=== PATIENT | female | born 1955 | race African-American/Black ===

== ENCOUNTER 2016-08-01 13:05 | Emergency (ER) | payer MEDICARE, OTHER ==
[~2016-08-01 13:05] MED LIST: ACET500T68 PO; ALBU2.5V13 NEB; AMLO5TAB4 PO; ARIP10TA13 PO; ATOR20TA PO; AZIT250T PO; BACL10TA PO; BENZ0.5T PO; CIPR500T94 PO; DARI15TA3 PO; DEXL60CA PO; DIVA500T2 PO; DULO30CA2 PO; ERGO500012 PO; FAMO-63 PO; FAMO20TA5 PO; FESO8TAB PO; FLUT16SP2 NS; FURO20TA3 PO; GABA-585 PO; HYDR-2666 PO; HYDR25TA9 PO; LACT10SO PO; LATA2.5D3 EACHEYE; LUBI24CA5 PO; MELO-150 PO; MESA800T2 PO; METF500T4; METF500T4 PO; OMEP10CA PO; ONDA-35 PO; OXYB10TA PO; OXYC-93 PO; POTA10TA31 PO; PROVENTIL HFA6.7 GM IH; QUET100T4 PO; RANI150C PO; ROPI1TAB2 PO; TOLT4CAP PO; VALS160T3 PO; VENTOLIN HFA18 GM IH; [UNRECOGNIZED DRUG - CODE] PO; [UNRECOGNIZED DRUG - CODE] PO; [UNRECOGNIZED DRUG - OTHER]
--- NOTE | 2016-08-01 13:20 | PHYS DOC ---
Past Medical History Past Medical History: Anxiety, Asthma, COPD, CVA, Depression, Diabetes-Type II , Diverticulitis, GERD, High Cholesterol, Hypertension, [place], Schizophrenia Additional Past Medical Histor: CATARCTS, COPD, NEUROPATHY, coloitis, overactive bladder Past Surgical History: Hysterectomy, Tonsillectomy, Other Additional Past Surgical Histo: CARPAL TUNNEL, HERNIA, Alcohol Use: None Drug Use: None Adult General Chief Complaint Chief Complaint: BLOOD IN URINE HPI HPI 60-year-old female presenting via EMS for persisting low back pain for the last several weeks and now gross hematuria for the last several days. She denies any fever or chills. She denies any chest pain or shortness of breath. She states the pain originates in her bilateral flank area and will radiate into her abdomen. She rates her pain a 7 out of 10 on the pain scale and states she has not yet taken anything for her symptoms. She has history of DM-II, HTN, hypercholesterolemia. Review of Systems Review of Systems Constitutional: Denies fever or chills [] Eyes: Denies change in visual acuity, redness, or eye pain [] HENT: Denies nasal congestion or sore throat [] Respiratory: Denies cough or shortness of breath [] Cardiovascular: No additional information not addressed in HPI [] GI: Denies abdominal pain, nausea, vomiting, bloody stools or diarrhea [] : Denies dysuria, has hematuria [] Musculoskeletal: Denies back pain or joint pain [] Integument: Denies rash or skin lesions [] Neurologic: Denies headache, focal weakness or sensory changes [] Endocrine: Denies polyuria or polydipsia [] Current Medications Current Medications Current Medications Medications (Trade) Dose Ordered Sig/Charmaine Start Time Stop Time Status Last Admin Dose Admin Acetaminophen (Tylenol) 1,000 mg 1X ONCE 08/01/16 15:00 08/01/16 15:01 DC 08/01/16 15:22 1,000 MG Fentanyl Citrate (Fentanyl 2ml Vial) 50 mcg 1X ONCE 08/01/16 13:30 08/01/16 14:32 DC Ondansetron HCl (Zofran) 4 mg 1X ONCE 08/01/16 13:30 08/01/16 13:31 DC Allergies Allergies Allergies Coded Allergies Type Severity Reaction Last Updated Verified Sulfa (Sulfonamide Antibiotics) Allergy Intermediate UNKNOWN REACTION 06/11/15 No adhesive tape Allergy Intermediate RASH 06/11/15 Yes latex Allergy Intermediate LATEX GLOVES CAUSE A RASH 06/11/15 Yes Penicillins Adverse Reaction Severe DIARRHEA 06/11/15 Yes atorvastatin Adverse Reaction Severe MYALGIA 06/11/15 Yes haloperidol Adverse Reaction Severe "I get stiff as a board" 06/11/15 Yes CLAIRE Inhibitors Adverse Reaction Intermediate BAD COUGH 06/11/15 Yes amoxicillin trihydrate Adverse Reaction Intermediate diarrhea 06/11/15 Yes aspirin Adverse Reaction Intermediate "Black tarry stools" 06/11/15 Yes Physical Exam Physical Exam Constitutional: Well developed, well nourished, no acute distress, non-toxic appearance. [] HENT: Normocephalic, atraumatic, bilateral external ears normal, oropharynx moist, no oral exudates, nose normal. [] Eyes: PERRLA, EOMI, conjunctiva normal, no discharge. [] Neck: Normal range of motion, no tenderness, supple, no stridor. [] Cardiovascular:Heart rate regular rhythm, no murmur [] Lungs & Thorax: Bilateral breath sounds clear to auscultation [] Abdomen: Bowel sounds normal, soft, no tenderness, no masses, no pulsatile masses. [] Skin: Warm, dry, no erythema, no rash. [] Back: Moderate paraspinal lumbar tenderness to palpation, mild bilateral CVA tenderness. [] Extremities: No tenderness, no cyanosis, no clubbing, ROM intact, no edema. [] Neurologic: Alert and oriented X 3, normal motor function, normal sensory function, no focal deficits noted. [] Psychologic: Affect normal, judgement normal, mood normal. [] Current Patient Data Vital Signs Vital Signs Date Time Temp Pulse Resp B/P Pulse Ox O2 Delivery O2 Flow Rate FiO2 08/01/16 15:27 73 18 119/58 97 Room Air 08/01/16 13:05 98.1 98.1 Lab Values Laboratory Tests Test 08/01/16 13:30 White Blood Count 8.2x10^3/uL (4.0-11.0) Red Blood Count 3.84x10^6/uL (3.50-5.40) Hemoglobin 10.6g/dL (12.0-15.5) L Hematocrit 33.5% (36.0-47.0) L Mean Corpuscular Volume 87fL (79-100) Mean Corpuscular Hemoglobin 28pg (25-35) Mean Corpuscular Hemoglobin Concent 32g/dL (31-37) Red Cell Distribution Width 12.9% (11.5-14.5) Platelet Count 286x10^3/uL (140-400) Neutrophils (%) (Auto) 62% (31-73) Lymphocytes (%) (Auto) 27% (24-48) Monocytes (%) (Auto) 8% (0-9) Eosinophils (%) (Auto) 1% (0-3) Basophils (%) (Auto) 1% (0-3) Neutrophils # (Auto) 5.1x10^3uL (1.8-7.7) Lymphocytes # (Auto) 2.3x10^3/uL (1.0-4.8) Monocytes # (Auto) 0.6x10^3/uL (0.0-1.1) Eosinophils # (Auto) 0.1x10^3/uL (0.0-0.7) Basophils # (Auto) 0.1x10^3/uL (0.0-0.2) Urine Collection Type Unknown Urine Color Adali Urine Clarity Clear Urine pH 5.5 Urine Specific [place] 1.025 Urine Protein Negativemg/dL (NEG-TRACE) Urine Glucose (UA) Negativemg/dL (NEG) Urine Ketones (Stick) Negativemg/dL (NEG) Urine Blood Negative (NEG) Urine Nitrite Negative (NEG) Urine Bilirubin Small (NEG) Urine Urobilinogen Dipstick 1.0mg/dL (0.2 mg/dL) Urine Leukocyte Esterase Negative (NEG) Urine RBC 0/HPF (0-2) Urine WBC Occ/HPF (0-4) Urine Squamous Epithelial Cells Many/LPF Urine Bacteria Few/HPF (0-FEW) Urine Hyaline Casts Occasional/HPF Urine Mucus Marked/LPF Sodium Level 144mmol/L (136-145) Potassium Level 3.7mmol/L (3.5-5.1) Chloride Level 106mmol/L (98-107) Carbon Dioxide Level 29mmol/L (21-32) Anion Gap 9 (6-14) Blood Urea Nitrogen 18mg/dL (7-20) Creatinine 0.9mg/dL (0.6-1.0) Estimated GFR (Cockcroft-Gault) 77.3 Glucose Level 99mg/dL (70-99) Calcium Level 9.0mg/dL (8.5-10.1) Laboratory Tests 08/01/16 13:30 Laboratory Tests 08/01/16 13:30 EKG EKG [] Radiology/Procedures Radiology/Procedures CT of the abdomen/pelvis without contrast demonstrated the following: [Axial imaging through the abdomen and pelvis was performed without contrast. The lung bases are clear. The liver and gallbladder are unremarkable. The pancreas and spleen are unremarkable. No adrenal mass is detected. No hydronephrosis is identified. There are calcific densities in the region of the proximal and mid ureters but appear to be outside of the ureters and consistent with phleboliths. The small and large bowel loops are normal caliber. There is no ascites. There is mild colonic diverticulosis but no evidence of acute diverticulitis. The bladder is unremarkable. Multiple pelvic phleboliths are present as well. Course & Med Decision Making Course & Med Decision Making Pertinent Labs and Imaging studies reviewed. (See chart for details) 60-year-old female who presented by EMS for ongoing hematuria and bilateral flank pain for the last several weeks. CT of her abdomen and pelvis without contrast was negative for any acute abnormalities. Her bloodwork also did not reveal any abnormalities. Her urinalysis did not reveal any signs of infection and there was no signs of blood. I do not see any indication at this time to put her on any antibiotic therapy. She'll be discharged home to follow closely for her ongoing back pain which is likely more musculoskeletal in etiology. Dragon Disclaimer Dragon Disclaimer This electronic medical record was generated, in whole or in part, using a voice recognition dictation system. Departure Departure Impression: Primary Impression: Flank pain Disposition: 01 HOME, SELF-CARE Condition: STABLE Referrals: ZAIDA VALDEZ MD (PCP) Patient Instructions: Flank Pain, [id number] Additional Instructions: Please follow up with your primary doctor in the next 2-3 days for your flank pain and your blood in the urine. Return to the ER if you develop any worsening of your symptoms. KAYDEN HUGHES DO Aug 01, 2016 13:20
[2016-08-01] MEDS ORDERED: ONDANSETRON PF 4 MG/2 ML VIAL. IV ONE (13:30)
[2016-08-01] MEDS ORDERED: FENTANYL PF 100 MCG/2 ML VIAL. IV ONE (13:30)
[2016-08-01 14:06] LABS: BASO # 0.1 x10^3/uL (0.0-0.2); BASO % 1 % (0-3); EOS % 1 % (0-3); HEMATOCRIT 33.5 % (36.0-47.0); HEMOGLOBIN 10.6 g/dL (12.0-15.5); LYMPH # 2.3 x10^3/uL (1.0-4.8); LYMPH % 27 % (24-48); MEAN CORPUSCULAR HEMOGLOBIN 28 pg (25-35); MEAN CORPUSCULAR HGB CONC 32 g/dL (31-37); MEAN CORPUSCULAR VOLUME 87 fL (79-100); MONO % 8 % (0-9); NEUT % 62 % (31-73); PLATELET COUNT 286 x10^3/uL (140-400); RED BLOOD COUNT 3.84 x10^6/uL (3.50-5.40); RED CELL DISTRIBUTION WIDTH 12.9 % (11.5-14.5); WHITE BLOOD COUNT 8.2 x10^3/uL (4.0-11.0)
[2016-08-01 14:09] LABS: CREATININE 0.9 mg/dL (0.6-1.0); GFR 77.3; POTASSIUM 3.7 mmol/L (3.5-5.1)
--- NOTE | 2016-08-01 14:32 | RAD ---
Indication: Hematuria. Axial imaging through the abdomen and pelvis was performed without contrast. The lung bases are clear. The liver and gallbladder are unremarkable. The pancreas and spleen are unremarkable. No adrenal mass is detected. No hydronephrosis is identified. There are calcific densities in the region of the proximal and mid ureters but appear to be outside of the ureters and consistent with phleboliths. The small and large bowel loops are normal caliber. There is no ascites. There is mild colonic diverticulosis but no evidence of acute diverticulitis. The bladder is unremarkable. Multiple pelvic phleboliths are present as well. Impression: 1. No evidence of urinary tract calculi or obstruction. 2. Uncomplicated diverticulosis. 3. No acute feature in the abdomen or pelvis is identified. PQRS Compliance Statement: One or more of the following individualized dose reduction techniques were utilized for this examination: 1. Automated exposure control 2. Adjustment of the mA and/or kV according to patient size 3. Use of iterative reconstruction technique
[2016-08-01 14:49] LABS: BILIRUBIN,URINE SMALL (NEG); GLUCOSE,URINE NEGATIVE (NEG); NITRITE,URINE NEGATIVE (NEG); PH,URINE 5.5; PROTEIN,URINE NEGATIVE (NEG-TRACE)
[2016-08-01 14:58] LABS: BACTERIA,URINE FEW /HPF (0-FEW); RBC,URINE 0 /HPF (0-2); SQUAMOUS EPITHELIAL CELL,UR MANY /LPF; WBC,URINE OCC /HPF (0-4)
[2016-08-01] MEDS ORDERED: ACETAMINOPHEN 500 MG TABLET PO ONE (15:00)
[2016-08-01 15:27] VITALS: BP 119/58
== END 2016-08-01 15:39 | disposition home or self-care (01) ==
LOC: ER 13:05
DX: R31.9 Hematuria, unspecified (principal); R10.9 Unspecified abdominal pain; J44.9 Chronic obstructive pulmonary disease, unspecified; F32.9 Major depressive disorder, single episode, unspecified; E11.40 Type 2 diabetes mellitus with diabetic neuropathy, unspecified; E78.00 Pure hypercholesterolemia, unspecified; F20.9 Schizophrenia, unspecified; I10 Essential (primary) hypertension; I25.2 Old myocardial infarction; K21.9 Gastro-esophageal reflux disease without esophagitis; M54.5 Low back pain; Z86.73 Personal history of transient ischemic attack (TIA), and cerebral infarction without residual deficits; Z88.0 Allergy status to penicillin; Z91.040 Latex allergy status; Z88.6 Allergy status to analgesic agent; Z88.1 Allergy status to other antibiotic agents; Z88.2 Allergy status to sulfonamides; Z88.8 Allergy status to other drugs, medicaments and biological substances; Z91.048 Other nonmedicinal substance allergy status; Z90.710 Acquired absence of both cervix and uterus
CPT/HCPCS: 36415; 74176; 80048; 81001; 85027; 99285-25

== ENCOUNTER 2016-09-27 14:19 | Emergency (ER) | payer MEDICARE, OTHER ==
[~2016-09-27] VITALS: Ht 161.3 cm; Wt 122.5 kg
[~2016-09-27 14:19] MED LIST changes: -ALBU2.5V13 NEB; +ALBU2.5V14 NEB
--- NOTE | 2016-09-27 15:28 | RAD ---
Chest, 2 views, 09/27/2016: History: Cough Comparison is made to a study from 06/26/2016. The heart size and pulmonary vascularity are normal. No pulmonary infiltrates are seen. There is no evidence of pleural fluid. Moderate spurring is present in the spine. IMPRESSION: No acute cardiopulmonary abnormality is detected.
--- NOTE | 2016-09-27 15:32 | ED.ADGEN ---
Past Medical History Past Medical History: Anxiety, Asthma, COPD, CVA, Depression, Diabetes-Type II , Diverticulitis, GERD, High Cholesterol, Hypertension, [place], Schizophrenia Additional Past Medical Histor: CATARCTS, COPD, NEUROPATHY, coloitis, overactive bladder Past Surgical History: Hysterectomy, Tonsillectomy, Other Additional Past Surgical Histo: CARPAL TUNNEL, HERNIA Alcohol Use: None Drug Use: None Adult General Chief Complaint Chief Complaint: COUGH HPI HPI Patient is a 60 year old woman, history of morbid obesity, COPD, CVA, CAD status post [place], type 2 diabetes mellitus with neuropathy, who presents emergency Department with complaint of cough, productive of white sputum over the past several days, back pain, body aches, sore throat and rhinorrhea. Patient denies any chest pain, is complaining of pain in the upper back, denies any respirophasic pain. Denies any hematemesis, states she has had some nausea, and no vomiting or diarrhea. Denies any weakness numbness or tingling, states that she feels a little bit lightheaded currently, but believes is could she is not yet eaten lunch. Patient states she's been compliant with all medications. Denies any injuries, any recent travel or surgery, history of DVT or PE. She states she did receive her flu vaccination this year. She has had positive sick contacts, her caregivers. No shortness of breath. No swelling in extremities. Review of Systems Review of Systems Constitutional: Objective fevers and chills. Eyes: Denies change in visual acuity. [] HENT: Nasal congestion and sore throat over the past several days. Respiratory: Cough, no shortness of breath, cough is productive of white sputum. Patient with soreness in the upper back. Cardiovascular: Denies chest pain or edema. [] GI: Denies abdominal pain, nausea, vomiting, bloody stools or diarrhea. [] : Denies dysuria. [] Musculoskeletal: He soreness in the upper back, no joint pain. Pain is worse with coughing. Integument: Denies rash. [] Neurologic: Denies headache, focal weakness or sensory changes. [] Endocrine: Denies polyuria or polydipsia. [] Lymphatic: Denies swollen glands. [] Psychiatric: Denies depression or anxiety. [] Current Medications Current Medications Current Medications Medications (Trade) Dose Ordered Sig/Charmaine Start Time Stop Time Status Last Admin Dose Admin Benzonatate (Tessalon Perle) 100 mg 1X ONCE 09/27/16 15:45 09/27/16 15:46 DC 09/27/16 16:02 100 MG Allergies Allergies Allergies Coded Allergies Type Severity Reaction Last Updated Verified Sulfa (Sulfonamide Antibiotics) Allergy Intermediate UNKNOWN REACTION 06/11/15 No adhesive tape Allergy Intermediate RASH 06/11/15 Yes latex Allergy Intermediate LATEX GLOVES CAUSE A RASH 06/11/15 Yes Penicillins Adverse Reaction Severe DIARRHEA 06/11/15 Yes atorvastatin Adverse Reaction Severe MYALGIA 06/11/15 Yes haloperidol Adverse Reaction Severe "I get stiff as a board" 06/11/15 Yes CLAIRE Inhibitors Adverse Reaction Intermediate BAD COUGH 06/11/15 Yes amoxicillin trihydrate Adverse Reaction Intermediate diarrhea 06/11/15 Yes aspirin Adverse Reaction Intermediate "Black tarry stools" 06/11/15 Yes Physical Exam Physical Exam Constitutional: Well developed, well nourished, no acute distress, non-toxic appearance. [] HENT: Normocephalic, atraumatic, bilateral external ears normal, oropharynx moist, no oral exudates, nose normal. [] Eyes: PERRLA, EOMI, conjunctiva normal, no discharge. [] Neck: Normal range of motion, no tenderness, supple, no stridor. [] Cardiovascular:Heart rate regular rhythm, no murmur, S1, S2, rubs or gallops. [] Lungs & Thorax: Bilateral breath sounds clear to auscultation, no wheezing, rhonchi, rales. Mild posterior chest wall tenderness to palpation of the paraspinal region. No sternal signs of trauma, no lesions. [] Abdomen: Bowel sounds normal, soft, obese, no rebound, rigidity, no guarding, no tenderness, no masses, no pulsatile masses. [] Skin: Warm, dry, no erythema, no rash. [] Back: No tenderness, no CVA tenderness. [] Extremities: No tenderness, no cyanosis, no clubbing, ROM intact, no edema. Negative Homans sign. [] Neurologic: Alert and oriented X 3, normal motor function, normal sensory function, no focal deficits noted. [] Psychologic: Affect normal, judgement normal, mood normal. [] Current Patient Data Vital Signs Vital Signs Date Time Temp Pulse Resp B/P Pulse Ox O2 Delivery O2 Flow Rate FiO2 09/27/16 14:27 98.6 70 20 121/77 95 Room Air 98.6 Lab Values Laboratory Tests Test 09/27/16 15:20 09/27/16 16:00 09/27/16 17:40 Influenza Type A Antigen Negative (NEGATIVE) Influenza Type B Antigen Negative (NEGATIVE) White Blood Count 7.5x10^3/uL (4.0-11.0) Red Blood Count 3.98x10^6/uL (3.50-5.40) Hemoglobin 10.9g/dL (12.0-15.5) L Hematocrit 34.4% (36.0-47.0) L Mean Corpuscular Volume 86fL (79-100) Mean Corpuscular Hemoglobin 27pg (25-35) Mean Corpuscular Hemoglobin Concent 32g/dL (31-37) Red Cell Distribution Width 13.5% (11.5-14.5) Platelet Count 290x10^3/uL (140-400) Neutrophils (%) (Auto) 58% (31-73) Lymphocytes (%) (Auto) 33% (24-48) Monocytes (%) (Auto) 7% (0-9) Eosinophils (%) (Auto) 1% (0-3) Basophils (%) (Auto) 1% (0-3) Neutrophils # (Auto) 4.3x10^3uL (1.8-7.7) Lymphocytes # (Auto) 2.5x10^3/uL (1.0-4.8) Monocytes # (Auto) 0.5x10^3/uL (0.0-1.1) Eosinophils # (Auto) 0.1x10^3/uL (0.0-0.7) Basophils # (Auto) 0.0x10^3/uL (0.0-0.2) Sodium Level 143mmol/L (136-145) Potassium Level 3.8mmol/L (3.5-5.1) Chloride Level 105mmol/L (98-107) Carbon Dioxide Level 29mmol/L (21-32) Anion Gap 9 (6-14) Blood Urea Nitrogen 20mg/dL (7-20) Creatinine 1.0mg/dL (0.6-1.0) Estimated GFR (Cockcroft-Gault) 68.4 Glucose Level 103mg/dL (70-99) H Calcium Level 9.3mg/dL (8.5-10.1) Troponin I Quantitative < 0.017ng/mL (0.000-0.055) AT-Mmo-R-Type Natriuretic Peptide 61pg/mL (0-124) POC Troponin I 0.00ng/ml (<0.08) Laboratory Tests 09/27/16 16:00 Laboratory Tests 09/27/16 16:00 EKG EKG EC: Sinus rhythm, heart rate 68 beats/minute, left axis deviation, QTC of 4 08/18/19, [place] 162, QRS of 88, no ST elevations or depressions, aside from left axis deviation, no other abnormalities identified. As interpreted by me. [] Radiology/Procedures Radiology/Procedures [] [facility] [address] [place] [address] IMAGING REPORT Signed PATIENT: NOREEN GUTIERREZ ACCOUNT: [id number] : 1955 LOCATION: ER AGE: 60 SEX: F EXAM STATUS: REG ER ORD. PHYSICIAN: LIN LOOMIS DO REASON: Cough PROCEDURE: CHEST PA & LATERAL Chest, 2 views, 09/27/2016: History: Cough Comparison is made to a study from 06/26/2016. The heart size and pulmonary vascularity are normal. No pulmonary infiltrates are seen. There is no evidence of pleural fluid. Moderate spurring is present in the spine. IMPRESSION: No acute cardiopulmonary abnormality is detected. DICTATED and SIGNED BY: VANESSA SAUNDERS MD DATE: 09/27/16 1524 CC: LIN LOOMIS DO; ZAIDA VALDEZ MD ~ Course & Med Decision Making Course & Med Decision Making Pertinent Labs and Imaging studies reviewed. (See chart for details) Patient's examination is consistent with a viral infection. However with her, multiple comorbidities, and complaint of upper back pain, ECG, laboratory studies obtained rule out any occult abnormalities. Patient's laboratory studies imaging x-ray revealed no evidence of concerning findings. Patient received Tessalon Perle in the ED, stated she was feeling much better on reevaluation, is relieved that she does not have pneumonia or bronchitis. I did discuss findings as above, including negative troponin and negative repeat i- STAT with non-concerning ECG with Dr. Miller the patient's primary care provider, was not seen the patient for some time, is agreeable with plan for the patient to follow-up with her in the office in the outpatient setting, patient to return to the ED if any new or concerning symptoms develop. Patient ambulating without difficulty in the ED, discharged with prescription for Tessalon Perle, instructed to continue home medications, follow-up with Dr. dunne promptly, and return to the ED for any concerning symptoms as discussed. Dragon Disclaimer Dragon Disclaimer This electronic medical record was generated, in whole or in part, using a voice recognition dictation system. Departure Impression: Primary Impression: Viral illness Disposition: HOME, SELF-CARE Condition: IMPROVED Scripts Benzonatate (Tessalon Perle)100 Mg [id number] Mg PO TID PRN COUGH #12 CAP Prov:LIN LOOMIS DO 09/27/16 LIN LOOMIS DO Sep 27, 2016 15:31
[2016-09-27] MEDS ORDERED: BENZONATATE 100 MG CAPSULE. PO ONE (15:45)
[2016-09-27 15:48] LABS: OBC FLU VALID
[2016-09-27 16:07] LABS: BASO % 1 % (0-3); EOS % 1 % (0-3); HEMATOCRIT 34.4 % (36.0-47.0); HEMOGLOBIN 10.9 g/dL (12.0-15.5); LYMPH # 2.5 x10^3/uL (1.0-4.8); LYMPH % 33 % (24-48); MEAN CORPUSCULAR HEMOGLOBIN 27 pg (25-35); MEAN CORPUSCULAR HGB CONC 32 g/dL (31-37); MEAN CORPUSCULAR VOLUME 86 fL (79-100); MONO % 7 % (0-9); NEUT % 58 % (31-73); PLATELET COUNT 290 x10^3/uL (140-400); RED BLOOD COUNT 3.98 x10^6/uL (3.50-5.40); RED CELL DISTRIBUTION WIDTH 13.5 % (11.5-14.5); WHITE BLOOD COUNT 7.5 x10^3/uL (4.0-11.0)
[2016-09-27 16:24] LABS: CALCIUM 9.3 mg/dL (8.5-10.1); GFR 68.4; POTASSIUM 3.8 mmol/L (3.5-5.1)
[2016-09-27] MEDS ORDERED: BENZ100C PO (18:37)
[2016-09-27 18:40] VITALS: BP 122/71
--- NOTE | 2016-09-28 06:14 | EKG ---
[facility] [address] [place] [address] Test Date: 2016-09-27 Test Time: 15:28:12 Pat Name: NOREEN GUTIERREZ Department: Room: Gender: [employer]st: : 1955 Requested By: LIN LOOMIS Order Number: [id number] Reading MD: Measurements Intervals [place] Rate: 68 P: 38 [place]: 162 QRS: -2 QRSD: 88 T: -1 QT: 392 QTc: 422 Interpretive Statements SINUS RHYTHM LEFTWARD AXIS OTHERWISE NORMAL ECG RI6.01 No previous ECG available for comparison
== END 2016-09-27 18:45 | disposition home or self-care (01) ==
LOC: ER 14:19
DX: B34.9 Viral infection, unspecified (principal); J44.9 Chronic obstructive pulmonary disease, unspecified; J45.909 Unspecified asthma, uncomplicated; E11.40 Type 2 diabetes mellitus with diabetic neuropathy, unspecified; E11.36 Type 2 diabetes mellitus with diabetic cataract; I25.10 Atherosclerotic heart disease of native coronary artery without angina pectoris; I25.2 Old myocardial infarction; E78.00 Pure hypercholesterolemia, unspecified; E66.01 Morbid (severe) obesity due to excess calories; Z90.89 Acquired absence of other organs; Z68.1 Body mass index [BMI] 19.9 or less, adult; Z86.73 Personal history of transient ischemic attack (TIA), and cerebral infarction without residual deficits; Z88.0 Allergy status to penicillin; Z88.6 Allergy status to analgesic agent; Z88.1 Allergy status to other antibiotic agents; Z91.040 Latex allergy status; Z88.2 Allergy status to sulfonamides; Z88.8 Allergy status to other drugs, medicaments and biological substances; Z91.048 Other nonmedicinal substance allergy status
CPT/HCPCS: 36415; 71020; 80048; 83880; 84484; 85027; 87804; 93005; 99285-25

== ENCOUNTER 2016-10-24 17:07 | Emergency (ER) | payer MEDICARE, OTHER ==
[~2016-10-24] VITALS: Ht 160 cm; Wt 120.2 kg
[~2016-10-24 17:07] MED LIST changes: +BENZ100C PO
[2016-10-24] MEDS ORDERED: KETOROLAC TROMETHAMINE 60 MG/2 ML INJ. IM ONE (18:30)
[2016-10-24 19:06] LABS: BILIRUBIN,URINE NEGATIVE (NEG); GLUCOSE,URINE NEGATIVE (NEG); NITRITE,URINE NEGATIVE (NEG); PH,URINE 5.5; PROTEIN,URINE NEGATIVE (NEG-TRACE); UROBILINOGEN,URINE 0.2 mg/dL (0.2 mg/dL)
[2016-10-24 19:13] LABS: BACTERIA,URINE MODERATE /HPF (0-FEW); RBC,URINE 0 /HPF (0-2); SQUAMOUS EPITHELIAL CELL,UR OCC /LPF
[2016-10-24 19:17] VITALS: BP 139/70
[2016-10-24] MEDS ORDERED: BENZ100C PO (19:27)
--- NOTE | 2016-10-24 19:27 | PHYS DOC ---
Past Medical History Past Medical History: Anxiety, Asthma, COPD, CVA, Depression, Diabetes-Type II , Diverticulitis, GERD, High Cholesterol, Hypertension, IBS, [place], Schizophrenia Additional Past Medical Histor: CATARCTS, NEUROPATHY, coloitis, overactive bladder Past Surgical History: Hysterectomy, Tonsillectomy, Other Additional Past Surgical Histo: CARPAL TUNNEL, HERNIA Alcohol Use: None Drug Use: None Adult General Chief Complaint Chief Complaint: COUGH HPI HPI This is a 60-year-old female states she's had a chronic cough for the last 6 months after she moved into a department. She denies any new symptoms today other than some mild burning with urination. Patient states she's been on multiple courses of antibiotics and has been on Tessalon Perles as well with minimal to no relief. Patient is speaking in complete sentences at this time and in no acute distress. She denies any specific complaints. She is saturating near 100% on room air. Review of Systems Review of Systems Constitutional: Denies fever or chills [] Eyes: Denies change in visual acuity, redness, or eye pain [] HENT: Denies nasal congestion or sore throat [] Respiratory: Has cough, denies shortness of breath [] Cardiovascular: No additional information not addressed in HPI [] GI: Denies abdominal pain, nausea, vomiting, bloody stools or diarrhea [] : Denies dysuria or hematuria [] Musculoskeletal: Denies back pain or joint pain [] Integument: Denies rash or skin lesions [] Neurologic: Denies headache, focal weakness or sensory changes [] Endocrine: Denies polyuria or polydipsia [] Current Medications Current Medications Current Medications Medications (Trade) Dose Ordered Sig/Charmaine Start Time Stop Time Status Last Admin Dose Admin Ketorolac Tromethamine (Toradol Im) 60 mg 1X ONCE 10/24/16 18:30 10/24/16 18:31 DC 10/24/16 19:24 60 MG Allergies Allergies Allergies Coded Allergies Type Severity Reaction Last Updated Verified Sulfa (Sulfonamide Antibiotics) Allergy Intermediate UNKNOWN REACTION 06/11/15 No adhesive tape Allergy Intermediate RASH 06/11/15 Yes latex Allergy Intermediate LATEX GLOVES CAUSE A RASH 06/11/15 Yes Penicillins Adverse Reaction Severe DIARRHEA 06/11/15 Yes atorvastatin Adverse Reaction Severe MYALGIA 06/11/15 Yes haloperidol Adverse Reaction Severe "I get stiff as a board" 06/11/15 Yes CLAIRE Inhibitors Adverse Reaction Intermediate BAD COUGH 06/11/15 Yes amoxicillin trihydrate Adverse Reaction Intermediate diarrhea 06/11/15 Yes aspirin Adverse Reaction Intermediate "Black tarry stools" 06/11/15 Yes Physical Exam Physical Exam Constitutional: Well developed, well nourished, no acute distress, non-toxic appearance. [] HENT: Normocephalic, atraumatic, bilateral external ears normal, oropharynx moist, no oral exudates, nose normal. [] Eyes: PERRLA, EOMI, conjunctiva normal, no discharge. [] Neck: Normal range of motion, no tenderness, supple, no stridor. [] Cardiovascular:Heart rate regular rhythm, no murmur [] Lungs & Thorax: Bilateral breath sounds clear to auscultation [] Abdomen: Bowel sounds normal, soft, no tenderness, no masses, no pulsatile masses. [] Skin: Warm, dry, no erythema, no rash. [] Back: No tenderness, no CVA tenderness. [] Extremities: No tenderness, no cyanosis, no clubbing, ROM intact, no edema. [] Neurologic: Alert and oriented X 3, normal motor function, normal sensory function, no focal deficits noted. [] Psychologic: Affect normal, judgement normal, mood normal. [] Current Patient Data Vital Signs Vital Signs Date Time Temp Pulse Resp B/P Pulse Ox O2 Delivery O2 Flow Rate FiO2 10/24/16 19:17 71 139/70 98 Room Air 10/24/16 17:30 99.4 16 99.4 Lab Values Laboratory Tests Test 10/24/16 18:50 Urine Color Yellow Urine Clarity Clear Urine pH 5.5 Urine Specific [place] 1.015 Urine Protein Negativemg/dL (NEG-TRACE) Urine Glucose (UA) Negativemg/dL (NEG) Urine Ketones (Stick) Negativemg/dL (NEG) Urine Blood Negative (NEG) Urine Nitrite Negative (NEG) Urine Bilirubin Negative (NEG) Urine Urobilinogen Dipstick 0.2mg/dL (0.2 mg/dL) Urine Leukocyte Esterase Trace (NEG) Urine RBC 0/HPF (0-2) Urine WBC 1-4/HPF (0-4) Urine Squamous Epithelial Cells Occ/LPF Urine Bacteria Moderate/HPF (0-FEW) Urine Hyaline Casts Occasional/HPF Urine Granular Casts Occasional/HPF Urine Mucus Slight/LPF EKG EKG [] Radiology/Procedures Radiology/Procedures [] Course & Med Decision Making Course & Med Decision Making Pertinent Labs and Imaging studies reviewed. (See chart for details) This 60-year-old female with a chronic cough with no new symptoms today had a urinalysis is negative for any signs of infection. I'll be discharging her to the course of Tessalon Perles to follow closely with her primary care doctor. I believe her cough is likely due to an allergen in the home. I counseled her to try to change detergents and that she may need further allergy testing and to continue to take her antihistamines that she is prescribed. She was very agreeable with this plan and was discharged without incident. She was saturating near 100% on room air during her entire ED stay. Dragon Disclaimer Dragon Disclaimer This electronic medical record was generated, in whole or in part, using a voice recognition dictation system. Departure Departure Impression: Primary Impression: Chronic cough Disposition: HOME, SELF-CARE Admitting Physician: Armand Powers Condition: STABLE Referrals: ARMAND POWERS MD (PCP) Patient Instructions: Cough, Adult, [id number] Additional Instructions: Please follow up with Dr. Powers in the next 2-3 days for your chronic cough. Try tessalon perles for your symptoms. Return to the ER if you develop any worsening of your breathing or symptoms. Scripts Benzonatate (Tessalon Perle)100 Mg [id number] Mg PO TID PRN COUGH #15 CAP Prov:KAYDEN HUGHES DO 10/24/16 KAYDEN HUGHES DO Oct 24, 2016 19:27
== END 2016-10-24 19:45 | disposition home or self-care (01) ==
LOC: ER 17:07
DX: R05 Cough (principal); R30.0 Dysuria; F41.9 Anxiety disorder, unspecified; J44.9 Chronic obstructive pulmonary disease, unspecified; J45.909 Unspecified asthma, uncomplicated; F32.9 Major depressive disorder, single episode, unspecified; K21.9 Gastro-esophageal reflux disease without esophagitis; E78.00 Pure hypercholesterolemia, unspecified; I10 Essential (primary) hypertension; E11.42 Type 2 diabetes mellitus with diabetic polyneuropathy; K58.9 Irritable bowel syndrome, unspecified; F20.9 Schizophrenia, unspecified; I25.2 Old myocardial infarction; N32.81 Overactive bladder; Z88.0 Allergy status to penicillin; Z88.6 Allergy status to analgesic agent; Z88.1 Allergy status to other antibiotic agents; Z91.040 Latex allergy status; Z88.2 Allergy status to sulfonamides; Z88.8 Allergy status to other drugs, medicaments and biological substances; Z91.048 Other nonmedicinal substance allergy status; Z86.73 Personal history of transient ischemic attack (TIA), and cerebral infarction without residual deficits
CPT/HCPCS: 81001; 87086; 96372; 99284; J1885

== ENCOUNTER → 2016-11-10 | Outpatient (CLI) | payer MEDICARE, OTHER ==
[2016-10-24 19:17] VITALS: BP 139/70
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
== END | disposition home or self-care (01) ==
LOC: KCIC MRI 11:37
PROVIDERS: ATTEND Physical Medicine & Rehabilitation
DX: M47.892 Other spondylosis, cervical region (principal); M25.511 Pain in right shoulder; R53.1 Weakness; R20.2 Paresthesia of skin
CPT/HCPCS: 72141

== ENCOUNTER 2016-11-16 17:51 | Emergency (ER) | payer MEDICARE, OTHER ==
[~2016-11-16] VITALS: Ht 160 cm; Wt 120.2 kg
--- NOTE | 2016-11-16 19:57 | PHYS DOC ---
Past Medical History Past Medical History: Anxiety, Asthma, COPD, CVA, Depression, Diabetes-Type II , Diverticulitis, GERD, High Cholesterol, Hypertension, IBS, [place], Schizophrenia Additional Past Medical Histor: CATARCTS, NEUROPATHY, coloitis, overactive bladder Past Surgical History: Hysterectomy, Tonsillectomy, Other Additional Past Surgical Histo: CARPAL TUNNEL, HERNIA Alcohol Use: None Drug Use: None Adult General Chief Complaint Chief Complaint: MECHANICAL FALL HPI HPI Patient is a 60 year old the male presents emergency department stating that she became lightheaded and dizzy when she was walking with her walker and fell. She states she fell forward onto her walker. She does state she hit her head. She is complaining of neck pain although she does state she has chronic history of neck pain and discomfort. She does have tenderness noted on the cervical spine. Patient also states that she has having bilateral knee pain and discomfort. Patient denies any chest pain or any shortness of air. She denies any loss of consciousness. Review of Systems Review of Systems Constitutional: Denies fever or chills [] Eyes: Denies change in visual acuity, redness, or eye pain [] HENT: Denies nasal congestion or sore throat [] Respiratory: Denies cough or shortness of breath [] Cardiovascular: No additional information not addressed in HPI [] GI: Denies abdominal pain, nausea, vomiting, bloody stools or diarrhea [] : Denies dysuria or hematuria [] Musculoskeletal: Denies back pain. bilateral knee pain Integument: Denies rash or skin lesions [] Neurologic: headache, denies focal weakness or sensory changes [] Endocrine: Denies polyuria or polydipsia [] Allergies Allergies Allergies Coded Allergies Type Severity Reaction Last Updated Verified Sulfa (Sulfonamide Antibiotics) Allergy Intermediate UNKNOWN REACTION 06/11/15 No adhesive tape Allergy Intermediate RASH 06/11/15 Yes latex Allergy Intermediate LATEX GLOVES CAUSE A RASH 06/11/15 Yes Penicillins Adverse Reaction Severe DIARRHEA 06/11/15 Yes atorvastatin Adverse Reaction Severe MYALGIA 06/11/15 Yes haloperidol Adverse Reaction Severe "I get stiff as a board" 06/11/15 Yes CLAIRE Inhibitors Adverse Reaction Intermediate BAD COUGH 06/11/15 Yes amoxicillin trihydrate Adverse Reaction Intermediate diarrhea 06/11/15 Yes aspirin Adverse Reaction Intermediate "Black tarry stools" 06/11/15 Yes Physical Exam Physical Exam Constitutional: Well developed, well nourished, no acute distress, non-toxic appearance. [] HENT: Normocephalic, atraumatic, bilateral external ears normal, oropharynx moist, no oral exudates, nose normal. [] Eyes: PERRLA, EOMI, conjunctiva normal, no discharge. [] Neck: Normal range of motion, no tenderness, supple, no stridor. [] Cardiovascular:Heart rate regular rhythm, no murmur [] Lungs & Thorax: Bilateral breath sounds clear to auscultation [] Skin: Warm, dry, no erythema, no rash. [] Back: She was noted to have tenderness on the cervical spine. No step-offs no deformities and no crepitus noted.Thoracic or lumbar spine tenderness noted. No crepitus no deformities no step-offs noted. Extremities: Bilateral knee tenderness noted across the patella., no cyanosis, no clubbing, ROM intact, no edema. Peripheral pulses 2+ cap refill brisk less than 2 seconds. Neurologic: Alert and oriented X 3, normal motor function, normal sensory function, no focal deficits noted. [] Psychologic: Affect normal, judgement normal, mood normal. [] Current Patient Data Vital Signs Vital Signs Date Time Temp Pulse Resp B/P (MAP) Pulse Ox O2 Delivery O2 Flow Rate FiO2 11/16/16 20:57 54 146/74 (98) Room Air 11/16/16 19:00 98.1 18 97 98.1 Lab Values Laboratory Tests Test 11/16/16 20:05 White Blood Count 10.3 x10^3/uL (4.0-11.0) Red Blood Count 4.07 x10^6/uL (3.50-5.40) Hemoglobin 11.3 g/dL (12.0-15.5) L Hematocrit 34.3 % (36.0-47.0) L Mean Corpuscular Volume 84 fL (79-100) Mean Corpuscular Hemoglobin 28 pg (25-35) Mean Corpuscular Hemoglobin Concent 33 g/dL (31-37) Red Cell Distribution Width 13.8 % (11.5-14.5) Platelet Count 269 x10^3/uL (140-400) Neutrophils (%) (Auto) 54 % (31-73) Lymphocytes (%) (Auto) 35 % (24-48) Monocytes (%) (Auto) 9 % (0-9) Eosinophils (%) (Auto) 1 % (0-3) Basophils (%) (Auto) 1 % (0-3) Neutrophils # (Auto) 5.5 x10^3uL (1.8-7.7) Lymphocytes # (Auto) 3.6 x10^3/uL (1.0-4.8) Monocytes # (Auto) 0.9 x10^3/uL (0.0-1.1) Eosinophils # (Auto) 0.1 x10^3/uL (0.0-0.7) Basophils # (Auto) 0.1 x10^3/uL (0.0-0.2) Sodium Level 141 mmol/L (136-145) Potassium Level 3.5 mmol/L (3.5-5.1) Chloride Level 107 mmol/L (98-107) Carbon Dioxide Level 27 mmol/L (21-32) Anion Gap 7 (6-14) Blood Urea Nitrogen 32 mg/dL (7-20) H Creatinine 1.0 mg/dL (0.6-1.0) Estimated GFR (Cockcroft-Gault) 68.4 BUN/Creatinine Ratio 32 (6-20) H Glucose Level 122 mg/dL (70-99) H Calcium Level 9.2 mg/dL (8.5-10.1) Total Bilirubin 0.3 mg/dL (0.2-1.0) Aspartate Amino Transferase (AST) 21 U/L (15-37) Alanine Aminotransferase (ALT) 21 U/L (14-59) Alkaline Phosphatase 142 U/L (46-116) H Troponin I Quantitative < 0.017 ng/mL (0.000-0.055) Total Protein 7.1 g/dL (6.4-8.2) Albumin 3.3 g/dL (3.4-5.0) L Albumin/Globulin Ratio 0.9 (1.0-1.7) L Laboratory Tests 11/16/16 20:05 Laboratory Tests 11/16/16 20:05 EKG EKG EKG with a heart rate of 55 sinus rhythm noted no ectopy noted per Dr. Garber. No STEMI. [] Radiology/Procedures Radiology/Procedures [][facility] [address] [place] [address] IMAGING REPORT Signed PATIENT: NOREEN GUTIERREZ ACCOUNT: [id number] : 1955 LOCATION: ER AGE: 60 SEX: F EXAM STATUS: REG ER ORD. PHYSICIAN: PIPPA ANDUJAR APRN REASON: fall PROCEDURE: CT HEAD AND CERVICAL SPINE WO PROCEDURE CT head without contrast. CT cervical spine without contrast. HISTORY Fell, head injury, neck injury TECHNIQUE Exposure: One or more of the following individualized dose reduction techniques were utilized for this exam: 1. Automated exposure control. 2. Adjustment of the mA and/or kV according to patient size. 3. Use of iterative reconstruction technique. [address] imaging skullbase to vertex. Helical noncontrast CT imaging of the cervical spine. COMPARISON CT head April 01, [address] Head: No intracranial hemorrhage, mass, hydrocephalus or infarction. Orbits, paranasal sinuses, mastoids and bones are unremarkable. CT cervical spine: Craniocervical junction intact. Cervical vertebral body height and alignment intact. Congenital narrow cervical spinal canal due to short pedicles combined with ossification of the posterior longitudinal ligament results in multilevel severe spinal canal stenoses C4 through C7. Disc osteophytes contribute to spinal canal and neural foraminal stenoses at several levels as well. Lung apices and paraspinal tissues are unremarkable. Thyroid atrophic or absent. IMPRESSION CT Head: No acute intracranial CT abnormality. CT cervical spine. No acute osseous injury. Stable exam as described above. Electronically signed by: Angeline Reyez MD (November 16, 2016 20:42:55) DICTATED and SIGNED BY: ANGELINE REYEZ MD DATE: 11/16/162041 CC: PIPPA ANDUJAR APRN; NON,STAFF; ZAIDA VALDEZ MD ~ Course & Med Decision Making Course & Med Decision Making Pertinent Labs and Imaging studies reviewed. (See chart for details) Chest x-ray and bilateral knee x-rays were negative per Dr. Mckeon. Patient will be discharged home in stable condition signs symptoms to return back to emergency department been provided. Patient's CBC CMP and troponin were normal. Patient will be recommended to follow-up with primary care physician in the next 7-10 days. Signs symptoms to return back to emergency department been provided. Patient will be recommended to use ice packs. Also recommended he continue to use her walker. She'll be discharged home with recommendations to use home medications for her pain and discomfort. Ice packs on 20 minutes off 20 minutes as mentioned above. Patient was provided with all the lab results and the x-ray results. Patient agrees with discharge instructions treatment regimens and follow-up recommendations. [] Dragon Disclaimer Dragon Disclaimer This electronic medical record was generated, in whole or in part, using a voice recognition dictation system. Departure Departure Impression: Primary Impression: Fall Additional Impressions: Neck pain Bilateral knee pain Disposition: HOME, SELF-CARE Condition: STABLE Referrals: ZAIDA VALDEZ MD (PCP) Patient Instructions: Fall Prevention and Home Safety, [id number], Knee Pain , [id number], Soft Tissue Injury of the Neck, [id number] Additional Instructions: X-rays were negative for any bony abnormalities. Your lab results were all normal. Your EKG was normal as well. Activity as tolerated. Use your walker whenever you are ambulating. You may use your home medications for pain and discomfort. Ice packs on 20 minutes off 20 minutes several times a day. Follow-up through primary care physician in next 3-5 days. Return back to emergency prior signs symptoms of become worse. Problem Qualifiers PIPPA ANDUJAR RN ADMIT November 16, 2016 19:57
[2016-11-16 20:15] LABS: BASO # 0.1 x10^3/uL (0.0-0.2); BASO % 1 % (0-3); EOS % 1 % (0-3); HEMATOCRIT 34.3 % (36.0-47.0); HEMOGLOBIN 11.3 g/dL (12.0-15.5); LYMPH # 3.6 x10^3/uL (1.0-4.8); LYMPH % 35 % (24-48); MEAN CORPUSCULAR HEMOGLOBIN 28 pg (25-35); MEAN CORPUSCULAR HGB CONC 33 g/dL (31-37); MEAN CORPUSCULAR VOLUME 84 fL (79-100); MONO % 9 % (0-9); NEUT % 54 % (31-73); PLATELET COUNT 269 x10^3/uL (140-400); RED BLOOD COUNT 4.07 x10^6/uL (3.50-5.40); RED CELL DISTRIBUTION WIDTH 13.8 % (11.5-14.5); WHITE BLOOD COUNT 10.3 x10^3/uL (4.0-11.0)
[2016-11-16 20:23] LABS: CALCIUM 9.2 mg/dL (8.5-10.1); GFR 68.4; POTASSIUM 3.5 mmol/L (3.5-5.1)
[2016-11-16 20:29] LABS: ALBUMIN 3.3 g/dL (3.4-5.0); ALBUMIN/GLOBULIN RATIO 0.9 (1.0-1.7); TOTAL BILIRUBIN 0.3 mg/dL (0.2-1.0); TOTAL PROTEIN 7.1 g/dL (6.4-8.2)
--- NOTE | 2016-11-16 20:44 | RAD ---
PROCEDURE CT head without contrast. CT cervical spine without contrast. HISTORY Fell, head injury, neck injury TECHNIQUE Exposure: One or more of the following individualized dose reduction techniques were utilized for this exam: 1. Automated exposure control. 2. Adjustment of the mA and/or kV according to patient size. 3. Use of iterative reconstruction technique. [address] imaging skullbase to vertex. Helical noncontrast CT imaging of the cervical spine. COMPARISON CT head April 01, [address] Head: No intracranial hemorrhage, mass, hydrocephalus or infarction. Orbits, paranasal sinuses, mastoids and bones are unremarkable. CT cervical spine: Craniocervical junction intact. Cervical vertebral body height and alignment intact. Congenital narrow cervical spinal canal due to short pedicles combined with ossification of the posterior longitudinal ligament results in multilevel severe spinal canal stenoses C4 through C7. Disc osteophytes contribute to spinal canal and neural foraminal stenoses at several levels as well. Lung apices and paraspinal tissues are unremarkable. Thyroid atrophic or absent. IMPRESSION CT Head: No acute intracranial CT abnormality. CT cervical spine. No acute osseous injury. Stable exam as described above. Electronically signed by: Bradley Reyez MD (November 16, 2016 20:42:55)
[2016-11-16 20:57] VITALS: BP 146/74
--- NOTE | 2016-11-17 09:41 | RAD ---
Exam performed: One view chest and bilateral knees. Indication: light headed and dizzy Date of Service: 11/16/2016 10:00 PM Comparison: 2 views chest from 09/27/16. Single AP upright portable view chest findings: Cardiomediastinal silhouette is within limits of normal. No acute infiltrates, effusion or pneumothorax is detected. The bony structures are normal. Impression: 1. No acute cardiopulmonary process is detected. End impression 4 views bilateral knees findings: There is mild narrowing of bilateral medial and lateral tibiofemoral as well as patellofemoral joints. There is no acute fracture or dislocation. No soft tissue swelling or joint effusion is seen. Impression: 1. Degenerative arthrosis involving bilateral knees. 2. No acute abnormality seen.
--- NOTE | 2016-11-17 09:42 | EKG ---
[facility] [address] [place] [address] Test Date: 2016-11-16 Test Time: 20:20:06 Pat Name: NOREEN GUTIERREZ Department: Room: Gender: F [employer] [place]: : 1955 Requested By: PIPPA ANDUJAR Order Number: [id number] Reading MD: Aquiles Murrell Measurements Intervals [place] Rate: 55 P: 42 [place]: 168 QRS: -2 QRSD: 96 T: 4 QT: 476 QTc: 458 Interpretive Statements SINUS RHYTHM NON-SPECIFIC ST/T CHANGES Electronically Signed On 11-21-2016 9:27:45 CDT by Aquiles Murrell
== END 2016-11-16 21:30 | disposition home or self-care (01) ==
LOC: ER 17:51
DX: M54.2 Cervicalgia (principal); M25.562 Pain in left knee; M25.561 Pain in right knee; R42 Dizziness and giddiness; F41.9 Anxiety disorder, unspecified; J44.9 Chronic obstructive pulmonary disease, unspecified; F32.9 Major depressive disorder, single episode, unspecified; K21.9 Gastro-esophageal reflux disease without esophagitis; E78.00 Pure hypercholesterolemia, unspecified; I10 Essential (primary) hypertension; K58.9 Irritable bowel syndrome, unspecified; I25.2 Old myocardial infarction; F20.9 Schizophrenia, unspecified; E11.42 Type 2 diabetes mellitus with diabetic polyneuropathy; G89.29 Other chronic pain; N32.81 Overactive bladder; Z88.6 Allergy status to analgesic agent; Z88.1 Allergy status to other antibiotic agents; Z91.040 Latex allergy status; Z88.0 Allergy status to penicillin; Z88.2 Allergy status to sulfonamides; Z88.8 Allergy status to other drugs, medicaments and biological substances; Z86.73 Personal history of transient ischemic attack (TIA), and cerebral infarction without residual deficits; Z91.048 Other nonmedicinal substance allergy status; W01.198A Fall on same level from slipping, tripping and stumbling with subsequent striking against other object, initial encounter; Y93.01 Activity, walking, marching and hiking; Y92.89 Other specified places as the place of occurrence of the external cause; Y99.8 Other external cause status
CPT/HCPCS: 36415; 70450; 71010; 72125; 73564; 80053; 84484; 85027; 93005; 99285-25

== ENCOUNTER → 2016-12-22 | Outpatient (CLI) | payer MEDICARE, OTHER ==
[~2016-12-22] MED LIST changes: -ARIP10TA13 PO; +ARIP10TA9 PO; -DEXL60CA PO; +DEXL60CA2 PO; -ERGO500012 PO; +ERGO500027 PO; -HYDR-2666 PO; +HYDR-2758 PO; -LUBI24CA5 PO; +LUBI24CA7 PO; -MELO-150 PO; +MELO15TA23 PO; -ONDA-35 PO; +ONDA4TAB11 PO; +OXYC-314 PO; -OXYC-93 PO; +SIME125C75 PO; -[UNRECOGNIZED DRUG - CODE] PO
--- NOTE | 2016-12-22 17:06 | CARD ---
APPROVED REPORT EXAM: Two-dimensional and M-mode echocardiogram with Doppler and color Doppler. Other Information Quality : GoodHR: 65bpm Rhythm : NSR INDICATION SOA, Pre-op evaluation RISK FACTORS Obesity 2D DIMENSIONS RVDd2.8 (2.9-3.5cm)Left Atrium(2D)3.3 (1.6-4.0cm) IVSd1.4 (0.7-1.1cm)Aortic Root(2D)3.5 (2.0-3.7cm) LVDd5.2 (3.9-5.9cm)LVOT Diameter2.5 (1.8-2.4cm) PWd0.9 (0.7-1.1cm)LVDs4.2 (2.5-4.0cm) FS (%) 19.5 %SV51.3 ml LVEF(%)39.0 (>50%) Aortic Valve AoV Peak Cuong.97.3cm/sAoV VTI16.9cm AO Peak GR.3.8mmHgLVOT Peak Cuong.84.9cm/s AO Mean GR.2mmHgAVA (VMAX)4.25cm2 Mitral Valve MV E Wjanmbld50.9cm/sMV E Peak Gr.2mmHg MV DECEL [id number] A Kseptkrq15.2cm/s MV E Mean Gr.1mmHgE/A Ratio1.4 MV A Hiajalcr50tu Pulmonary Valve PV Peak Vrevkhmq37.5cm/s Pulmonary Vein S1 Qyibxszz55.8cm/sD2 Romvyrtr34.2cm/s PVa [id number] LEFT VENTRICLE The left ventricle is normal size. There is mild concentric left ventricular hypertrophy. Left ventri hollie systolic function is moderately impaired. The Ejection Fraction is 39%. There is moderate global hypokinesis of the left ventricle. The left ventricular diastolic function and filling is normal for age. No left ventricle thrombus noted on this study. RIGHT VENTRICLE The right ventricle is normal size. There is normal right ventricular wall thickness. The right ventr icular systolic function is normal. ATRIA The left atrium size is normal. There are posterior calcifications that may be involving the pericard ium or the pleura. Due to this it is difficult to visualize the area. The right atrium size is normal . The interatrial septum is intact with no evidence for an atrial septal defect or patent foramen ova le as noted on 2-D or Doppler imaging. AORTIC VALVE The aortic valve is mildly sclerotic. The aortic valve is trileaflet. Doppler and Color Flow revealed no significant aortic regurgitation. There is no significant aortic valvular stenosis. MITRAL VALVE Mitral annular calcification is mild. The mitral valve leaflets are thickened. There is no evidence o f mitral valve prolapse. There is no mitral valve stenosis. Doppler and Color Flow revealed trace maury ral valve regurgitation noted. TRICUSPID VALVE Doppler and Color Flow revealed no tricuspid valve regurgitation noted. Unable to determine pulmonary artery pressure at exam time. PULMONIC VALVE Doppler and Color Flow revealed no pulmonic valvular regurgitation. There is no pulmonic valvular gerry nosis. GREAT VESSELS The aortic root is normal in size. The ascending aorta is normal in size. The pulmonary artery is nor mal. The IVC is normal in size and collapses >50% with inspiration. PERICARDIAL EFFUSION There is no evidence of significant pericardial effusion. Some calcifications of the pericardium that may also be mediastinal nodes with calcifications Critical Notification Critical Value: No <Conclusion> Left ventricle systolic function is moderately impaired. The Ejection Fraction is 39%. There is mild concentric left ventricular hypertrophy. There is moderate global hypokinesis of the left ventricle. The left atrium size is normal. There are posterior calcifications that may be involving the pericard ium or the pleura. Due to this it is difficult to visualize the area. The right atrium size is normal. The aortic valve is mildly sclerotic. The aortic valve is trileaflet. Doppler and Color Flow revealed trace mitral valve regurgitation noted. Doppler and Color Flow revealed no tricuspid valve regurgitation noted. Unable to determine pulmonary artery pressure at exam time. Doppler and Color Flow revealed no pulmonic valvular regurgitation. There is no evidence of significant pericardial effusion. Some calcifications of the pericardium that may also be mediastinal nodes with calcifications
== END | disposition home or self-care (01) ==
LOC: ECHO 15:20
PROVIDERS: ATTEND Specialist
DX: Z01.818 Encounter for other preprocedural examination (principal); I51.7 Cardiomegaly; I35.8 Other nonrheumatic aortic valve disorders; I34.0 Nonrheumatic mitral (valve) insufficiency
CPT/HCPCS: 93306

== ENCOUNTER → 2017-01-09 | Outpatient (CLI) | payer MEDICARE, OTHER ==
[~2017-01-09] MED LIST changes: +ATEN50TA PO; +MIRA50TA PO; +MULT1TAB52 PO; +PSYL660P PO; +prolixin IM
[2017-01-09 15:55] LABS: BASO % 1 % (0-3); EOS % 2 % (0-3); HEMATOCRIT 34.3 % (36.0-47.0); LYMPH # 2.3 x10^3/uL (1.0-4.8); LYMPH % 28 % (24-48); MEAN CORPUSCULAR HEMOGLOBIN 27 pg (25-35); MEAN CORPUSCULAR HGB CONC 32 g/dL (31-37); MEAN CORPUSCULAR VOLUME 85 fL (79-100); MONO % 7 % (0-9); NEUT % 62 % (31-73); PLATELET COUNT 295 x10^3/uL (140-400); RED BLOOD COUNT 4.02 x10^6/uL (3.50-5.40); RED CELL DISTRIBUTION WIDTH 13.7 % (11.5-14.5); WHITE BLOOD COUNT 8.1 x10^3/uL (4.0-11.0)
[2017-01-09 16:01] LABS: PROTHROMBIN TIME PATIENT 12.9 SEC (11.7-14.0)
[2017-01-09 16:11] LABS: ALBUMIN 3.5 g/dL (3.4-5.0); ALBUMIN/GLOBULIN RATIO 0.9 (1.0-1.7); CALCIUM 8.8 mg/dL (8.5-10.1); CREATININE 0.9 mg/dL (0.6-1.0); POTASSIUM 3.9 mmol/L (3.5-5.1); TOTAL BILIRUBIN 0.4 mg/dL (0.2-1.0); TOTAL PROTEIN 7.4 g/dL (6.4-8.2)
== END | disposition home or self-care (01) ==
LOC: SURGPAT 14:06
PROVIDERS: ATTEND Neurological Surgery
DX: M17.12 Unilateral primary osteoarthritis, left knee (principal)
CPT/HCPCS: 36415; 80053; 85027; 85610; 85730; 87641

== ENCOUNTER 2017-01-15 14:36 | Emergency (ER) | payer MEDICARE, OTHER ==
[~2017-01-15] VITALS: Ht 157.5 cm; Wt 121.1 kg
[2017-01-15 15:30] VITALS: BP 138/76
--- NOTE | 2017-01-15 15:37 | PHYS DOC ---
Past Medical History Past Medical History: Anxiety, Asthma, COPD, CVA, Depression, Diabetes-Type II , Diverticulitis, GERD, High Cholesterol, Hypertension, IBS, [place], Schizophrenia Additional Past Medical Histor: CATARCTS, NEUROPATHY, coloitis, overactive bladder Past Surgical History: Hysterectomy, Tonsillectomy, Other Additional Past Surgical Histo: CARPAL TUNNEL, HERNIA Alcohol Use: None Drug Use: None Adult General Chief Complaint Chief Complaint: PAIN CONTROL HPI HPI Patient is a 61 year old with c/o chronic pain syndrome, no new injury. She is using OTC tylenol without relief of sx. She has not used any pain medications for twenty four hours. Review of Systems Review of Systems Constitutional: Denies fever or chills [] Eyes: Denies change in visual acuity, redness, or eye pain [] HENT: Denies nasal congestion or sore throat [] Respiratory: Denies cough or shortness of breath [] Cardiovascular: No additional information not addressed in HPI [] GI: Denies abdominal pain, nausea, vomiting, bloody stools or diarrhea [] : Denies dysuria or hematuria [] Musculoskeletal: Denies back pain or joint pain [] Integument: Denies rash or skin lesions [] Neurologic: Denies headache, focal weakness or sensory changes [] Endocrine: Denies polyuria or polydipsia [] Current Medications Current Medications Current Medications Medications (Trade) Dose Ordered Sig/Charmaine Start Time Stop Time Status Last Admin Dose Admin Morphine Sulfate 4 mg 1X ONCE 01/15/17 15:45 01/15/17 15:46 DC 01/15/17 15:45 4 MG Allergies Allergies Allergies Coded Allergies Type Severity Reaction Last Updated Verified Sulfa (Sulfonamide Antibiotics) Allergy Intermediate UNKNOWN REACTION 06/11/15 No adhesive tape Allergy Intermediate RASH 06/11/15 Yes latex Allergy Intermediate LATEX GLOVES CAUSE A RASH 06/11/15 Yes I S O L A T I O N *CONTACT* Allergy Unknown 01/11/17 Yes Penicillins Adverse Reaction Severe DIARRHEA 06/11/15 Yes atorvastatin Adverse Reaction Severe MYALGIA 06/11/15 Yes haloperidol Adverse Reaction Severe "I get stiff as a board" 06/11/15 Yes CLAIRE Inhibitors Adverse Reaction Intermediate BAD COUGH 06/11/15 Yes amoxicillin trihydrate Adverse Reaction Intermediate diarrhea 06/11/15 Yes aspirin Adverse Reaction Intermediate "Black tarry stools" 06/11/15 Yes Physical Exam Physical Exam Constitutional: Well developed, well nourished, no acute distress, non-toxic appearance. [] HENT: Normocephalic, atraumatic, bilateral external ears normal, oropharynx moist, no oral exudates, nose normal. [] Eyes: PERRLA, EOMI, conjunctiva normal, no discharge. [] Neck: Normal range of motion, no tenderness, supple, no stridor. [] Cardiovascular:Heart rate regular rhythm, no murmur [] Lungs & Thorax: Bilateral breath sounds clear to auscultation [] Abdomen: Bowel sounds normal, soft, no tenderness, no masses, no pulsatile masses. [] Skin: Warm, dry, no erythema, no rash. [] MS: general discomfort to palp. Neurologic: Alert and oriented X 3, normal motor function, normal sensory function, no focal deficits noted. [] Psychologic: Affect normal, judgement normal, mood normal. [] Current Patient Data Vital Signs Vital Signs Date Time Temp Pulse Resp B/P (MAP) Pulse Ox O2 Delivery O2 Flow Rate FiO2 01/15/17 15:45 22 96 Room Air 01/15/17 15:30 98.1 64 98.1 EKG EKG [] Radiology/Procedures Radiology/Procedures [] Course & Med Decision Making Course & Med Decision Making Pertinent Labs and Imaging studies reviewed. (See chart for details) 4mg Morphine IM in ED. I discussed with the patient and her family need to follow up with her primary care for further management of her chronic pain condition. Patient and her family members verbalized understanding and agreement plan. [] Dragon Disclaimer Dragon Disclaimer This electronic medical record was generated, in whole or in part, using a voice recognition dictation system. Departure Departure Impression: Primary Impression: Chronic pain Disposition: HOME, SELF-CARE Condition: STABLE Referrals: ZAIDA VALDEZ MD (PCP) Patient Instructions: Chronic Pain Additional Instructions: Follow-up with your primary care provider tomorrow for further evaluation and treatment of your chronic pain condition. Problem Qualifiers Primary Impression: Chronic pain Chronic pain type: chronic pain syndrome Qualified Codes: G89.4 - Chronic pain syndrome TASHA RODRIGUEZ DIRECTOR OF DIVERSITY AND INCLUSION Jan 15, 2017 15:37
[2017-01-15] MEDS ORDERED: MORPHINE SULFATE 4 MG/ML DISP.SYRIN. IM ONE (15:45)
== END 2017-01-15 16:18 | disposition home or self-care (01) ==
LOC: ER 14:36
DX: G89.4 Chronic pain syndrome (principal); F41.9 Anxiety disorder, unspecified; J44.9 Chronic obstructive pulmonary disease, unspecified; F32.9 Major depressive disorder, single episode, unspecified; K21.9 Gastro-esophageal reflux disease without esophagitis; E78.00 Pure hypercholesterolemia, unspecified; I10 Essential (primary) hypertension; K58.9 Irritable bowel syndrome, unspecified; I25.2 Old myocardial infarction; F20.9 Schizophrenia, unspecified; E11.40 Type 2 diabetes mellitus with diabetic neuropathy, unspecified; N32.81 Overactive bladder; E11.36 Type 2 diabetes mellitus with diabetic cataract; Z98.49 Cataract extraction status, unspecified eye; Z88.6 Allergy status to analgesic agent; Z91.041 Radiographic dye allergy status; Z91.040 Latex allergy status; Z88.2 Allergy status to sulfonamides; Z88.8 Allergy status to other drugs, medicaments and biological substances; Z91.048 Other nonmedicinal substance allergy status; Z86.73 Personal history of transient ischemic attack (TIA), and cerebral infarction without residual deficits; Z88.0 Allergy status to penicillin; Z88.1 Allergy status to other antibiotic agents
CPT/HCPCS: 96372; 99283; J2270

== ENCOUNTER 2017-02-28 21:13 | Emergency (ER) | payer MEDICARE, OTHER ==
[2017-02-04 15:00] VITALS: BP 132/67
== END 2017-02-28 21:25 | disposition left against medical advice (07) ==
LOC: ER 21:13
DX: Z76.0 Encounter for issue of repeat prescription (principal); Z53.21 Procedure and treatment not carried out due to patient leaving prior to being seen by health care provider

== ENCOUNTER → 2018-05-22 | Outpatient (CLI) | payer MEDICARE, OTHER ==
[2017-10-30 17:02] VITALS: BP 136/82
[~2018-05-22] MED LIST changes: +ACET500T33 PO; -BENZ0.5T PO; +BENZ0.5T32 PO; +BISA10SU55 RC; +CARV3.122 PO; +CHOL500016 PO; +DIVA250T PO; +DOCU100C28 PO; +FLUT9.9S NS; +HYDR12.58 PO; +IPRA3AMP29 NEB; +IPRA4AER IH; +LATA2.5D3 OP; +LEVO150T5 PO; +MAG355OR12 PO; +MAGN400O7 PO; +MELA3TAB2 PO; +MENT113G6 TP; +MESA1.2T PO; +METF500T16; +METF500T16 PO; -METF500T4; -METF500T4 PO; +MULT-460 PO; +NA P133E2 RC; +OLAN5TAB3 PO; +ONDA4TAB10 SL; +PANT20TA2 PO; +POLY17PO29 PO; +PSYL0.4C PO; +RISP0.5T3 PO; +ROPI1TAB PO; +TOLT2CAP PO
--- NOTE | 2018-05-22 15:29 | RAD ---
DATE: 05/22/2018 EXAM: DIGITAL SCREEN BILAT W/CAD HISTORY: Routine screening COMPARISON: 10/19/2015 and 10/15/2014 screening mammographic exams This study was interpreted with the benefit of Computerized Aided Detection (CAD). Breast Density: SCATTERED The breast parenchyma shows scattered fibroglandular densities. Breast parenchyma level B. FINDINGS: Benign-appearing axillary lymph nodes are present. No masses, calcification clusters, or distortion. Benign calcifications are present. IMPRESSION: Normal BI-RADS CATEGORY: 2 BENIGN FINDING(S) RECOMMENDED FOLLOW-UP: 12M 12 MONTH FOLLOW-UP PQRS compliance statement: Patient information was entered into a reminder system with a target due date in 1 year for the next mammogram. Mammography is a sensitive method for finding small breast cancers, but it does not detect them all and is not a substitute for careful clinical examination. A negative mammogram does not negate a clinically suspicious finding and should not result in delay in biopsying a clinically suspicious abnormality. "Our facility is accredited by the [employer] Mammography Program."
== END | disposition home or self-care (01) ==
LOC: MAMMO 13:58
PROVIDERS: ATTEND Family Medicine
DX: Z12.31 Encounter for screening mammogram for malignant neoplasm of breast (principal)
CPT/HCPCS: 77067

== ENCOUNTER 2018-07-13 17:40 | Emergency (ER) | payer MEDICAID, OTHER ==
[~2018-07-13] VITALS: Ht 162.6 cm; Wt 122.9 kg
[~2018-07-13 17:40] MED LIST changes: +ALBU2.5V8 IH; +CARV3.1210 PO; -CARV3.122 PO; +HYDR-2145 PO; -HYDR-2758 PO; +HYDR-2761 PO; -HYDR25TA9 PO; -PROVENTIL HFA6.7 GM IH
--- NOTE | 2018-07-13 19:21 | PHYS DOC ---
Past Medical History Past Medical History: Anxiety, Asthma, COPD, CVA, Depression, Diabetes-Type II , Diverticulitis, GERD, High Cholesterol, Hypertension, IBS, CT, Schizophrenia Additional Past Medical Histor: CATARCTS, NEUROPATHY, colitis, overactive bladder Past Surgical History: Hysterectomy, Tonsillectomy, Other Additional Past Surgical Histo: CARPAL TUNNEL, HERNIA Alcohol Use: None Drug Use: None Adult General Chief Complaint Chief Complaint: ANXIETY/PANIC ATTACK HPI HPI Patient is a 62 year old female who presents with multiple symptoms for the past 3 days to include a headache that's like her usual migraine, not worst headache of life, no nausea or vomiting. She also reports that her legs feel heavy for the same period of time. There is been no lower extremity swelling. No shortness of breath. No cough. No chest pain. Nothing seems to make the symptoms better or worse. Patient was at the hospital for an eye appointment and became tearful, not wanting to go back to the residential facility across the street where she lives because they "don't take me seriously there."[] Review of Systems Review of Systems Constitutional: Denies fever or chills [] Eyes: Denies change in visual acuity, redness, or eye pain [] HENT: Denies nasal congestion or sore throat [] Respiratory: Denies cough or shortness of breath [] Cardiovascular: No chest pain or palpitations] GI: Denies abdominal pain, nausea, vomiting, bloody stools or diarrhea [] : Denies dysuria or hematuria [] Musculoskeletal: Denies back pain or joint pain [] Integument: Denies rash or skin lesions [] Neurologic: Denies, focal weakness or sensory changes [] Endocrine: Denies polyuria or polydipsia [] All other systems were reviewed and found to be within normal limits, except as documented in this note. Current Medications Current Medications Current Medications Medications (Trade) Dose Ordered Sig/Charmaine Start Time Stop Time Status Last Admin Dose Admin Diphenhydramine HCl (Benadryl) 25 mg 1X ONCE 07/13/18 19:30 07/13/18 19:31 DC Metoclopramide HCl (Reglan Vial) 10 mg 1X ONCE 07/13/18 19:30 07/13/18 19:31 DC 07/13/18 19:49 10 MG Allergies Allergies Allergies Coded Allergies Type Severity Reaction Last Updated Verified Sulfa (Sulfonamide Antibiotics) Allergy Intermediate UNKNOWN REACTION 02/02/17 Yes adhesive tape Allergy Intermediate RASH 02/01/17 Yes latex Allergy Intermediate LATEX GLOVES CAUSE A RASH 02/01/17 Yes I S O L A T I O N *CONTACT* Allergy Unknown 02/01/17 Yes Penicillins Adverse Reaction Severe DIARRHEA 06/11/15 Yes atorvastatin Adverse Reaction Severe MYALGIA 06/11/15 Yes haloperidol Adverse Reaction Severe "I get stiff as a board" 06/11/15 Yes CLAIRE Inhibitors Adverse Reaction Intermediate BAD COUGH 06/11/15 Yes amoxicillin trihydrate Adverse Reaction Intermediate diarrhea 06/11/15 Yes aspirin Adverse Reaction Intermediate "Black tarry stools" 06/11/15 Yes Physical Exam Physical Exam Constitutional: Well developed, well nourished, no acute distress, non-toxic appearance. [] HENT: Normocephalic, atraumatic, bilateral external ears normal, oropharynx moist, no oral exudates, nose normal. [] Eyes: PERRLA, EOMI, conjunctiva normal, no discharge. [] Neck: Normal range of motion, no tenderness, supple, no stridor. [] Cardiovascular:Heart rate regular rhythm, no murmur [] Lungs & Thorax: Bilateral breath sounds clear to auscultation [] Abdomen: Bowel sounds normal, soft, no tenderness, no masses, no pulsatile masses. [] Skin: Warm, dry, no erythema, no rash. [] Back: No tenderness, no CVA tenderness. [] Extremities: No tenderness, no cyanosis, no clubbing, ROM intact, no edema. [] Neurologic: Alert and oriented X 3, normal motor function, normal sensory function, no focal deficits noted. [] Psychologic: Affect depressed, judgement normal, mood tearful, no suicidal or homicidal ideation.. [] Current Patient Data Vital Signs Vital Signs Date Time Temp Pulse Resp B/P (MAP) Pulse Ox O2 Delivery O2 Flow Rate FiO2 07/13/18 19:23 97.0 74 18 147/73 (97) 99 Room Air 97.0 Lab Values Laboratory Tests Test 07/13/18 19:35 07/13/18 20:25 White Blood Count 6.9 x10^3/uL (4.0-11.0) Red Blood Count 3.82 x10^6/uL (3.50-5.40) Hemoglobin 11.2 g/dL (12.0-15.5) L Hematocrit 33.7 % (36.0-47.0) L Mean Corpuscular Volume 88 fL (79-100) Mean Corpuscular Hemoglobin 29 pg (25-35) Mean Corpuscular Hemoglobin Concent 33 g/dL (31-37) Red Cell Distribution Width 13.5 % (11.5-14.5) Platelet Count 200 x10^3/uL (140-400) Neutrophils (%) (Auto) 57 % (31-73) Lymphocytes (%) (Auto) 33 % (24-48) Monocytes (%) (Auto) 9 % (0-9) Eosinophils (%) (Auto) 1 % (0-3) Basophils (%) (Auto) 1 % (0-3) Neutrophils # (Auto) 3.9 x10^3uL (1.8-7.7) Lymphocytes # (Auto) 2.3 x10^3/uL (1.0-4.8) Monocytes # (Auto) 0.6 x10^3/uL (0.0-1.1) Eosinophils # (Auto) 0.1 x10^3/uL (0.0-0.7) Basophils # (Auto) 0.1 x10^3/uL (0.0-0.2) Prothrombin Time 12.5 SEC (11.7-14.0) Prothrombin Time INR 1.0 (0.8-1.1) Sodium Level 143 mmol/L (136-145) Potassium Level 3.7 mmol/L (3.5-5.1) Chloride Level 106 mmol/L (98-107) Carbon Dioxide Level 30 mmol/L (21-32) Anion Gap 7 (6-14) Blood Urea Nitrogen 19 mg/dL (7-20) Creatinine 0.9 mg/dL (0.6-1.0) Estimated GFR (Cockcroft-Gault) 76.8 BUN/Creatinine Ratio 21 (6-20) H Glucose Level 92 mg/dL (70-99) Calcium Level 8.8 mg/dL (8.5-10.1) Total Bilirubin 0.2 mg/dL (0.2-1.0) Aspartate Amino Transferase (AST) 15 U/L (15-37) Alanine Aminotransferase (ALT) 11 U/L (14-59) L Alkaline Phosphatase 114 U/L (46-116) Troponin I Quantitative < 0.017 ng/mL (0.000-0.055) UU-Hvf-R-Type Natriuretic Peptide 106 pg/mL (0-124) Total Protein 7.1 g/dL (6.4-8.2) Albumin 2.9 g/dL (3.4-5.0) L Albumin/Globulin Ratio 0.7 (1.0-1.7) L Lipase 82 U/L (73-393) Valproic Acid Level mcg/mL (50-100) Valproic Acid Last Dose Date Unk Valproic Acid Last Dose Time Unk Urine Collection Type U cath Urine Color Yellow Urine Clarity Clear Urine pH 6.5 Urine Specific [place] 1.020 Urine Protein Negative mg/dL (NEG-TRACE) Urine Glucose (UA) Negative mg/dL (NEG) Urine Ketones (Stick) Negative mg/dL (NEG) Urine Blood Negative (NEG) Urine Nitrite Negative (NEG) Urine Bilirubin Negative (NEG) Urine Urobilinogen Dipstick 1.0 mg/dL (0.2 mg/dL) Urine Leukocyte Esterase Negative (NEG) Urine RBC 0 /HPF (0-2) Urine WBC Occ /HPF (0-4) Urine Squamous Epithelial Cells Occ /LPF Urine Bacteria 0 /HPF (0-FEW) Laboratory Tests 07/13/18 19:35 Laboratory Tests 07/13/18 19:35 EKG EKG EKG shows a sinus rhythm at 65 bpm, normal axis, QTC 435 ms, no ST elevations, nonspecific T-wave abnormality in the anterior leads, no acute changes when compared with a 26/02/2017.[] Radiology/Procedures Radiology/Procedures [] Course & Med Decision Making Course & Med Decision Making Pertinent Labs and Imaging studies reviewed. (See chart for details) ED course: Patient arrived, was placed in bed, tolerated exam well. After the return of the laboratory findings including a Depakote level that is 50.5, these were discussed with the patient who voiced understanding. Patient was discharged in improved condition. Medical decision making: There does not appear to be an acute coronary syndrome , CHF, significant electrolyte abnormality, urinary tract infection, nor other apparent lay for limb threatening condition at this time. No evidence of meningitis, encephalitis, stroke syndrome, nor subarachnoid bleed.[] Dragon Disclaimer Dragon Disclaimer This electronic medical record was generated, in whole or in part, using a voice recognition dictation system. Departure Departure Impression: Primary Impression: Headache Additional Impression: Anxiety Disposition: 01 HOME, SELF-CARE Condition: GOOD Referrals: ZAIDA VALDEZ MD (PCP) Follow-up in 2 days Patient Instructions: Anxiety and Panic Attacks, General Headache Without Cause Additional Instructions: Follow-up with your regular doctor. Take your medication as prescribed. Return to the ER if worsening pain or any other concerns. Problem Qualifiers Primary Impression: Headache Headache type: unspecified Headache chronicity pattern: episodic headache Intractability: not intractable Qualified Codes: R51 - Headache MAGUI WESTBROOK DO Jul 13, 2018 19:21
[2018-07-13] MEDS ORDERED: diphenhydrAMINE 50 MG/ML VIAL IVP ONE (19:30)
[2018-07-13] MEDS ORDERED: METOCLOPRAMIDE HCL 10 MG/2 ML VIAL. IV ONE (19:30)
[2018-07-13 19:57] LABS: BASO # 0.1 x10^3/uL (0.0-0.2); BASO % 1 % (0-3); EOS # 0.1 x10^3/uL (0.0-0.7); EOS % 1 % (0-3); HEMATOCRIT 33.7 % (36.0-47.0); HEMOGLOBIN 11.2 g/dL (12.0-15.5); LYMPH # 2.3 x10^3/uL (1.0-4.8); LYMPH % 33 % (24-48); MEAN CORPUSCULAR HEMOGLOBIN 29 pg (25-35); MEAN CORPUSCULAR HGB CONC 33 g/dL (31-37); MEAN CORPUSCULAR VOLUME 88 fL (79-100); MONO # 0.6 x10^3/uL (0.0-1.1); MONO % 9 % (0-9); NEUT # 3.9 x10^3uL (1.8-7.7); NEUT % 57 % (31-73); PLATELET COUNT 200 x10^3/uL (140-400); RED BLOOD COUNT 3.82 x10^6/uL (3.50-5.40); RED CELL DISTRIBUTION WIDTH 13.5 % (11.5-14.5); WHITE BLOOD COUNT 6.9 x10^3/uL (4.0-11.0)
[2018-07-13 19:58] LABS: ANION GAP 7 (6-14); BLOOD UREA NITROGEN 19 mg/dL (7-20); BUN/CREATININE RATIO 21 (6-20); CALCIUM 8.8 mg/dL (8.5-10.1); CARBON DIOXIDE 30 mmol/L (21-32); CHLORIDE 106 mmol/L (98-107); CREATININE 0.9 mg/dL (0.6-1.0); GFR 76.8; GLUCOSE 92 mg/dL (70-99); POTASSIUM 3.7 mmol/L (3.5-5.1); SODIUM 143 mmol/L (136-145)
[2018-07-13 20:00] LABS: PROTHROMBIN TIME PATIENT 12.5 SEC (11.7-14.0)
[2018-07-13 20:06] LABS: ALBUMIN 2.9 g/dL (3.4-5.0); ALBUMIN/GLOBULIN RATIO 0.7 (1.0-1.7); ALK PHOS 114 U/L (46-116); ALT (SGPT) 11 U/L (14-59); AST (SGOT) 15 U/L (15-37); LIPASE 82 U/L (73-393); TOTAL BILIRUBIN 0.2 mg/dL (0.2-1.0); TOTAL PROTEIN 7.1 g/dL (6.4-8.2)
[2018-07-13 20:54] LABS: BILIRUBIN,URINE NEGATIVE (NEG); CLARITY,URINE CLEAR; COLOR,URINE YELLOW; NITRITE,URINE NEGATIVE (NEG); PH,URINE 6.5; PROTEIN,URINE NEGATIVE (NEG-TRACE)
[2018-07-13 20:59] LABS: BACTERIA,URINE 0 /HPF (0-FEW); RBC,URINE 0 /HPF (0-2); SQUAMOUS EPITHELIAL CELL,UR OCC /LPF; WBC,URINE OCC /HPF (0-4)
[2018-07-13 21:15] LABS: VAL ACID 51 mcg/mL (50-100)
[2018-07-13 22:00] VITALS: BP 160/70
--- NOTE | 2018-07-14 09:43 | EKG ---
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
== END 2018-07-13 22:05 | disposition home or self-care (01) ==
LOC: ER 17:40
DX: F41.9 Anxiety disorder, unspecified (principal); R51 Headache; G43.909 Migraine, unspecified, not intractable, without status migrainosus; J44.9 Chronic obstructive pulmonary disease, unspecified; F32.9 Major depressive disorder, single episode, unspecified; K21.9 Gastro-esophageal reflux disease without esophagitis; E78.00 Pure hypercholesterolemia, unspecified; I10 Essential (primary) hypertension; I25.2 Old myocardial infarction; F20.9 Schizophrenia, unspecified; K58.9 Irritable bowel syndrome, unspecified; Z90.710 Acquired absence of both cervix and uterus; E11.40 Type 2 diabetes mellitus with diabetic neuropathy, unspecified; Z88.2 Allergy status to sulfonamides; Z88.1 Allergy status to other antibiotic agents; Z88.0 Allergy status to penicillin; Z91.040 Latex allergy status; Z91.041 Radiographic dye allergy status; Z88.6 Allergy status to analgesic agent; Z88.8 Allergy status to other drugs, medicaments and biological substances
CPT/HCPCS: 36415; 80053; 80164; 81001; 83690; 83880; 84484; 85025; 85610; 93005; 96374; 99284; J2765

== ENCOUNTER 2018-07-22 14:05 | Emergency (ER) | payer OTHER ==
[~2018-07-22] VITALS: Ht 162.6 cm; Wt 122.9 kg
[~2018-07-22 14:05] MED LIST changes: +LIALDA1.2 GM PO; -MESA1.2T PO; -SIME125C75 PO; +SIME125C76 PO
--- NOTE | 2018-07-22 14:14 | PHYS DOC ---
Past Medical History Past Medical History: Anxiety, Asthma, COPD, CVA, Depression, Diabetes-Type II , Diverticulitis, GERD, High Cholesterol, Hypertension, IBS, [place], Schizophrenia Additional Past Medical Histor: CATARCTS, NEUROPATHY, colitis, overactive bladder Past Surgical History: Hysterectomy, Tonsillectomy, Other Additional Past Surgical Histo: CARPAL TUNNEL, HERNIA Alcohol Use: None Drug Use: None Adult General HPI HPI 62-year-old female presents to ER via EMS from local [place] [facility] for complaints of slipping and falling while getting out of bed around 12 PM today. Patient denies striking her head or having loss of consciousness. Patient states she is having head, neck, and mid to lower back pain since fall. Pt denies any medication for pain prior to arrival. She denies any dizziness, eye pain, or nausea and vomiting. She denies sxs prior to fall. EMS report pt has been A&Ox3 at facility and during transport. Review of Systems Review of Systems Constitutional: Denies fever or chills. Denies fatigue Eyes: Denies change in visual acuity, redness, or eye pain [] HENT: Denies nasal congestion or sore throat [] Respiratory: Denies cough or shortness of breath [] Cardiovascular: Denies chest pain or palpitations GI: Denies abdominal pain, nausea, vomiting, bloody stools or diarrhea [] : Denies dysuria or hematuria and denies incontinence of bowel or bladder Musculoskeletal: Reports neck and mid to lower back pain Integument: Denies rash or skin lesions [] Neurologic: Denies focal weakness or sensory changes. Denies numbness or tingling. Denies dizziness All other systems were reviewed and found to be within normal limits, except as documented in this note. Current Medications Current Medications Current Medications Medications (Trade) Dose Ordered Sig/Charmaine Start Time Stop Time Status Last Admin Dose Admin Acetaminophen (Tylenol) 650 mg 1X ONCE 07/22/18 14:15 07/22/18 14:16 DC 07/22/18 14:39 650 MG Allergies Allergies Allergies Coded Allergies Type Severity Reaction Last Updated Verified Sulfa (Sulfonamide Antibiotics) Allergy Intermediate UNKNOWN REACTION 02/02/17 Yes adhesive tape Allergy Intermediate RASH 02/01/17 Yes latex Allergy Intermediate LATEX GLOVES CAUSE A RASH 02/01/17 Yes I S O L A T I O N *CONTACT* Allergy Unknown 02/01/17 Yes Penicillins Adverse Reaction Severe DIARRHEA 06/11/15 Yes atorvastatin Adverse Reaction Severe MYALGIA 06/11/15 Yes haloperidol Adverse Reaction Severe "I get stiff as a board" 06/11/15 Yes CLAIRE Inhibitors Adverse Reaction Intermediate BAD COUGH 06/11/15 Yes amoxicillin trihydrate Adverse Reaction Intermediate diarrhea 06/11/15 Yes aspirin Adverse Reaction Intermediate "Black tarry stools" 06/11/15 Yes Physical Exam Physical Exam Constitutional: Well developed, well nourished, no acute distress, non-toxic appearance. Clear speech HENT: Normocephalic, atraumatic, bilateral ears normal, oropharynx moist, no oral injury, nose normal. [] Eyes: 3mm PERRLA, EOMI, no nystagmus, conjunctiva normal, no discharge. [] Neck: Normal range of motion, no tenderness, supple, no stridor. [] Cardiovascular: Heart rate regular rhythm, no murmur [] Lungs & Thorax: Bilateral breath sounds clear to auscultation. Patient's equal and nonlabored. No chest wall tenderness or visible injury Abdomen: Bowel sounds normal, soft, no tenderness, no masses, no pulsatile masses. [] Skin: Warm, dry, no erythema, no rash. [] Back: Tender to palpation from mid cervical down to mid lower lumbar-palpable deformity or crepitus, no visible injury, no CVA tenderness. [] Extremities: No tenderness, no cyanosis, no clubbing, ROM intact, no edema. [] Neurologic: Alert and oriented X 3, normal motor function, normal sensory function, no focal deficits noted. [] Psychologic: Affect normal, judgement normal, mood normal. [] Current Patient Data Vital Signs Vital Signs Date Time Temp Pulse Resp B/P (MAP) Pulse Ox O2 Delivery O2 Flow Rate FiO2 07/22/18 16:30 97.8 78 98 97.8 07/22/18 14:08 22 117/72 (87) Room Air EKG EKG [] Radiology/Procedures Radiology/Procedures PROCEDURE: CT HEAD AND CERVICAL SPINE WO PQRS Compliance statement: One or more of the following individualized dose reduction techniques were utilized for this examination: 1. Automated exposure control. 2. Adjustment of the mA and/or kV according to patient size. 3. Use of iterative reconstruction technique. Indication:fall- head/neck/mid to lower back pain
previous TECHNIQUE: CT head, cervical spine, thoracic and lumbar spine without IV contrast COMPARISON: None FINDINGS: CT head: Suboptimal positioning. No acute intracranial bleed. No pathologic extra-axial or intra-axial fluid collection. The ventricles and basal cisterns are within normal limits. No large scalp hematoma. Orbits are within normal limits. No apparent acute calvarial fractures. The paranasal sinuses and mastoid air cells are clear. IMPRESSION: Suboptimal positioning limits optimal evaluation. No apparent acute intracranial process. CT cervical spine: FINDINGS: Status post posterior fusion from C3-C7 with loss of normal cervical lordosis. Atlantoaxial joint interval is preserved with mild degenerative changes. Large anterior bridging osteophytes are seen. No compression deformities. Facet joints are in normal anatomic alignment with multilevel moderate facet arthropathy. Laminectomy changes are seen at multiple levels in the cervical spine. No acute fractures. The noncontrast appearance of the neck soft tissue is within normal limits. IMPRESSION: 1. Postsurgical changes from laminectomy and posterior fusion at C3-C7. No acute fractures. CT thoracic spine: No acute compression deformities seen in the thoracic spine. The facet joints are in normal anatomic alignment. Multilevel large anterior bridging osteophytes are seen. No acute fractures. Multilevel mild to moderate facet arthropathy. Visualized lungs are clear. IMPRESSION: 1. No acute fractures or compression deformities. 2. Diffuse idiopathic skeletal hyperostotic changes. CT lumbar spine: Lumbar spine is in normal anatomic alignment. There are 5 lumbar type vertebral bodies. No compression deformities. Facet joints are in normal anatomic alignment with multilevel advanced lower lumbar spine facet arthropathy. No acute fractures. Mild bilateral SI joint osteoarthritis. Severe neural foramina narrowing seen bilaterally at L4-L5, L5-S1, L3-L4. IMPRESSION: 1. No acute fracture or compression deformity. 2. Multilevel degenerative disc disease with facet arthropathy causing neural foramina narrowing in the lower lumbar spine. Electronically signed by: Choco James DO (07/22/2018 2:55 PM) [facility] DICTATED and SIGNED BY: CHOCO JAMES DO DATE: 07/22/18 2775 Course & Med Decision Making Course & Med Decision Making Pertinent Labs and Imaging studies reviewed. (See chart for details) 1510: Pt was evaluated in the ER following a mechanical fall as she had slipped while getting out of bed this morning. She denied hitting her head but did report she had headache on arrival to ER and was provided with dose of Tylenol. Patient has had no change in mental status remains alert and oriented �3. Full ROM of neck and extremities with no facial grimacing during movements. She remains neuro/vascular intact all extremities. Discussed CT results with no acute findings of head, C-spine, thoracic, and lumbar spine- chronic findings reported along with previous C3-C7 fusion noted with report of "Postsurgical changes from laminectomy and posterior fusion at C3-C7. No acute fractures". Patient was given dose of Tylenol and at this time is in no visible distress. VS have been stable. Discussed discharge as CTs were normal limits and patient states she is not wanting to be discharge back to [facility]. Advised patient she should contact her family so they could come to the ER to pick her up and to assist with her discharge. Patient denies physical abuse at facility she reports she feels people are taking her things and so she is not wanting to go back. She remains neuro and vascular intact in all extremities with full range of motion. Patient is making a phone call to family. Discussed patient will be discharged from ER and as she is a resident at the facility recommended she return to the facility and discuss her concerns with case management there along with having her family present. Patient made multiple phone calls to her family and did discuss her concerns with multiple family members. None of the family members were willing to pick her up so she is agreeable with returning to [facility] facility with plans to discuss her concerns with case management. Staff Physician Addendum: I was working in the ER during the course of this patient's visit. I was available for consultation as needed, but I was not directly involved in the care of this patient. Dragon Disclaimer Dragon Disclaimer This electronic medical record was generated, in whole or in part, using a voice recognition dictation system. Departure Departure Impression: Primary Impression: Neck pain Additional Impressions: Back pain Fall Referrals: ZAIDA VALDEZ MD (PCP) Patient Instructions: Back Pain, Adult, Fall Prevention and Home Safety, Musculoskeletal Pain Additional Instructions: Tylenol as directed on container as needed for pain. Follow-up with primary doctor in 3-5 days for re-evaluation sooner with any concerns. Problem Qualifiers ELMA ARGUETA APRN Jul 22, 2018 14:14 ELEN YANG MD Jul 22, 2018 17:45
[2018-07-22] MEDS ORDERED: ACETAMINOPHEN 325 MG TABLET. PO ONE (14:15)
--- NOTE | 2018-07-22 15:00 | RAD ---
PQRS Compliance statement: One or more of the following individualized dose reduction techniques were utilized for this examination: 1. Automated exposure control. 2. Adjustment of the mA and/or kV according to patient size. 3. Use of iterative reconstruction technique. Indication:fall- head/neck/mid to lower back pain
previous TECHNIQUE: CT head, cervical spine, thoracic and lumbar spine without IV contrast COMPARISON: None FINDINGS: CT head: Suboptimal positioning. No acute intracranial bleed. No pathologic extra-axial or intra-axial fluid collection. The ventricles and basal cisterns are within normal limits. No large scalp hematoma. Orbits are within normal limits. No apparent acute calvarial fractures. The paranasal sinuses and mastoid air cells are clear. IMPRESSION: Suboptimal positioning limits optimal evaluation. No apparent acute intracranial process. CT cervical spine: FINDINGS: Status post posterior fusion from C3-C7 with loss of normal cervical lordosis. Atlantoaxial joint interval is preserved with mild degenerative changes. Large anterior bridging osteophytes are seen. No compression deformities. Facet joints are in normal anatomic alignment with multilevel moderate facet arthropathy. Laminectomy changes are seen at multiple levels in the cervical spine. No acute fractures. The noncontrast appearance of the neck soft tissue is within normal limits. IMPRESSION: 1. Postsurgical changes from laminectomy and posterior fusion at C3-C7. No acute fractures. CT thoracic spine: No acute compression deformities seen in the thoracic spine. The facet joints are in normal anatomic alignment. Multilevel large anterior bridging osteophytes are seen. No acute fractures. Multilevel mild to moderate facet arthropathy. Visualized lungs are clear. IMPRESSION: 1. No acute fractures or compression deformities. 2. Diffuse idiopathic skeletal hyperostotic changes. CT lumbar spine: Lumbar spine is in normal anatomic alignment. There are 5 lumbar type vertebral bodies. No compression deformities. Facet joints are in normal anatomic alignment with multilevel advanced lower lumbar spine facet arthropathy. No acute fractures. Mild bilateral SI joint osteoarthritis. Severe neural foramina narrowing seen bilaterally at L4-L5, L5-S1, L3-L4. IMPRESSION: 1. No acute fracture or compression deformity. 2. Multilevel degenerative disc disease with facet arthropathy causing neural foramina narrowing in the lower lumbar spine. Electronically signed by: Choco James DO (07/22/2018 2:55 PM) [facility]
[2018-07-22 16:30] VITALS: BP 121/72
== END 2018-07-22 17:22 | disposition home or self-care (01) ==
LOC: ER 14:05
DX: G89.11 Acute pain due to trauma (principal); M54.2 Cervicalgia; M54.5 Low back pain; J44.9 Chronic obstructive pulmonary disease, unspecified; E11.9 Type 2 diabetes mellitus without complications; K21.9 Gastro-esophageal reflux disease without esophagitis; E78.00 Pure hypercholesterolemia, unspecified; I10 Essential (primary) hypertension; I25.2 Old myocardial infarction; Z90.710 Acquired absence of both cervix and uterus; Z90.89 Acquired absence of other organs; Z88.2 Allergy status to sulfonamides; Z88.0 Allergy status to penicillin; Z88.8 Allergy status to other drugs, medicaments and biological substances; Z91.040 Latex allergy status; Z91.048 Other nonmedicinal substance allergy status; W06.XXXA Fall from bed, initial encounter; Y93.89 Activity, other specified; Y92.89 Other specified places as the place of occurrence of the external cause; Y99.8 Other external cause status
CPT/HCPCS: 70450; 72125; 72128; 72131; 99284

== ENCOUNTER 2019-05-12 12:36 | Inpatient (IN) | payer OTHER ==
[~2019-05-12] VITALS: Ht 162.6 cm; Wt 122.9 kg
[~2019-05-12 12:36] MED LIST changes: -ALBU2.5V8 IH; -MELA3TAB2 PO; +MELA3TAB56 PO; -OXYB10TA PO; +OXYB10TA2 PO; +PROVENTIL HFA6.7 GM IH
[2019-05-12] MEDS ORDERED: ALBUTEROL SULFATE 2.5 MG/3 ML NEBU. NEB ONE (13:30)
[2019-05-12 13:38] LABS: BILIRUBIN,URINE NEGATIVE (NEG); COLOR,URINE YELLOW; NITRITE,URINE NEGATIVE (NEG); PH,URINE 7.5; PROTEIN,URINE NEGATIVE (NEG-TRACE); UROBILINOGEN,URINE 0.2 mg/dL (0.2 mg/dL)
[2019-05-12 13:58] LABS: CLARITY,URINE HAZY
[2019-05-12 14:00] LABS: BACTERIA,URINE MANY /HPF (0-FEW); RBC,URINE OCC /HPF (0-2); SQUAMOUS EPITHELIAL CELL,UR MANY /LPF
--- NOTE | 2019-05-12 14:27 | RAD ---
Chest AP portable 05/12/2019. Reason for exam: Shortness of air. Comparison is made with a study of 02/04/2017. The right hemidiaphragm is mildly elevated. Evaluation of the retrocardiac left lower lobe is somewhat limited by overlying structures, but no infiltrate is seen and there is no apparent pleural fluid. The heart may be mildly enlarged. Pulmonary vascularity does not appear congested. IMPRESSION: Probable mild cardiomegaly. No acute infiltrate or pulmonary edema. Electronically signed by: Karsten Crawley Jr., MD (05/12/2019 2:24 PM) [facility]
--- NOTE | 2019-05-12 14:36 | PHYS DOC ---
Past Medical History Past Medical History: Anxiety, Asthma, COPD, CVA, Depression, Diabetes-Type II, Diverticulitis, GERD, High Cholesterol, Hypertension, IBS, MS, Schizophrenia Additional Past Medical Histor: CATARCTS, NEUROPATHY, colitis, overactive bladder Past Surgical History: Hysterectomy, Knee Replacement, Tonsillectomy, Other Additional Past Surgical Histo: CARPAL TUNNEL, HERNIA, neck, back, L knee Alcohol Use: None Drug Use: None Adult General Chief Complaint Chief Complaint: URINARY FREQUENCY HPI HPI Patient is a 63 year old female who presents with 1 week of shortness of breath, chills, cough and lower abdominal pain with urinary symptoms. Patient rates her pain a 6 out of 10. Review of Systems Review of Systems Constitutional: fever or chills [] HENT: nasal congestion or denies sore throat [] Respiratory: cough or shortness of breath [] GI: lower abdominal pain, nausea, vomiting, bloody stools or diarrhea [] : dysuria or denies hematuria [] All other systems were reviewed and found to be within normal limits, except as documented in this note. Current Medications Current Medications Current Medications Medications (Trade) Dose Ordered Sig/Charmaine Start Time Stop Time Status Last Admin Dose Admin Albuterol Sulfate (Ventolin Neb Soln) 2.5 mg 1X ONCE 05/12/19 13:30 05/12/19 13:35 DC 05/12/19 13:50 2.5 MG Sodium Chloride 1,000 ml @ 1,000 mls/hr 1X ONCE 05/12/19 15:15 05/12/19 16:14 DC 05/12/19 15:15 1,000 MLS/HR Allergies Allergies Allergies Coded Allergies Type Severity Reaction Last Updated Verified Sulfa (Sulfonamide Antibiotics) Allergy Intermediate UNKNOWN REACTION 02/02/17 Yes adhesive tape Allergy Intermediate RASH 02/01/17 Yes latex Allergy Intermediate LATEX GLOVES CAUSE A RASH 02/01/17 Yes I S O L A T I O N *CONTACT* Allergy Unknown 02/01/17 Yes Penicillins Adverse Reaction Severe DIARRHEA 06/11/15 Yes atorvastatin Adverse Reaction Severe MYALGIA 06/11/15 Yes haloperidol Adverse Reaction Severe "I get stiff as a board" 06/11/15 Yes CLAIRE Inhibitors Adverse Reaction Intermediate BAD COUGH 06/11/15 Yes amoxicillin trihydrate Adverse Reaction Intermediate diarrhea 06/11/15 Yes aspirin Adverse Reaction Intermediate "Black tarry stools" 06/11/15 Yes Physical Exam Physical Exam Constitutional: Well developed, well nourished, no acute distress, non-toxic appearance. [] HENT: Normocephalic, atraumatic, bilateral external ears normal, oropharynx moist, no oral exudates, nose normal. [] Eyes: PERRLA, EOMI, conjunctiva normal, no discharge. [] Neck: Normal range of motion, no tenderness, supple, no stridor. [] Cardiovascular:Heart rate regular rhythm, no murmur [] Lungs & Thorax: Bilateral upper breath sounds clear and lower are diminished to auscultation [] Abdomen: Bowel sounds normal, soft, low mid tenderness, no masses, no pulsatile masses. [] Skin: Warm, dry, no erythema, no rash. [] Back: No tenderness, no CVA tenderness. [] Extremities: No tenderness, no cyanosis, no clubbing, ROM intact, no edema. [] Neurologic: Alert and oriented X 3, normal motor function, normal sensory function, no focal deficits noted. [] Psychologic: Affect normal, judgement normal, mood normal. [] Current Patient Data Vital Signs Vital Signs Date Time Temp Pulse Resp B/P (MAP) Pulse Ox O2 Delivery O2 Flow Rate FiO2 05/12/19 15:30 78 138/45 (76) 95 05/12/19 14:30 Room Air 05/12/19 12:36 97.6 16 97.6 Lab Values Laboratory Tests Test 05/12/19 13:25 05/12/19 14:30 Urine Collection Type Unknown Urine Color Yellow Urine Clarity Hazy Urine pH 7.5 Urine Specific [place] 1.020 Urine Protein Negative mg/dL (NEG-TRACE) Urine Glucose (UA) Negative mg/dL (NEG) Urine Ketones (Stick) Negative mg/dL (NEG) Urine Blood Negative (NEG) Urine Nitrite Negative (NEG) Urine Bilirubin Negative (NEG) Urine Urobilinogen Dipstick 0.2 mg/dL (0.2 mg/dL) Urine Leukocyte Esterase Small (NEG) Urine RBC Occ /HPF (0-2) Urine WBC 1-4 /HPF (0-4) Urine Squamous Epithelial Cells Many /LPF Urine Bacteria Many /HPF (0-FEW) Urine Mucus Mod /LPF White Blood Count 7.4 x10^3/uL (4.0-11.0) Red Blood Count 3.93 x10^6/uL (3.50-5.40) Hemoglobin 12.1 g/dL (12.0-15.5) Hematocrit 36.9 % (36.0-47.0) Mean Corpuscular Volume 94 fL (79-100) Mean Corpuscular Hemoglobin 31 pg (25-35) Mean Corpuscular Hemoglobin Concent 33 g/dL (31-37) Red Cell Distribution Width 13.3 % (11.5-14.5) Platelet Count 187 x10^3/uL (140-400) Neutrophils (%) (Auto) 52 % (31-73) Lymphocytes (%) (Auto) 36 % (24-48) Monocytes (%) (Auto) 10 % (0-9) H Eosinophils (%) (Auto) 1 % (0-3) Basophils (%) (Auto) 1 % (0-3) Neutrophils # (Auto) 3.8 x10^3/uL (1.8-7.7) Lymphocytes # (Auto) 2.7 x10^3/uL (1.0-4.8) Monocytes # (Auto) 0.7 x10^3/uL (0.0-1.1) Eosinophils # (Auto) 0.1 x10^3/uL (0.0-0.7) Basophils # (Auto) 0.1 x10^3/uL (0.0-0.2) Sodium Level 145 mmol/L (136-145) Potassium Level 3.7 mmol/L (3.5-5.1) Chloride Level 108 mmol/L (98-107) H Carbon Dioxide Level 31 mmol/L (21-32) Anion Gap 6 (6-14) Blood Urea Nitrogen 22 mg/dL (7-20) H Creatinine 0.9 mg/dL (0.6-1.0) Estimated GFR (Cockcroft-Gault) 76.5 BUN/Creatinine Ratio 24 (6-20) H Glucose Level 109 mg/dL (70-99) H Calcium Level 9.2 mg/dL (8.5-10.1) Total Bilirubin 0.3 mg/dL (0.2-1.0) Aspartate Amino Transferase (AST) 27 U/L (15-37) Alanine Aminotransferase (ALT) 15 U/L (14-59) Alkaline Phosphatase 92 U/L (46-116) Troponin I Quantitative < 0.017 ng/mL (0.000-0.055) Total Protein 7.5 g/dL (6.4-8.2) Albumin 3.3 g/dL (3.4-5.0) L Albumin/Globulin Ratio 0.8 (1.0-1.7) L Laboratory Tests 05/12/19 14:30 Laboratory Tests 05/12/19 14:30 EKG EKG Sinus Rhythm and no STEMI[] Interpretation Time: [address] Becerra Radiology/Procedures Radiology/Procedures [] Impressions: [facility] [address] [place], [place] [id number] IMAGING REPORT Signed PATIENT: NOREEN GUTIERREZACCOUNT: [id number] : 1955 LOCATION: ER AGE: 63 SEX: F EXAM STATUS: REG ER ORD. PHYSICIAN: PIPPA SORIANO APRN REASON: soa PROCEDURE: PORTABLE CHEST 1V Chest AP portable 05/12/2019. Reason for exam: Shortness of air. Comparison is made with a study of 02/04/2017. The right hemidiaphragm is mildly elevated. Evaluation of the retrocardiac left lower lobe is somewhat limited by overlying structures, but no infiltrate is seen and there is no apparent pleural fluid. The heart may be mildly enlarged. Pulmonary vascularity does not appear congested. IMPRESSION: Probable mild cardiomegaly. No acute infiltrate or pulmonary edema. Electronically signed by: Skye Crawley Jr., MD (05/12/2019 2:24 PM) [facility] DICTATED and SIGNED BY: SKYE CRAWLEY Jr, MD DATE: 05/12/19 1424 [facility] [address] [place] [id number] IMAGING REPORT Signed PATIENT: NOREEN GUTIERREZACCOUNT: [id number] : 1955 LOCATION: ER AGE: 63 SEX: F EXAM STATUS: REG ER ORD. PHYSICIAN: PIPPA SORIANO APRN REASON: left arm tingling, pain. US NOTIFIED PROCEDURE: VENOUS UPPER EXTREMITY LEFT Left upper extremity venous duplex Doppler ultrasound HISTORY: Left arm tingling, discomfort and pain. FINDINGS: No evidence of DVT with patent color Doppler blood flow of the left internal jugular vein and subclavian vein. No evidence of DVT with compressibility, patent color Doppler blood flow and augmentation of blood flow the left axillary vein and brachial veins. No evidence of DVT with patent color Doppler blood flow and augmentation of blood flow of the left radial and ulnar veins. The superficial basilic vein is patent without thrombus. The cephalic vein could not be visualized. IMPRESSION: Negative left upper extremity for DVT. Electronically signed by: Angeline Reyez MD (05/12/2019 3:28 PM) [facility] DICTATED and SIGNED BY: ANGELINE REYEZ MD DATE: 05/12/19 1528 Course & Med Decision Making Course & Med Decision Making Patient states it matos when she urinates. Abdomen then with low mid abdominal tenderness. Lungs in upper lobes are clear bilateral lower lobes diminished. Speaks in full clear sentences. Patient is able to move around and moved herself up in the bed. Patient denies nausea, vomiting, headache, dizziness, syncope, throat pain, ear pain or chest pain. Patient states she has been short of breath and she has asthma and COPD but that healthcare resort does not give her breathing treatments and they treat her badly she does not want to go back. Patient states she is upset that they make her ask for albuterol treatments. Skin pink warm and dry. EKG shows sinus rhythm and no STEMI. Patient also complains of Left upper lateral arm pain and states "it feels like the blood is being cut off." Left slightly more swollen the the right at 1+. Skin pink warm and dry. Radial pulse strong and present. Cap refill < 3. Strong strength in left arm. Denies any numbness. Blood work unremarkable. Patient has a UTI. Patient up and walking with walker and she is steady but breathing hard. She desated to 82% with walking. I have spoken to Dr Reece for admission. Dragon Disclaimer Dragon Disclaimer This electronic medical record was generated, in whole or in part, using a voice recognition dictation system. The HEART Score for CP Pts HEART Score for Chest Pain: HEART Score for Chest Pain Response (Comments) Value History Slighlty/Non-Suspicious 0 ECG Normal 0 Age >45 - < 65 1 Risk Factors >3 Risk Factors or Hx CAD 2 Troponin < Normal Limit 0 Total 3 Risk Factors: Risk Factors: DM, Current or recent (<one month) smoker, HTN, HLP, family history of CAD, obesity. Risk Scores: Score 0 - 3: 2.5% MACE over next 6 weeks - Discharge Home Score 4 - 6: 20.3% MACE over next 6 weeks - Admit for Clinical Observation Score 7 - 10: 72.7% MACE over next 6 weeks - Early Invasive Strategies Departure Departure Impression: Primary Impression: Hypoxemia Disposition: 09 ADMITTED INPATIENT Admitting Physician: KELL Condition: STABLE Referrals: ZAIDA VALDEZ MD (PCP) PIPPA SORIANO APRN May 12, 2019 14:36
[2019-05-12 14:43] LABS: BASO # 0.1 x10^3/uL (0.0-0.2); BASO % 1 % (0-3); EOS # 0.1 x10^3/uL (0.0-0.7); EOS % 1 % (0-3); HEMATOCRIT 36.9 % (36.0-47.0); HEMOGLOBIN 12.1 g/dL (12.0-15.5); LYMPH # 2.7 x10^3/uL (1.0-4.8); LYMPH % 36 % (24-48); MEAN CORPUSCULAR HEMOGLOBIN 31 pg (25-35); MEAN CORPUSCULAR HGB CONC 33 g/dL (31-37); MEAN CORPUSCULAR VOLUME 94 fL (79-100); MONO # 0.7 x10^3/uL (0.0-1.1); MONO % 10 % (0-9); NEUT # 3.8 x10^3/uL (1.8-7.7); NEUT % 52 % (31-73); PLATELET COUNT 187 x10^3/uL (140-400); RED BLOOD COUNT 3.93 x10^6/uL (3.50-5.40); RED CELL DISTRIBUTION WIDTH 13.3 % (11.5-14.5); WHITE BLOOD COUNT 7.4 x10^3/uL (4.0-11.0)
[2019-05-12 14:51] LABS: CALCIUM 9.2 mg/dL (8.5-10.1); CREATININE 0.9 mg/dL (0.6-1.0); GFR 76.5; POTASSIUM 3.7 mmol/L (3.5-5.1)
[2019-05-12 14:57] LABS: ALBUMIN 3.3 g/dL (3.4-5.0); ALBUMIN/GLOBULIN RATIO 0.8 (1.0-1.7); TOTAL BILIRUBIN 0.3 mg/dL (0.2-1.0); TOTAL PROTEIN 7.5 g/dL (6.4-8.2)
[2019-05-12] MEDS ORDERED: IV NORMAL SALINE 1000ML BAG 1,000 ML IV ONE (15:15)
--- NOTE | 2019-05-12 15:31 | RAD ---
Left upper extremity venous duplex Doppler ultrasound HISTORY: Left arm tingling, discomfort and pain. FINDINGS: No evidence of DVT with patent color Doppler blood flow of the left internal jugular vein and subclavian vein. No evidence of DVT with compressibility, patent color Doppler blood flow and augmentation of blood flow the left axillary vein and brachial veins. No evidence of DVT with patent color Doppler blood flow and augmentation of blood flow of the left radial and ulnar veins. The superficial basilic vein is patent without thrombus. The cephalic vein could not be visualized. IMPRESSION: Negative left upper extremity for DVT. Electronically signed by: Bradley Reyez MD (05/12/2019 3:28 PM) [facility]
--- NOTE | 2019-05-12 16:18 | PDOC1 ---
History and Physical Date of Admission Date of Admission DATE: 05/12/19 TIME: 16:14 Identification/Chief Complaint Chief Complaint Shortness of breath Source Source: Patient History of Present Illness History of Present Illness Ms Luke is a 63yo F w/ PMHx Anxiety, Asthma, COPD, Prior CVA, Depression, Diabetes-Type II, Diverticulitis, GERD, High Cholesterol, Hypertension, IBS, CT, Schizophrenia, hypothyroidism, mentally handicapped, neuropathy, and overactive bladder who presents with 1 week of shortness of breath. She also notes lower abdominal pain with dysuria symptoms and left flank pain with associated chills, cough. Patient rates her pain a 6 out of 10. She also notes left upper extremity pain. Had dopper negative for DVT. The patient has history of mobility deficit, using walker. She is a long-term SNF resident at [facility]. She tells me she is trying get out and life independently and work for the [employer] until she retires in a year and a half. In the ED her chest x-ray was unremarkable, however, she went to ambulate with staff and had O2 desaturations to 83% that were persistent, also noted with pos itive LE in urine, otherwise BUN is elevated. Past Medical History Cardiovascular: HTN, CT, Hyperlipidemia Pulmonary: Asthma, COPD CENTRAL NERVOUS SYSTEM: CVA GI: Diverticulosis, GERD, Irritable bowel disease Psych: Schizophrenia Endocrine: Diabetes Past Surgical History Past Surgical History tubal ligation, tonsillectomy, bladder surgery, hysterectomy, C-spine surgery, rotator cuff repair, right wrist carpal tunnel surgery and hernia surgery. Past Surgical History: Hernia Repair, Tubal Ligation, Tonsillectomy, Hysterectomy Family History Family History Mother is , diagnosed with diabetes, hypertension and osteoarthritis and also having a CVA. His father is alive with osteoarthritis and hypertension. She has 2 living brothers, which have had a heart attack and diabetes re spectively in a living sister with diabetes. Family History: Other Family History: Other Social History Smoke: No ALCOHOL: none Drugs: None Current Problem List Problem List Problems Medical Problems: (1) Hypoxemia Status: Acute Current Medications Current Medications Current Medications Albuterol Sulfate (Ventolin Neb Soln) 2.5 mg 1X ONCE NEB Last administered on 05/12/19at 13:50; Start 05/12/19 at 13:30; Stop 05/12/19 at 13:35; Status DC Sodium Chloride 1,000 ml @ 1,000 mls/hr 1X ONCE IV Last administered on 05/12/19at 15:15; Start 05/12/19 at 15:15; Stop 05/12/19 at 16:14 Active Scripts Active Reported Zyprexa (Olanzapine) 5 Mg Tablet 1 Tab PO QHS Zofran Odt (Ondansetron) 4 Mg Tab.rapdis 1 Tab SL PRN Q6HRS PRN Vitamin D3 (Cholecalciferol (Vitamin D3)) 5,000 Unit Tablet 1 Tab PO WEEKLY Tylenol Extra Strength (Acetaminophen) 500 Mg Tablet 1,000 Mg PO PRN Q6HRS PRN Levothyroxine Sodium 150 Mcg Tablet 1 Tab PO DAILY Requip (Ropinirole Hcl) 1 Mg Tablet 1 Tab PO QHS Risperidone 0.5 Mg Tablet 1.75 Mg PO HS Psyllium (Psyllium Husk) 0.4 Gm Capsule 0.4 Gm PO DAILY Protonix (Pantoprazole Sodium) 20 Mg Tablet.dr 40 Mg PO DAILY Multiple Vitamin (Multivitamin With Minerals) 1 Each Tablet 1 Each PO DAILY Miralax (Polyethylene Glycol 3350) 17 Gm Powd.pack 1 Packet PO PRN DAILY PRN Milk Of Magnesia (Magnesium Hydroxide) 400 Mg/5 Ml Oral.susp 400 Mg PO PRN DAILY PRN Lialda (Mesalamine) 1.2 Gm Tablet.dr 800 Mg PO Meloxicam 15 Mg Tablet 1 Tab PO DAILY Melatonin 3 Mg Tablet 1 Tab PO QHS Maalox Maximum Strength Susp (Mag Hydrox/Al Hydrox/Simeth) 355 Ml Oral.susp 15 Ml PO PRN Q4HRS PRN Latanoprost 2.5 Ml Drops 1 Drop OP HS Hydrochlorothiazide Tablet (Hydrochlorothiazide) 12.5 Mg Tablet 25 Mg PO DAILY Gabapentin 100 Mg Capsule 100 Mg PO TID Flonase Allergy Relief (Fluticasone Propionate) 9.9 Ml [place].susp 2 Sprays NS DAILY Fleet Enema (Na Phos,M-B/Na Phos,Di-Ba) 133 Ml Enema 133 Ml RC PRN DAILY PRN Duoneb 0.5-3(2.5) Mg/3 Ml (Albuterol/Ipratropium) 3 Ml Ampul.neb 3 Ml NEB PRN Q4HRS PRN Dulcolax (Bisacodyl) 10 Mg Supp.rect 10 Mg RC PRN DAILY PRN Docusate Sodium 100 Mg Capsule 1 Cap PO DAILY Detrol La (Tolterodine Tartrate) 2 Mg Cap.er.24h 1 Cap PO DAILY Depakote Er (Divalproex Sodium) 250 Mg Tab.er.24h 750 Mg PO DAILY Cymbalta (Duloxetine Hcl) 30 Mg Capsule.dr 1 Cap PO DAILY Combivent Respimat Inhal (Ipratropium/Albuterol Sulfate) 4 Gm Aer.w.adap 2 Inh IH Q4HRS Carvedilol 3.125 Mg Tablet 1 Tab PO BID Bengay (Menthol) 113 Gm Gel..gram. 113 Gm TP PRN Q6HRS PRN Allergies Allergies: Coded Allergies: Sulfa (Sulfonamide Antibiotics) (Verified Allergy, Intermediate, UNKNOWN REACTION, 02/02/17) adhesive tape (Verified Allergy, Intermediate, RASH, 02/01/17) latex (Verified Allergy, Intermediate, LATEX GLOVES CAUSE A RASH, 02/01/17) I S O L A T I O N *CONTACT* (Verified Allergy, Unknown, 02/01/17) mrsa Penicillins (Verified Adverse Reaction, Severe, DIARRHEA, 06/11/15) atorvastatin (Verified Adverse Reaction, Severe, MYALGIA, 06/11/15) haloperidol (Verified Adverse Reaction, Severe, "I get stiff as a board", 06/11/15) CLAIRE Inhibitors (Verified Adverse Reaction, Intermediate, BAD COUGH, 06/11/15) amoxicillin trihydrate (Verified Adverse Reaction, Intermediate, diarrhea, 06/11/15) aspirin (Verified Adverse Reaction, Intermediate, "Black tarry stools", 06/11/15) ROS General: YES: Fatigue, Malaise; No: Chills, Night Sweats, Appetite, Other PSYCHOLOGICAL ROS: No: Anxiety, Behavioral Disorder, Concentration difficultie, Decreased libido, Depression, Disorientation, Hallucinations, Hostility, Irritablity, Memory difficulties, Mood Swings, Obsessive thoughts, Physical abuse, Sexual abuse, Sleep disturbances, Suicidal ideation, Other Eyes: No Blurry vision, No Decreased vision, No Double vision, No Dry eyes, No Excessive tearing, No Eye Pain, No Itchy Eyes, No Loss of vision, No Photophobia, No Scotomata, No Uses contacts, No Uses glasses, No Other HEENT: No: Heacaches, Visual Changes, Hearing change, Nasal congestion, Nasal discharge, Oral lesions, Sinus pain, Sore Throat, Epistaxis, Sneezing, Snoring, Tinnitus, Vertigo, Vocal changes, Other ALLERGY AND IMMUNOLOGY: No: Hives, Insect Bite Sensitivity, Itchy/Watery Eyes, Nasal Congestion, Post Nasal Drip, Seasonal Allergies, Other Hematological and Lymphatic: No: Bleeding Problems, Blood Clots, Blood Transfusions, Brusing, Night Sweats, Pallor, Swollen Lymph Nodes, Other ENDOCRINE: No: Breast Changes, Galactorrhea, Hair Pattern Changes, Hot Flashes, Malaise/lethargy, Mood Swings, Palpitations, Polydipsia/polyuria, Skin Changes, Temperature Intolerance, Unexpected Weight Changes, Other Breast: No New/Changing Breast Lumps, No Nipple changes, No Nipple discharge, No Other Respiratory: YES: Cough, Shortness of breath, SOB with excertion, Tachypnea, Wheezing; No: Hemoptysis, Orthopnea, Pleuritic Pain, Sputum Changes, Stridor, Other Cardiovascular: No Chest Pain, No Palpitations, No Orthopnea, No Paroxysmal Noc. Dyspnea, No Edema, No Lt Headedness, No Other Gastrointestinal: Yes Nausea, Yes Abdominal Pain; No Vomiting, No Diarrhea, No Constipation, No Melena, No Hematochezia, No Other Genitourinary: YES Dysuria, YES Frequency, YES Incontinence, YES Retention, YES Urgency, YES Pain, YES Flank Pain; No Hematuria, No Discharge, No Other, No , No , No , No , No , No , No Musculoskeletal: No Gait Disturbance, No Joint Pain, No Joint Stiffness, No Joint Swelling, No Muscle Pain, No Muscular Weakness, No Pain In:, No Swelling In:, No Other Neurological: No Behavorial Changes, No Bowel/Bladder ControlChng, No Confusion, No Dizziness, No Gait Disturbance, No Headaches, No Impaired Coor d/balance, No Memory Loss, No Numbness/Tingling, No Seizures, No Speech Problems, No Tremors, No Visual Changes, No Weakness, No Other Skin: No Dry Skin, No Eczema, No Hair Changes, No Lumps, No Mole Changes, No Mottling, No Nail Changes, No Pruritus, No Rash, No Skin Lesion Changes, No Other, No Acne Physical Exam General: Alert, Oriented X3, Cooperative, No acute distress HEENT: Atraumatic, PERRLA, EOMI, Mucous membr. moist/pink Lungs: Other (Scattered wheezing) Heart: S1S2, RRR, no thrills, no rubs, no gallops, no murmurs Abdomen: Normal bowel sounds, Soft, No hepatosplenomegaly, No masses, Other (LLQ tender, left flank tender) Rectal Exam: not examined Extremities: No clubbing, No cyanosis, No edema, Normal pulses, No tenderness/swelling Skin: No rashes, No breakdown, No significant lesion Neuro: Normal gait, Normal speech, Strength at 5/5 X4 ext, Normal tone, Sensation intact, Cranial nerves 3-12 NL, Reflexes 2+ Psych/Mental Status: Mental status NL, Mood NL Vitals Vitals Vital Signs Date Time Temp Pulse Resp B/P (MAP) Pulse Ox O2 Delivery O2 Flow Rate FiO2 05/12/19 15:30 78 138/45 (76) 95 05/12/19 14:30 Room Air 05/12/19 12:36 97.6 16 97.6 Labs Labs Laboratory Tests Test 05/12/19 13:25 05/12/19 14:30 Urine Collection Type Unknown Urine Color Yellow Urine Clarity Hazy Urine pH 7.5 Urine Specific [place] 1.020 Urine Protein Negative mg/dL (NEG-TRACE) Urine Glucose (UA) Negative mg/dL (NEG) Urine Ketones (Stick) Negative mg/dL (NEG) Urine Blood Negative (NEG) Urine Nitrite Negative (NEG) Urine Bilirubin Negative (NEG) Urine Urobilinogen Dipstick 0.2 mg/dL (0.2 mg/dL) Urine Leukocyte Esterase Small (NEG) Urine RBC Occ /HPF (0-2) Urine WBC 1-4 /HPF (0-4) Urine Squamous Epithelial Cells Many /LPF Urine Bacteria Many /HPF (0-FEW) Urine Mucus Mod /LPF White Blood Count 7.4 x10^3/uL (4.0-11.0) Red Blood Count 3.93 x10^6/uL (3.50-5.40) Hemoglobin 12.1 g/dL (12.0-15.5) Hematocrit 36.9 % (36.0-47.0) Mean Corpuscular Volume 94 fL (79-100) Mean Corpuscular Hemoglobin 31 pg (25-35) Mean Corpuscular Hemoglobin Concent 33 g/dL (31-37) Red Cell Distribution Width 13.3 % (11.5-14.5) Platelet Count 187 x10^3/uL (140-400) Neutrophils (%) (Auto) 52 % (31-73) Lymphocytes (%) (Auto) 36 % (24-48) Monocytes (%) (Auto) 10 % (0-9) Eosinophils (%) (Auto) 1 % (0-3) Basophils (%) (Auto) 1 % (0-3) Neutrophils # (Auto) 3.8 x10^3/uL (1.8-7.7) Lymphocytes # (Auto) 2.7 x10^3/uL (1.0-4.8) Monocytes # (Auto) 0.7 x10^3/uL (0.0-1.1) Eosinophils # (Auto) 0.1 x10^3/uL (0.0-0.7) Basophils # (Auto) 0.1 x10^3/uL (0.0-0.2) Sodium Level 145 mmol/L (136-145) Potassium Level 3.7 mmol/L (3.5-5.1) Chloride Level 108 mmol/L (98-107) Carbon Dioxide Level 31 mmol/L (21-32) Anion Gap 6 (6-14) Blood Urea Nitrogen 22 mg/dL (7-20) Creatinine 0.9 mg/dL (0.6-1.0) Estimated GFR (Cockcroft-Gault) 76.5 BUN/Creatinine Ratio 24 (6-20) Glucose Level 109 mg/dL (70-99) Calcium Level 9.2 mg/dL (8.5-10.1) Total Bilirubin 0.3 mg/dL (0.2-1.0) Aspartate Amino Transf (AST/SGOT) 27 U/L (15-37) Alanine Aminotransferase (ALT/SGPT) 15 U/L (14-59) Alkaline Phosphatase 92 U/L (46-116) Troponin I Quantitative < 0.017 ng/mL (0.000-0.055) Total Protein 7.5 g/dL (6.4-8.2) Albumin 3.3 g/dL (3.4-5.0) Albumin/Globulin Ratio 0.8 (1.0-1.7) Laboratory Tests Test 05/12/19 13:25 05/12/19 14:30 Urine Collection Type Unknown Urine Color Yellow Urine Clarity Hazy Urine pH 7.5 Urine Specific [place] 1.020 Urine Protein Negative mg/dL (NEG-TRACE) Urine Glucose (UA) Negative mg/dL (NEG) Urine Ketones (Stick) Negative mg/dL (NEG) Urine Blood Negative (NEG) Urine Nitrite Negative (NEG) Urine Bilirubin Negative (NEG) Urine Urobilinogen Dipstick 0.2 mg/dL (0.2 mg/dL) Urine Leukocyte Esterase Small (NEG) Urine RBC Occ /HPF (0-2) Urine WBC 1-4 /HPF (0-4) Urine Squamous Epithelial Cells Many /LPF Urine Bacteria Many /HPF (0-FEW) Urine Mucus Mod /LPF White Blood Count 7.4 x10^3/uL (4.0-11.0) Red Blood Count 3.93 x10^6/uL (3.50-5.40) Hemoglobin 12.1 g/dL (12.0-15.5) Hematocrit 36.9 % (36.0-47.0) Mean Corpuscular Volume 94 fL (79-100) Mean Corpuscular Hemoglobin 31 pg (25-35) Mean Corpuscular Hemoglobin Concent 33 g/dL (31-37) Red Cell Distribution Width 13.3 % (11.5-14.5) Platelet Count 187 x10^3/uL (140-400) Neutrophils (%) (Auto) 52 % (31-73) Lymphocytes (%) (Auto) 36 % (24-48) Monocytes (%) (Auto) 10 % (0-9) Eosinophils (%) (Auto) 1 % (0-3) Basophils (%) (Auto) 1 % (0-3) Neutrophils # (Auto) 3.8 x10^3/uL (1.8-7.7) Lymphocytes # (Auto) 2.7 x10^3/uL (1.0-4.8) Monocytes # (Auto) 0.7 x10^3/uL (0.0-1.1) Eosinophils # (Auto) 0.1 x10^3/uL (0.0-0.7) Basophils # (Auto) 0.1 x10^3/uL (0.0-0.2) Sodium Level 145 mmol/L (136-145) Potassium Level 3.7 mmol/L (3.5-5.1) Chloride Level 108 mmol/L (98-107) Carbon Dioxide Level 31 mmol/L (21-32) Anion Gap 6 (6-14) Blood Urea Nitrogen 22 mg/dL (7-20) Creatinine 0.9 mg/dL (0.6-1.0) Estimated GFR (Cockcroft-Gault) 76.5 BUN/Creatinine Ratio 24 (6-20) Glucose Level 109 mg/dL (70-99) Calcium Level 9.2 mg/dL (8.5-10.1) Total Bilirubin 0.3 mg/dL (0.2-1.0) Aspartate Amino Transf (AST/SGOT) 27 U/L (15-37) Alanine Aminotransferase (ALT/SGPT) 15 U/L (14-59) Alkaline Phosphatase 92 U/L (46-116) Troponin I Quantitative < 0.017 ng/mL (0.000-0.055) Total Protein 7.5 g/dL (6.4-8.2) Albumin 3.3 g/dL (3.4-5.0) Albumin/Globulin Ratio 0.8 (1.0-1.7) VTE Prophylaxis Ordered VTE Prophylaxis Devices: Yes VTE Pharmacological Prophylaxi: Yes Assessment/Plan Assessment/Plan A/P: Acute hypoxia - only on exertion. Concern for pulmonary hypertension or interstitial pulmonary disease not seen on CXR. Will consult pulm. High res CT is indicated as well as screening echo for valvular disorder or pulm HTN Dysuria - given cipro empirically in ED, will f/u urine culture. Has PCN allergy, but no known allergy to cephalosporins, will give rocephin Anxiety with Depression - on meds Asthma with COPD - unknown baseline spirometry, will give nebs Prior CVA - no noticeable residual deficits Diabetes-Type II - will place on basal bolus plus regimen GERD - on PPI High Cholesterol - cont statin Hypertension - cont meds IBS - on lialda CAD - with prior CT, will trend troponins given her left arm pain Schizophrenia - cont home meds Hypothyroidism - cont meds Mentally handicapped - her brother is her guardian Neuropathy - diabetic, on gabapentin Overactive bladder - will cont detrol. FEN - ADA diet PPX - Lovenox FULL CODE Dispo - inpatient for hypoxia, new onset RIFFEL,ARABELLA Vergara MD May 12, 2019 16:18
[2019-05-12] MEDS ORDERED: CIPROFLOXACIN 400MG PREMIX 200 ML IV ONE (16:30)
[2019-05-12] MEDS ORDERED: fentaNYL PF VIAL 100 MCG/2 ML VIAL IV PRN (16:30)
[2019-05-12] MEDS ORDERED: ACETAMINOPHEN 325 MG TABLET. PO PRN (16:30)
[2019-05-12] MEDS ORDERED: ONDANSETRON PF 4 MG/2 ML VIAL. IV PRN (16:30)
[2019-05-12 17:00] VITALS: BP 144/72
[2019-05-12] MEDS ORDERED: MAG HYDROX/ALUMINUM HYD/SIMETH 30 ML ORAL.SUSP PO PRN (17:00)
[2019-05-12] MEDS ORDERED: BISACODYL 10 MG SUPP.RECT. RC PRN (17:00)
[2019-05-12] MEDS ORDERED: ACETAMINOPHEN 500 MG TABLET PO PRN (17:00)
[2019-05-12] MEDS ORDERED: POLYETHYLENE GLYCOL 3350 17 GM PACKET. PO PRN (17:00)
[2019-05-12] MEDS ORDERED: ONDANSETRON ODT 4 MG TAB.RAPDIS. PO PRN (17:00)
[2019-05-12] MEDS ORDERED: MAGNESIUM HYDROXIDE 2,400 MG/30 ML ORAL.SUSP. PO PRN (17:00)
[2019-05-12] MEDS ORDERED: ALBUTEROL SULFATE 2.5 MG/3 ML NEBU. NEB PRN (17:15)
--- NOTE | 2019-05-12 18:12 | RAD ---
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 Comparisons: CT 10/29/2017 FINDINGS: Right kidney measures 10.7 cm in length. No hydronephrosis. Left kidney measures 11.5 cm in length. No hydronephrosis. Visualized portions of the aorta are unremarkable. Bladder is distended and appears thin-walled. IMPRESSION: No hydronephrosis. Electronically signed by: Noe Justice MD (05/12/2019 6:09 PM) [id number]
[2019-05-12 19:00] VITALS: BP 140/80
[2019-05-12 20:10] VITALS: BP 140/80
[2019-05-12] MEDS ORDERED: rOPINIRole 1 MG TABLET. PO SCH (21:00)
[2019-05-12] MEDS ORDERED: NON FORMULARY ITEM (Melatonin 1 TAB) PO SCH (21:00)
[2019-05-12] MEDS ORDERED: risperiDONE 1 MG TABLET. PO SCH (21:00)
[2019-05-12] MEDS ORDERED: OLANZapine 5 MG TABLET PO SCH (21:00)
--- NOTE | 2019-05-12 21:59 | NUR ---
Call placed to [facility] at 2014 for pt's med list. Returned call to [facility] at [phone] since list not received. RN stated she would fax it. Still awaiting fax.
[2019-05-12] MEDS: ENOXAPARIN 40 MG/0.4 ML SYRINGE. SQ SCH (22:15)
[2019-05-12 23:00] VITALS: BP 128/97
[2019-05-13] MEDS: GABAPENTIN 100 MG CAPSULE. PO SCH ×4 (00:01→20:42)
[2019-05-13] MEDS: OXYBUTYNIN CHLORIDE 5 MG TABLET PO SCH ×2 (00:01→08:25)
--- NOTE | 2019-05-13 00:09 | NUR ---
HS meds non-administered since med rec not completed. Another call placed to [facility] re: meds but RN not available; message left.
[2019-05-13] MEDS ORDERED: AMLO10TA8 PO (01:47)
[2019-05-13] MEDS ORDERED: OXYB5TAB10 PO (01:59)
[2019-05-13] MEDS ORDERED: FURO20TA3 PO (01:59)
[2019-05-13] MEDS ORDERED: FLUP5TAB PO (01:59)
[2019-05-13] MEDS ORDERED: LORA10TA3 PO (01:59)
[2019-05-13 03:22] VITALS: BP 119/62
[2019-05-13 04:30] LABS: CALCIUM 8.4 mg/dL (8.5-10.1); GFR 67.8; POTASSIUM 3.7 mmol/L (3.5-5.1)
[2019-05-13] MEDS: LEVOTHYROXINE 100 MCG TABLET PO SCH (05:56)
[2019-05-13] MEDS ORDERED: LEVOTHYROXINE 150 MCG TABLET PO SCH (07:00)
[2019-05-13 07:59] VITALS: BP 132/85
[2019-05-13] MEDS: CARVEDILOL 3.125 MG TABLET. PO SCH ×2 (08:00)
[2019-05-13] MEDS: MESALAMINE 400 MG CAP.DRTAB. PO SCH ×2 (08:23)
--- NOTE | 2019-05-13 08:54 | EKG ---
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
[2019-05-13] MEDS ORDERED: risperiDONE 0.25 MG TABLET. PO PRN (09:00)
[2019-05-13] MEDS ORDERED: rOPINIRole 1 MG TABLET. PO PRN (09:00)
[2019-05-13] MEDS ORDERED: risperiDONE 1 MG TABLET. PO PRN (09:00)
[2019-05-13] MEDS: FLUPHENAZINE HCL 2.5 MG TABLET. PO SCH ×2 (09:00→20:48)
[2019-05-13] MEDS ORDERED: cefTRIAXone IV Push 1 GM VIAL. IVP SCH (09:00)
[2019-05-13] MEDS ORDERED: PSYLLIUM HUSK (SUGAR FREE) 1 PKT PACKET PO SCH (09:00)
--- NOTE | 2019-05-13 09:13 | PDOC ---
PROGRESS NOTES Chief Complaint Chief Complaint hypoxia on exertion. eval for pulmonary hypertension or interstitial pulmonary disease n Dysuria - rocephin Anxiety with Depression - w./ Schizophrenia - cont home meds Prior CVA - no noticeable residual deficits Diabetes-Type II - will place on basal bolus plus regimen GERD - on PPI High Cholesterol - cont statin Hypertension - cont meds IBS - on lialda CAD - with prior AL, will trend troponins given her left arm pain Hypothyroidism - cont meds Mentally handicapped - her brother is her guardian Neuropathy - diabetic, on gabapentin Overactive bladder - will cont detrol. History of Present Illness History of Present Illness feels better still weak needs PT and OT echo pending [facility], "they had attitude with me" Vitals Vitals Vital Signs Date Time Temp Pulse Resp B/P (MAP) Pulse Ox O2 Delivery O2 Flow Rate FiO2 05/13/19 07:59 98.6 61 20 132/85 (101) 97 Room Air 98.6 Physical Exam Physical Exam odd affect and demeanor, oriented 09/09 General: Alert, Oriented X3, Cooperative, No acute distress Heart: Regular rate, No murmurs Lungs: Clear, Other Abdomen: Normal bowel sounds, Soft, No hepatosplenomegaly, No masses, Other (LLQ tender, left flank tender) Extremities: No clubbing, No cyanosis, No edema, Normal pulses, No tenderness/swelling Skin: No rashes, No breakdown, No significant lesion Labs LABS Laboratory Tests Test 05/12/19 13:25 05/12/19 14:30 05/12/19 21:12 05/13/19 03:35 Urine Collection Type Unknown Urine Color Yellow Urine Clarity Hazy Urine pH 7.5 Urine Specific [place] 1.020 Urine Protein Negative mg/dL (NEG-TRACE) Urine Glucose (UA) Negative mg/dL (NEG) Urine Ketones (Stick) Negative mg/dL (NEG) Urine Blood Negative (NEG) Urine Nitrite Negative (NEG) Urine Bilirubin Negative (NEG) Urine Urobilinogen Dipstick 0.2 mg/dL (0.2 mg/dL) Urine Leukocyte Esterase Small (NEG) Urine RBC Occ /HPF (0-2) Urine WBC 1-4 /HPF (0-4) Urine Squamous Epithelial Cells Many /LPF Urine Bacteria Many /HPF (0-FEW) Urine Mucus Mod /LPF White Blood Count 7.4 x10^3/uL (4.0-11.0) Red Blood Count 3.93 x10^6/uL (3.50-5.40) Hemoglobin 12.1 g/dL (12.0-15.5) Hematocrit 36.9 % (36.0-47.0) Mean Corpuscular Volume 94 fL (79-100) Mean Corpuscular Hemoglobin 31 pg (25-35) Mean Corpuscular Hemoglobin Concent 33 g/dL (31-37) Red Cell Distribution Width 13.3 % (11.5-14.5) Platelet Count 187 x10^3/uL (140-400) Neutrophils (%) (Auto) 52 % (31-73) Lymphocytes (%) (Auto) 36 % (24-48) Monocytes (%) (Auto) 10 % (0-9) Eosinophils (%) (Auto) 1 % (0-3) Basophils (%) (Auto) 1 % (0-3) Neutrophils # (Auto) 3.8 x10^3/uL (1.8-7.7) Lymphocytes # (Auto) 2.7 x10^3/uL (1.0-4.8) Monocytes # (Auto) 0.7 x10^3/uL (0.0-1.1) Eosinophils # (Auto) 0.1 x10^3/uL (0.0-0.7) Basophils # (Auto) 0.1 x10^3/uL (0.0-0.2) Sodium Level 145 mmol/L (136-145) 148 mmol/L (136-145) Potassium Level 3.7 mmol/L (3.5-5.1) 3.7 mmol/L (3.5-5.1) Chloride Level 108 mmol/L (98-107) 109 mmol/L (98-107) Carbon Dioxide Level 31 mmol/L (21-32) 31 mmol/L (21-32) Anion Gap 6 (6-14) 8 (6-14) Blood Urea Nitrogen 22 mg/dL (7-20) 24 mg/dL (7-20) Creatinine 0.9 mg/dL (0.6-1.0) 1.0 mg/dL (0.6-1.0) Estimated GFR (Cockcroft-Gault) 76.5 67.8 BUN/Creatinine Ratio 24 (6-20) Glucose Level 109 mg/dL (70-99) 117 mg/dL (70-99) Calcium Level 9.2 mg/dL (8.5-10.1) 8.4 mg/dL (8.5-10.1) Magnesium Level 2.0 mg/dL (1.8-2.4) Total Bilirubin 0.3 mg/dL (0.2-1.0) Aspartate Amino Transf (AST/SGOT) 27 U/L (15-37) Alanine Aminotransferase (ALT/SGPT) 15 U/L (14-59) Alkaline Phosphatase 92 U/L (46-116) Troponin I Quantitative < 0.017 ng/mL (0.000-0.055) < 0.017 ng/mL (0.000-0.055) Total Protein 7.5 g/dL (6.4-8.2) Albumin 3.3 g/dL (3.4-5.0) Albumin/Globulin Ratio 0.8 (1.0-1.7) Glucose (Fingerstick) 138 mg/dL (70-99) Test 05/13/19 07:47 Glucose (Fingerstick) 97 mg/dL (70-99) Assessment and Plan Assessmemt and Plan Problems Medical Problems: (1) Hypoxemia Status: Acute Comment Review of Relevant I have reviewed the following items kay (where applicable) has been applied. Labs Laboratory Tests Test 05/12/19 13:25 05/12/19 14:30 05/12/19 21:12 05/13/19 03:35 Urine Collection Type Unknown Urine Color Yellow Urine Clarity Hazy Urine pH 7.5 Urine Specific [place] 1.020 Urine Protein Negative mg/dL (NEG-TRACE) Urine Glucose (UA) Negative mg/dL (NEG) Urine Ketones (Stick) Negative mg/dL (NEG) Urine Blood Negative (NEG) Urine Nitrite Negative (NEG) Urine Bilirubin Negative (NEG) Urine Urobilinogen Dipstick 0.2 mg/dL (0.2 mg/dL) Urine Leukocyte Esterase Small (NEG) Urine RBC Occ /HPF (0-2) Urine WBC 1-4 /HPF (0-4) Urine Squamous Epithelial Cells Many /LPF Urine Bacteria Many /HPF (0-FEW) Urine Mucus Mod /LPF White Blood Count 7.4 x10^3/uL (4.0-11.0) Red Blood Count 3.93 x10^6/uL (3.50-5.40) Hemoglobin 12.1 g/dL (12.0-15.5) Hematocrit 36.9 % (36.0-47.0) Mean Corpuscular Volume 94 fL (79-100) Mean Corpuscular Hemoglobin 31 pg (25-35) Mean Corpuscular Hemoglobin Concent 33 g/dL (31-37) Red Cell Distribution Width 13.3 % (11.5-14.5) Platelet Count 187 x10^3/uL (140-400) Neutrophils (%) (Auto) 52 % (31-73) Lymphocytes (%) (Auto) 36 % (24-48) Monocytes (%) (Auto) 10 % (0-9) Eosinophils (%) (Auto) 1 % (0-3) Basophils (%) (Auto) 1 % (0-3) Neutrophils # (Auto) 3.8 x10^3/uL (1.8-7.7) Lymphocytes # (Auto) 2.7 x10^3/uL (1.0-4.8) Monocytes # (Auto) 0.7 x10^3/uL (0.0-1.1) Eosinophils # (Auto) 0.1 x10^3/uL (0.0-0.7) Basophils # (Auto) 0.1 x10^3/uL (0.0-0.2) Sodium Level 145 mmol/L (136-145) 148 mmol/L (136-145) Potassium Level 3.7 mmol/L (3.5-5.1) 3.7 mmol/L (3.5-5.1) Chloride Level 108 mmol/L (98-107) 109 mmol/L (98-107) Carbon Dioxide Level 31 mmol/L (21-32) 31 mmol/L (21-32) Anion Gap 6 (6-14) 8 (6-14) Blood Urea Nitrogen 22 mg/dL (7-20) 24 mg/dL (7-20) Creatinine 0.9 mg/dL (0.6-1.0) 1.0 mg/dL (0.6-1.0) Estimated GFR (Cockcroft-Gault) 76.5 67.8 BUN/Creatinine Ratio 24 (6-20) Glucose Level 109 mg/dL (70-99) 117 mg/dL (70-99) Calcium Level 9.2 mg/dL (8.5-10.1) 8.4 mg/dL (8.5-10.1) Magnesium Level 2.0 mg/dL (1.8-2.4) Total Bilirubin 0.3 mg/dL (0.2-1.0) Aspartate Amino Transf (AST/SGOT) 27 U/L (15-37) Alanine Aminotransferase (ALT/SGPT) 15 U/L (14-59) Alkaline Phosphatase 92 U/L (46-116) Troponin I Quantitative < 0.017 ng/mL (0.000-0.055) < 0.017 ng/mL (0.000-0.055) Total Protein 7.5 g/dL (6.4-8.2) Albumin 3.3 g/dL (3.4-5.0) Albumin/Globulin Ratio 0.8 (1.0-1.7) Glucose (Fingerstick) 138 mg/dL (70-99) Test 05/13/19 07:47 Glucose (Fingerstick) 97 mg/dL (70-99) Laboratory Tests Test 05/12/19 13:25 05/12/19 14:30 05/12/19 21:12 05/13/19 03:35 Urine Collection Type Unknown Urine Color Yellow Urine Clarity Hazy Urine pH 7.5 Urine Specific [place] 1.020 Urine Protein Negative mg/dL (NEG-TRACE) Urine Glucose (UA) Negative mg/dL (NEG) Urine Ketones (Stick) Negative mg/dL (NEG) Urine Blood Negative (NEG) Urine Nitrite Negative (NEG) Urine Bilirubin Negative (NEG) Urine Urobilinogen Dipstick 0.2 mg/dL (0.2 mg/dL) Urine Leukocyte Esterase Small (NEG) Urine RBC Occ /HPF (0-2) Urine WBC 1-4 /HPF (0-4) Urine Squamous Epithelial Cells Many /LPF Urine Bacteria Many /HPF (0-FEW) Urine Mucus Mod /LPF White Blood Count 7.4 x10^3/uL (4.0-11.0) Red Blood Count 3.93 x10^6/uL (3.50-5.40) Hemoglobin 12.1 g/dL (12.0-15.5) Hematocrit 36.9 % (36.0-47.0) Mean Corpuscular Volume 94 fL (79-100) Mean Corpuscular Hemoglobin 31 pg (25-35) Mean Corpuscular Hemoglobin Concent 33 g/dL (31-37) Red Cell Distribution Width 13.3 % (11.5-14.5) Platelet Count 187 x10^3/uL (140-400) Neutrophils (%) (Auto) 52 % (31-73) Lymphocytes (%) (Auto) 36 % (24-48) Monocytes (%) (Auto) 10 % (0-9) Eosinophils (%) (Auto) 1 % (0-3) Basophils (%) (Auto) 1 % (0-3) Neutrophils # (Auto) 3.8 x10^3/uL (1.8-7.7) Lymphocytes # (Auto) 2.7 x10^3/uL (1.0-4.8) Monocytes # (Auto) 0.7 x10^3/uL (0.0-1.1) Eosinophils # (Auto) 0.1 x10^3/uL (0.0-0.7) Basophils # (Auto) 0.1 x10^3/uL (0.0-0.2) Sodium Level 145 mmol/L (136-145) 148 mmol/L (136-145) Potassium Level 3.7 mmol/L (3.5-5.1) 3.7 mmol/L (3.5-5.1) Chloride Level 108 mmol/L (98-107) 109 mmol/L (98-107) Carbon Dioxide Level 31 mmol/L (21-32) 31 mmol/L (21-32) Anion Gap 6 (6-14) 8 (6-14) Blood Urea Nitrogen 22 mg/dL (7-20) 24 mg/dL (7-20) Creatinine 0.9 mg/dL (0.6-1.0) 1.0 mg/dL (0.6-1.0) Estimated GFR (Cockcroft-Gault) 76.5 67.8 BUN/Creatinine Ratio 24 (6-20) Glucose Level 109 mg/dL (70-99) 117 mg/dL (70-99) Calcium Level 9.2 mg/dL (8.5-10.1) 8.4 mg/dL (8.5-10.1) Magnesium Level 2.0 mg/dL (1.8-2.4) Total Bilirubin 0.3 mg/dL (0.2-1.0) Aspartate Amino Transf (AST/SGOT) 27 U/L (15-37) Alanine Aminotransferase (ALT/SGPT) 15 U/L (14-59) Alkaline Phosphatase 92 U/L (46-116) Troponin I Quantitative < 0.017 ng/mL (0.000-0.055) < 0.017 ng/mL (0.000-0.055) Total Protein 7.5 g/dL (6.4-8.2) Albumin 3.3 g/dL (3.4-5.0) Albumin/Globulin Ratio 0.8 (1.0-1.7) Glucose (Fingerstick) 138 mg/dL (70-99) Test 05/13/19 07:47 Glucose (Fingerstick) 97 mg/dL (70-99) Medications Current Medications Albuterol Sulfate (Ventolin Neb Soln) 2.5 mg 1X ONCE NEB Last administered on 05/12/19at 13:50; Start 05/12/19 at 13:30; Stop 05/12/19 at 13:35; Status DC Sodium Chloride 1,000 ml @ 1,000 mls/hr 1X ONCE IV Last administered on 05/12/19at 15:15; Start 05/12/19 at 15:15; Stop 05/12/19 at 16:14; Status DC Ciprofloxacin/ Dextrose 200 ml @ 200 mls/hr 1X ONCE IV Last administered on 05/12/19at 16:30; Start 05/12/19 at 16:30; Stop 05/12/19 at 17:29; Status DC Ondansetron HCl (Zofran) 4 mg PRN Q8HRS PRN IV NAUSEA/VOMITING; Start 05/12/19 at 16:30; Stop 05/13/19 at 16:29 Fentanyl Citrate (Fentanyl 2ml Vial) 50 mcg PRN Q1HR PRN IV PAIN; Start 05/12/19 at 16:30; Stop 05/13/19 at 16:29 Acetaminophen (Tylenol) 650 mg PRN Q4HRS PRN PO FEVER; Start 05/12/19 at 16:30; Stop 05/13/19 at 16:29 Acetaminophen (Tylenol) 1,000 mg PRN Q6HRS PRN PO MILD PAIN / TEMP; Start 05/12/19 at 17:00 Bisacodyl (Dulcolax Supp) 10 mg PRN DAILY PRN RC CONSTIPATION; Start 05/12/19 at 17:00 Carvedilol (Coreg) 3.125 mg BIDWMEALS PO ; Start 05/12/19 at 17:00 Divalproex Sodium (Depakote Er) 750 mg DAILY PO ; Start 05/13/19 at 09:00 Docusate Sodium (Colace) 100 mg DAILY PO ; Start 05/13/19 at 09:00 Duloxetine HCl (Cymbalta) 30 mg DAILY PO ; Start 05/13/19 at 09:00 Gabapentin (Neurontin) 100 mg TID PO ; Start 05/12/19 at 21:00 Albuterol Sulfate (Ventolin Neb Soln) 2.5 mg PRN Q4HRS PRN NEB SHORTNESS OF BREATH; Start 05/12/19 at 17:15 Latanoprost (Xalatan) 1 drop HS OU ; Start 05/12/19 at 21:00 Levothyroxine Sodium (Synthroid) 150 mcg DAILY07 PO ; Start 05/13/19 at 07:00; Stop 05/13/19 at 02:07; Status DC Al Hydroxide/Mg Hydroxide (Mylanta Plus Xs) 15 ml PRN Q4HRS PRN PO DYSPEPSIA; Start 05/12/19 at 17:00 Magnesium Hydroxide (Milk Of Magnesia) 400 mg PRN DAILY PRN PO CONSTIPATION; Start 05/12/19 at 17:00 Mesalamine (Delzicol) 800 mg [id number] PO ; Start 05/12/19 at 21:00 Olanzapine (ZyPREXA) 5 mg QHS PO ; Start 05/12/19 at 21:00 Ondansetron HCl (Zofran Odt) 4 mg PRN Q6HRS PRN PO NAUSEA; Start 05/12/19 at 17:00 Polyethylene Glycol (miraLAX PACKET) 17 gm PRN DAILY PRN PO CONSTIPATION, 1ST CHOICE; Start 05/12/19 at 17:00 Ropinirole HCl (Requip) 1 mg QHS PO ; Start 05/12/19 at 21:00 Ergocalciferol (Vitamin D2) 50,000 unit WEEKLY PO ; Start 05/19/19 at 09:00 Fluticasone Propionate (Flonase) 2 spray DAILY NS ; Start 05/13/19 at 09:00 Non-Formulary Medication (Melatonin ) 1 tab QHS PO ; Start 05/12/19 at 21:00; Status UNV Pantoprazole Sodium (Protonix) 40 mg DAILYAC PO ; Start 05/13/19 at 07:30 Psyllium Hydrophilic Mucilloid (Metamucil Fiber Packet) 1 pkt DAILY PO ; Start 05/13/19 at 09:00 Risperidone (RisperDAL) 1.75 mg QHS PO ; Start 05/12/19 at 21:00 Oxybutynin Chloride (Ditropan) 5 mg BID PO ; Start 05/12/19 at 21:00 Enoxaparin Sodium (Lovenox 40mg Syringe) 40 mg Q12HR SQ Last administered on 05/12/19at 22:15; Start 05/12/19 at 21:00 Ceftriaxone Sodium (Rocephin) 1 gm Q24H IVP ; Start 05/13/19 at 09:00 Levothyroxine Sodium (Synthroid) 100 mcg DAILY06 PO Last administered on 05/13/19at 05:56; Start 05/13/19 at 06:00 Active Scripts Active Reported Oxybutynin Chloride 5 Mg Tablet 10 Mg PO HS Loratadine 10 Mg Tablet 10 Mg PO DAILY Furosemide 20 Mg Tablet 20 Mg PO DAILY Fluphenazine Hcl 5 Mg Tablet 2.5 Mg PO BID Amlodipine Besylate 10 Mg Tablet 10 Mg PO DAILY Zofran Odt (Ondansetron) 4 Mg Tab.rapdis 1 Tab SL PRN Q6HRS PRN Vitamin D3 (Cholecalciferol (Vitamin D3)) 5,000 Unit Tablet 1 Tab PO DAILY Tylenol Extra Strength (Acetaminophen) 500 Mg Tablet 1,000 Mg PO PRN Q6HRS PRN Levothyroxine Sodium 150 Mcg Tablet 100 Mcg PO DAILYAC Protonix (Pantoprazole Sodium) 20 Mg Tablet.dr 40 Mg PO DAILY Miralax (Polyethylene Glycol 3350) 17 Gm Powd.pack 1 Packet PO PRN DAILY PRN Milk Of Magnesia (Magnesium Hydroxide) 400 Mg/5 Ml Oral.susp 400 Mg PO PRN DAILY PRN Meloxicam 15 Mg Tablet 15 Mg PO DAILY Maalox Maximum Strength Susp (Mag Hydrox/Al Hydrox/Simeth) 355 Ml Oral.susp 15 Ml PO PRN Q4HRS PRN Gabapentin (Gabapentin) 100 Mg Capsule 300 Mg PO HS Flonase Allergy Relief (Fluticasone Propionate) 9.9 Ml [place].susp 2 Sprays NS DAILY Duoneb 0.5-3(2.5) Mg/3 Ml (Albuterol/Ipratropium) 3 Ml Ampul.neb 3 Ml NEB PRN Q4HRS PRN Dulcolax (Bisacodyl) 10 Mg Supp.rect 10 Mg RC PRN DAILY PRN Docusate Sodium 100 Mg Capsule 100 Mg PO BID Depakote Er (Divalproex Sodium) 250 Mg Tab.er.24h 1,250 Mg PO HS Cymbalta (Duloxetine Hcl) 30 Mg Capsule.dr 20 Mg PO DAILY Vitals/I & O Vital Sign - Last 24 Hours 05/12/19 05/12/19 05/12/19 05/12/19 12:36 12:45 13:30 13:51 Temp 97.6 97.6 Pulse 76 76 74 Resp 16 B/P (MAP) 143/66 (91) 143/66 (91) 127/81 (96) Pulse Ox 95 95 96 O2 Delivery Room Air Room Air Room Air 05/12/19 05/12/19 05/12/19 05/12/19 14:30 15:30 16:00 17:00 Temp 98.4 98.4 Pulse 78 78 87 74 Resp 16 B/P (MAP) 139/76 (97) 138/45 (76) 144/72 (96) Pulse Ox 91 95 82 95 O2 Delivery Room Air Room Air 05/12/19 05/12/19 05/12/19 05/12/19 17:40 19:00 20:00 23:00 Temp 97.7 98.1 97.7 98.1 Pulse 68 66 Resp 16 16 B/P (MAP) 140/80 (100) 128/97 (107) Pulse Ox 96 96 O2 Delivery Room Air Room Air Room Air Room Air 05/13/19 05/13/19 03:22 07:59 Temp 98.2 98.6 98.2 98.6 Pulse 45 61 Resp 20 20 B/P (MAP) 119/62 (81) 132/85 (101) Pulse Ox 92 97 O2 Delivery Room Air Room Air Intake and Output 0 05/12/19 05/12/19 05/13/19 15:00 23:00 07:00 Intake Total 480 ml Balance 480 ml KERWIN REZA MD May 13, 2019 09:13
[2019-05-13] MEDS: cefTRIAXone IV Push 1 GM VIAL. IVP SCH (09:25)
--- NOTE | 2019-05-13 09:26 | NUR ---
IP: Pt has a hx of + mrsa screen on 02/01/17 with one documented negative on 10/29/17. Pt to be in contact precautions until pending screen is verified.
[2019-05-13] MEDS: ENOXAPARIN 40 MG/0.4 ML SYRINGE. SQ SCH ×2 (09:29→20:41)
[2019-05-13] MEDS: CETIRIZINE HCL 10 MG TABLET. PO SCH (09:30)
[2019-05-13] MEDS: MELOXICAM 7.5 MG TABLET PO SCH (09:30)
[2019-05-13] MEDS: FUROSEMIDE 20 MG TABLET PO SCH (09:30)
[2019-05-13] MEDS: PANTOPRAZOLE 40 MG TABLET.DR. PO SCH (09:31)
[2019-05-13] MEDS: DIVALPROEX EXTENDED RELEASE 250 MG TAB.ER.24H. PO SCH (09:31)
[2019-05-13] MEDS: DOCUSATE SODIUM 100 MG CAPSULE. PO SCH (09:31)
[2019-05-13] MEDS: DULoxetine HCL 30 MG CAPSULE.DR PO SCH (09:31)
[2019-05-13] MEDS: FLUTICASONE 50MCG/NASAL SPRAY 16GM BOTTLE. NS SCH (09:32)
[2019-05-13] MEDS: amLODIPine BESYLATE 10 MG TABLET PO SCH (09:32)
--- NOTE | 2019-05-13 11:32 | NUR ---
SW consulted for pt is does not want to return to [facility], wants her own apartment. Chart reviewed and discussed with RN. Pt is LTC resident at [facility], phone: [phone], fax: [phone]. Pt has PMX anxiety, Asthma, COPD, CVA, DM2 and is admitted for hypoxemia. SW attempted to meet with pt and pt is down for ECHO. SW will attempt to meet with pt later again. Addendum: 05/13/19 at 1359 by PHYLLIS MCINTOSH Pt currently working with therapy. Will attempt to meet again.
--- NOTE | 2019-05-13 11:52 | CARD ---
MR#: [id number] Date of Study: 05/13/2019 Ordering Physician: ARABELLA HENLEY, Referring Physician: ARABELLA HENLEY, Tech: Maine Crowley APPROVED REPORT EXAM: Two-dimensional and M-mode echocardiogram with Doppler and color Doppler. Other Information Quality : AverageHR: 71bpm INDICATION PTHN 2D DIMENSIONS RVDd2.2 (2.9-3.5cm)Left Atrium(2D)3.1 (1.6-4.0cm) IVSd1.4 (0.7-1.1cm)Aortic Root(2D)2.0 (2.0-3.7cm) LVDd5.0 (3.9-5.9cm)LVOT Diameter2.0 (1.8-2.4cm) PWd0.8 (0.7-1.1cm)LVDs3.9 (2.5-4.0cm) FS (%) 21.1 %SV50.3 ml LVEF(%)42.8 (>50%) Aortic Valve AoV Peak Cuong.115.7cm/sAoV VTI21.3cm AO Peak GR.5.4mmHgLVOT Peak Cuong.63.4cm/s AO Mean GR.3mmHgAVA (VMAX)1.78cm2 Mitral Valve MV E Hikzcacf84.3cm/sMV E Peak Gr.2mmHg MV DECEL [id number] A Fhobksym01.1cm/s MV E Mean Gr.1mmHgE/A Ratio0.7 Pulmonary Valve PV Peak Eshusxry63.8cm/s Tricuspid Valve RAP [id number] Pulmonary Vein S1 Yofkrjeq65.7cm/sD2 Jeozcorb83.3cm/s LEFT VENTRICLE The left ventricle is normal size. There is borderline to mild septal left ventricular hypertrophy. T he left ventricular systolic function is mildly impaired. The Ejection Fraction is 45%. There is ananth bal hypokinesis of the left ventricle. Transmitral Doppler flow pattern is Grade I-abnormal relaxatio n pattern. RIGHT VENTRICLE The right ventricle cavity is small. Systolic function is mildly reduced. ATRIA The left atrium size is normal. The right atrium size is normal. The interatrial septum is intact wit h no evidence for an atrial septal defect or patent foramen ovale as noted on 2-D or Doppler imaging. AORTIC VALVE The aortic valve is normal in structure and function. Doppler and Color Flow revealed no significant aortic regurgitation. There is no significant aortic valvular stenosis. MITRAL VALVE The mitral valve is normal in structure and function. There is no evidence of mitral valve prolapse. There is no mitral valve stenosis. Doppler and Color-flow revealed trace mitral regurgitation. TRICUSPID VALVE The tricuspid valve is normal in structure and function. Doppler and Color Flow revealed trace tricus pid regurgitation. There is no tricuspid valve stenosis. PULMONIC VALVE The pulmonic valve is not well visualized. Doppler and Color Flow revealed trace to mild pulmonic yumiko vular regurgitation. GREAT VESSELS The aortic root is normal in size. The sinus of valsalva may be mildly dilated. The ascending aorta i s within normal limits. PERICARDIAL EFFUSION There is no pleural effusion. There is no evidence of significant pericardial effusion. Critical Notification Critical Value: No <Conclusion> The left ventricular systolic function is mildly impaired. The Ejection Fraction is 45%. Transmitral Doppler flow pattern is Grade I-abnormal relaxation pattern. Trace mitral regurgitation. Trace tricuspid regurgitation. There is no evidence of significant pericardial effusion. Signed by : Henrique Sepulveda, Electronically Approved : 05/13/2019 11:52:14
[2019-05-13 15:55] VITALS: BP 120/81
--- NOTE | 2019-05-13 17:34 | PDOC ---
PULMONARY PROGRESS NOTES Vitals Vital Signs Date Time Temp Pulse Resp B/P (MAP) Pulse Ox O2 Delivery O2 Flow Rate FiO2 05/13/19 15:55 97.5 52 20 120/81 (94) 98 Room Air 97.5 General: Alert HEENT: Other Lungs: Clear, Other Cardiovascular: S1, S2 Abdomen: Soft, Non-tender Extremities: Other Labs Laboratory Tests Test 05/12/19 13:25 05/12/19 14:30 05/12/19 21:12 05/13/19 03:35 Urine Collection Type Unknown Urine Color Yellow Urine Clarity Hazy Urine pH 7.5 Urine Specific [place] 1.020 Urine Protein Negative mg/dL (NEG-TRACE) Urine Glucose (UA) Negative mg/dL (NEG) Urine Ketones (Stick) Negative mg/dL (NEG) Urine Blood Negative (NEG) Urine Nitrite Negative (NEG) Urine Bilirubin Negative (NEG) Urine Urobilinogen Dipstick 0.2 mg/dL (0.2 mg/dL) Urine Leukocyte Esterase Small (NEG) Urine RBC Occ /HPF (0-2) Urine WBC 1-4 /HPF (0-4) Urine Squamous Epithelial Cells Many /LPF Urine Bacteria Many /HPF (0-FEW) Urine Mucus Mod /LPF White Blood Count 7.4 x10^3/uL (4.0-11.0) Red Blood Count 3.93 x10^6/uL (3.50-5.40) Hemoglobin 12.1 g/dL (12.0-15.5) Hematocrit 36.9 % (36.0-47.0) Mean Corpuscular Volume 94 fL (79-100) Mean Corpuscular Hemoglobin 31 pg (25-35) Mean Corpuscular Hemoglobin Concent 33 g/dL (31-37) Red Cell Distribution Width 13.3 % (11.5-14.5) Platelet Count 187 x10^3/uL (140-400) Neutrophils (%) (Auto) 52 % (31-73) Lymphocytes (%) (Auto) 36 % (24-48) Monocytes (%) (Auto) 10 % (0-9) Eosinophils (%) (Auto) 1 % (0-3) Basophils (%) (Auto) 1 % (0-3) Neutrophils # (Auto) 3.8 x10^3/uL (1.8-7.7) Lymphocytes # (Auto) 2.7 x10^3/uL (1.0-4.8) Monocytes # (Auto) 0.7 x10^3/uL (0.0-1.1) Eosinophils # (Auto) 0.1 x10^3/uL (0.0-0.7) Basophils # (Auto) 0.1 x10^3/uL (0.0-0.2) Sodium Level 145 mmol/L (136-145) 148 mmol/L (136-145) Potassium Level 3.7 mmol/L (3.5-5.1) 3.7 mmol/L (3.5-5.1) Chloride Level 108 mmol/L (98-107) 109 mmol/L (98-107) Carbon Dioxide Level 31 mmol/L (21-32) 31 mmol/L (21-32) Anion Gap 6 (6-14) 8 (6-14) Blood Urea Nitrogen 22 mg/dL (7-20) 24 mg/dL (7-20) Creatinine 0.9 mg/dL (0.6-1.0) 1.0 mg/dL (0.6-1.0) Estimated GFR (Cockcroft-Gault) 76.5 67.8 BUN/Creatinine Ratio 24 (6-20) Glucose Level 109 mg/dL (70-99) 117 mg/dL (70-99) Calcium Level 9.2 mg/dL (8.5-10.1) 8.4 mg/dL (8.5-10.1) Magnesium Level 2.0 mg/dL (1.8-2.4) Total Bilirubin 0.3 mg/dL (0.2-1.0) Aspartate Amino Transf (AST/SGOT) 27 U/L (15-37) Alanine Aminotransferase (ALT/SGPT) 15 U/L (14-59) Alkaline Phosphatase 92 U/L (46-116) Troponin I Quantitative < 0.017 ng/mL (0.000-0.055) < 0.017 ng/mL (0.000-0.055) Total Protein 7.5 g/dL (6.4-8.2) Albumin 3.3 g/dL (3.4-5.0) Albumin/Globulin Ratio 0.8 (1.0-1.7) Glucose (Fingerstick) 138 mg/dL (70-99) Test 05/13/19 07:47 05/13/19 12:10 05/13/19 16:46 Glucose (Fingerstick) 97 mg/dL (70-99) 78 mg/dL (70-99) 110 mg/dL (70-99) Laboratory Tests Test 05/12/19 21:12 05/13/19 03:35 05/13/19 07:47 05/13/19 12:10 Glucose (Fingerstick) 138 mg/dL (70-99) 97 mg/dL (70-99) 78 mg/dL (70-99) Sodium Level 148 mmol/L (136-145) Potassium Level 3.7 mmol/L (3.5-5.1) Chloride Level 109 mmol/L (98-107) Carbon Dioxide Level 31 mmol/L (21-32) Anion Gap 8 (6-14) Blood Urea Nitrogen 24 mg/dL (7-20) Creatinine 1.0 mg/dL (0.6-1.0) Estimated GFR (Cockcroft-Gault) 67.8 Glucose Level 117 mg/dL (70-99) Calcium Level 8.4 mg/dL (8.5-10.1) Troponin I Quantitative < 0.017 ng/mL (0.000-0.055) Test 05/13/19 16:46 Glucose (Fingerstick) 110 mg/dL (70-99) Medications Active Scripts Medications Dose Route/Sig Max Daily Dose Days Date Category Oxybutynin Chloride 5 Mg Tablet 10 Mg PO HS 05/13/19 Reported Loratadine 10 Mg Tablet 10 Mg PO DAILY 05/13/19 Reported Furosemide 20 Mg Tablet 20 Mg PO DAILY 05/13/19 Reported Fluphenazine Hcl 5 Mg Tablet 2.5 Mg PO BID 05/13/19 Reported Amlodipine Besylate 10 Mg Tablet 10 Mg PO DAILY 05/13/19 Reported Zofran Odt (Ondansetron) 4 Mg Tab.rapdis 1 Tab SL PRN Q6HRS PRN 10/29/17 Reported Vitamin D3 (Cholecalciferol (Vitamin D3)) 5,000 Unit Tablet 1 Tab PO DAILY 10/29/17 Reported Tylenol Extra Strength (Acetaminophen) 500 Mg Tablet 1,000 Mg PO PRN Q6HRS PRN 10/29/17 Reported Levothyroxine Sodium 150 Mcg Tablet 100 Mcg PO DAILYAC 10/29/17 Reported Protonix (Pantoprazole Sodium) 20 Mg Tablet. 40 Mg PO DAILY 10/29/17 Reported Miralax (Polyethylene Glycol 3350) 17 Gm Powd.pack 1 Packet PO PRN DAILY PRN 10/29/17 Reported Milk Of Magnesia (Magnesium Hydroxide) 400 Mg/5 Ml Oral.susp 400 Mg PO PRN DAILY PRN 10/29/17 Reported Meloxicam 15 Mg Tablet 15 Mg PO DAILY 10/29/17 Reported Maalox Maximum Strength Susp (Mag Hydrox/Al Hydrox/Simeth) 355 Ml Oral.susp 15 Ml PO PRN Q4HRS PRN 10/29/17 Reported Gabapentin (Gabapentin) 100 Mg Capsule 300 Mg PO HS 10/29/17 Reported Flonase Allergy Relief (Fluticasone Propionate) 9.9 Ml [place].susp 2 Sprays NS DAILY 10/29/17 Reported Duoneb 0.5-3(2.5) Mg/3 Ml (Albuterol/Ipratropium) 3 Ml Ampul.neb 3 Ml NEB PRN Q4HRS PRN 10/29/17 Reported Dulcolax (Bisacodyl) 10 Mg Supp.rect 10 Mg RC PRN DAILY PRN 10/29/17 Reported Docusate Sodium 100 Mg Capsule 100 Mg PO BID 10/29/17 Reported Depakote Er (Divalproex Sodium) 250 Mg Tab.er.24h 1,250 Mg PO HS 10/29/17 Reported Cymbalta (Duloxetine Hcl) 30 Mg Capsule.dr 20 Mg PO DAILY 10/29/17 Reported Impression . NOTE DICTATED AECOPD WILLL HYDRATE AND OBTAIN CTA RULE OUT PE, CLINICAL SUSPICION IS LOW GUILLAUME ZAMBRANO MD May 13, 2019 17:34
[2019-05-13] MEDS: IV 1/2 NORMAL SALINE 1,000 ML IV SCH (18:30)
[2019-05-13 19:50] VITALS: BP 157/94
[2019-05-13] MEDS: LACTOBACILLUS RHAMNOSUS GG 1 CAPSULE. PO SCH (20:42)
[2019-05-13] MEDS: LATANOPROST 0.005% OPHTH SOLUTION 2.5ML BOTTLE. OU SCH ×2 (20:54)
[2019-05-13] MEDS ORDERED: OXYBUTYNIN CHLORIDE 5 MG TABLET PO SCH (21:00)
[2019-05-13 23:50] VITALS: BP 149/80
[2019-05-14 03:40] VITALS: BP 128/83
[2019-05-14] MEDS: IV 1/2 NORMAL SALINE 1,000 ML IV SCH (05:58)
[2019-05-14] MEDS: LEVOTHYROXINE 100 MCG TABLET PO SCH (05:59)
--- NOTE | 2019-05-14 06:00 | CONS ---
DATE OF CONSULTATION: 05/13/2019 ATTENDING PHYSICIAN: Dr. Troy Reece. REASON FOR CONSULTATION: The patient is seen in pulmonary consultation at the request of Dr. Reece for shortness of air. HISTORY OF PRESENT ILLNESS: The patient is a 63-year-old that is well known to me from previous hospitalizations. Has underlying chronic obstructive pulmonary disease with an asthma component, [facility] She was found to have O2 saturation down to 83%, persistent good reading on the O2 sat monitor. The patient was also complaining of being short of breath. She was admitted. I was asked to see her in consultation. She had an echocardiogram, which revealed ejection fraction of 45%, RV systolic function was reduced. Chest x-ray revealed clear lungs without any infiltrates. The patient denies fever or chills. No nausea, vomiting, diarrhea. PAST MEDICAL HISTORY: Remarkable for: COPD with an asthma component, prior CVA, depression, diabetes type 2, diverticulitis, gastroesophageal reflux, hyperlipidemia, hypertension, irritable bowel syndrome, schizophrenia, hypothyroidism, neuropathy and overactive bladder. PAST SURGICAL HISTORY: She has had previous tubal ligation, tonsillectomy, bladder surgery, hysterectomy, C-spine, rotator cuff and right wrist carpal tunnel release. ALLERGIES: Please see the list. SOCIAL HISTORY: Socially, she is currently not smoking. CURRENT MEDICATIONS: List was reviewed. FAMILY HISTORY: Unknown. SOCIAL HISTORY: She resides at [facility]. Denies any current use of tobacco. PHYSICAL EXAMINATION: VITAL SIGNS: Morbid obese, with saturations low at 1.82, saturation 82%, currently 97%. HEENT: Eyes, the sclerae were nonicteric. NECK: Jugular venous distention was not elevated. No lymphadenopathy. CHEST: Full expansion. LUNGS: Adequate airway flow with no wheezes. CARDIOVASCULAR: Regular rate and rhythm with S1, S2, no S3. ABDOMEN: Soft, nontender, nondistended. EXTREMITIES: No clubbing, cyanosis, or edema. NEUROLOGIC: The patient was awake, alert, following commands. A detailed neuro exam was not performed. IMPRESSION: 1. Acute hypoxemic respiratory failure. 2. Cardiomyopathy, ejection fraction of 45%. 3. Echo revealing right ventricular function to be reduced. 4. Cardiomegaly. 5. Morbid obesity. 6. Acute exacerbation of chronic obstructive pulmonary disease. PLAN: 1. We will continue current treatment for acute exacerbation of chronic obstructive pulmonary disease. 2. Complete workup with the CT angiogram to rule out PE, will hydrate the patient this evening and obtain CT angiogram in the morning, noted that her BUN was slightly increased. I do appreciate the privilege in sharing in the patient's care. GUILLAUME ZAMBRANO MD DR: ANTONIETTA/viraj JOB#: [id number] / [id number]
[2019-05-14 07:00] VITALS: BP 153/105
[2019-05-14] MEDS ORDERED: CONTRAST GIVEN. MC PRN (08:00)
[2019-05-14] MEDS ORDERED: IOHEXOL 350 MG/ML 100 ML VIAL. IV ONE (08:00)
--- NOTE | 2019-05-14 08:19 | NUR ---
Late note: SW spoke with pt regarding circumstances of referral. Pt states her brother is her DPOA but he is only supposed to step up when she can't make decisions. Pt states her family thinks she needs to live in [place]. Pt states she is working on transition[place].Pt shows me several paperwork and states the SWer at [facility] has been helping her as well. Pt states she is approved for HCBS and 4th on the list for an apartment. SW discussed pt to be more realistic as she has been living in an institutional setting for the past 3 years, she at least will need to consider living in [place] rather than [place]. Pt agrees with this but also wants to start tele work, wants to get her SSI back and establish an independent living. Pt does not believe she needs to live in a shelter and from my observation she might do better in [place] setting if she does not want to live in LTC setting. Pt tells me she has lot of mental health hx but she has been good at taking her medication. I believe pt has been at [facility] at some point which is a level 2 facility. SW discussed pt will need 24/ support and will need to consider this while she is making arrangements to move to an apartment. SW discussed when pt dc from here [facility] and she can keep working on transitioning to [place]. Pt verbalized understanding and requested SWer to provide her some community resources. SW will provide resources prior dc.
[2019-05-14] MEDS: FLUPHENAZINE HCL 2.5 MG TABLET. PO SCH (09:00)
[2019-05-14] MEDS: GABAPENTIN 100 MG CAPSULE. PO SCH ×2 (09:06→15:01)
[2019-05-14] MEDS: PANTOPRAZOLE 40 MG TABLET.DR. PO SCH (09:07)
[2019-05-14] MEDS: DOCUSATE SODIUM 100 MG CAPSULE. PO SCH (09:07)
[2019-05-14] MEDS: FUROSEMIDE 20 MG TABLET PO SCH (09:07)
[2019-05-14] MEDS: DIVALPROEX EXTENDED RELEASE 250 MG TAB.ER.24H. PO SCH (09:07)
[2019-05-14] MEDS: CETIRIZINE HCL 10 MG TABLET. PO SCH (09:08)
[2019-05-14] MEDS: amLODIPine BESYLATE 10 MG TABLET PO SCH (09:08)
[2019-05-14] MEDS: LACTOBACILLUS RHAMNOSUS GG 1 CAPSULE. PO SCH (09:08)
[2019-05-14] MEDS: MELOXICAM 7.5 MG TABLET PO SCH (09:08)
[2019-05-14] MEDS: DULoxetine HCL 30 MG CAPSULE.DR PO SCH (09:08)
[2019-05-14] MEDS: FLUTICASONE 50MCG/NASAL SPRAY 16GM BOTTLE. NS SCH (09:09)
[2019-05-14] MEDS: cefTRIAXone IV Push 1 GM VIAL. IVP SCH (09:09)
[2019-05-14] MEDS: ENOXAPARIN 40 MG/0.4 ML SYRINGE. SQ SCH (09:10)
--- NOTE | 2019-05-14 10:24 | RAD ---
EXAM: CT ANGIOGRAPHY OF THE CHEST WITH AND WITHOUT CONTRAST. HISTORY: Hypoxia. TECHNIQUE: Computed tomographic angiography of the chest was performed before and after the intravenous administration of iodinated contrast. 3-D maximum intensity projections were also performed. COMPARISON: 10/29/2017. FINDINGS: Images of the upper abdomen reveal no acute abnormality. Bone windows reveal no suspicious lesions. No pulmonary emboli are identified. There is no aortic dissection or aneurysm. There are no pathologically enlarged mediastinal or axillary lymph nodes. There is no pleural or pericardial effusion. Left ventricular hypertrophy is noted. Lung windows reveal mild dependent atelectasis. IMPRESSION: 1. No pulmonary embolism. 3. LEFT ventricular hypertrophy. *One or more of the following individualized dose reduction techniques were utilized for this examination: 1. Automated exposure control. 2. Adjustment of the mA and/or kV according to patient size. 3. Use of iterative reconstruction technique. Electronically signed by: Destiny Pelayo MD (05/14/2019 10:21 AM) [facility]
--- NOTE | 2019-05-14 10:50 | PDOC ---
PULMONARY PROGRESS NOTES Vitals Vital Signs Date Time Temp Pulse Resp B/P (MAP) Pulse Ox O2 Delivery O2 Flow Rate FiO2 05/14/19 09:08 63 153/110 05/14/19 07:00 97.7 18 99 Room Air 97.7 General: Alert HEENT: Other Lungs: Clear, Other Cardiovascular: S1, S2 Abdomen: Soft, Non-tender Extremities: Other Labs Laboratory Tests Test 05/12/19 13:25 05/12/19 14:30 05/12/19 21:12 05/12/19 23:30 Urine Collection Type Unknown Urine Color Yellow Urine Clarity Hazy Urine pH 7.5 Urine Specific [place] 1.020 Urine Protein Negative mg/dL (NEG-TRACE) Urine Glucose (UA) Negative mg/dL (NEG) Urine Ketones (Stick) Negative mg/dL (NEG) Urine Blood Negative (NEG) Urine Nitrite Negative (NEG) Urine Bilirubin Negative (NEG) Urine Urobilinogen Dipstick 0.2 mg/dL (0.2 mg/dL) Urine Leukocyte Esterase Small (NEG) Urine RBC Occ /HPF (0-2) Urine WBC 1-4 /HPF (0-4) Urine Squamous Epithelial Cells Many /LPF Urine Bacteria Many /HPF (0-FEW) Urine Mucus Mod /LPF White Blood Count 7.4 x10^3/uL (4.0-11.0) Red Blood Count 3.93 x10^6/uL (3.50-5.40) Hemoglobin 12.1 g/dL (12.0-15.5) Hematocrit 36.9 % (36.0-47.0) Mean Corpuscular Volume 94 fL (79-100) Mean Corpuscular Hemoglobin 31 pg (25-35) Mean Corpuscular Hemoglobin Concent 33 g/dL (31-37) Red Cell Distribution Width 13.3 % (11.5-14.5) Platelet Count 187 x10^3/uL (140-400) Neutrophils (%) (Auto) 52 % (31-73) Lymphocytes (%) (Auto) 36 % (24-48) Monocytes (%) (Auto) 10 % (0-9) Eosinophils (%) (Auto) 1 % (0-3) Basophils (%) (Auto) 1 % (0-3) Neutrophils # (Auto) 3.8 x10^3/uL (1.8-7.7) Lymphocytes # (Auto) 2.7 x10^3/uL (1.0-4.8) Monocytes # (Auto) 0.7 x10^3/uL (0.0-1.1) Eosinophils # (Auto) 0.1 x10^3/uL (0.0-0.7) Basophils # (Auto) 0.1 x10^3/uL (0.0-0.2) Sodium Level 145 mmol/L (136-145) Potassium Level 3.7 mmol/L (3.5-5.1) Chloride Level 108 mmol/L (98-107) Carbon Dioxide Level 31 mmol/L (21-32) Anion Gap 6 (6-14) Blood Urea Nitrogen 22 mg/dL (7-20) Creatinine 0.9 mg/dL (0.6-1.0) Estimated GFR (Cockcroft-Gault) 76.5 BUN/Creatinine Ratio 24 (6-20) Glucose Level 109 mg/dL (70-99) Calcium Level 9.2 mg/dL (8.5-10.1) Magnesium Level 2.0 mg/dL (1.8-2.4) Total Bilirubin 0.3 mg/dL (0.2-1.0) Aspartate Amino Transf (AST/SGOT) 27 U/L (15-37) Alanine Aminotransferase (ALT/SGPT) 15 U/L (14-59) Alkaline Phosphatase 92 U/L (46-116) Troponin I Quantitative < 0.017 ng/mL (0.000-0.055) Total Protein 7.5 g/dL (6.4-8.2) Albumin 3.3 g/dL (3.4-5.0) Albumin/Globulin Ratio 0.8 (1.0-1.7) Glucose (Fingerstick) 138 mg/dL (70-99) Nasal Screen MRSA (PCR) Positive (Negative) Test 05/13/19 03:35 05/13/19 07:47 05/13/19 12:10 05/13/19 16:46 Sodium Level 148 mmol/L (136-145) Potassium Level 3.7 mmol/L (3.5-5.1) Chloride Level 109 mmol/L (98-107) Carbon Dioxide Level 31 mmol/L (21-32) Anion Gap 8 (6-14) Blood Urea Nitrogen 24 mg/dL (7-20) Creatinine 1.0 mg/dL (0.6-1.0) Estimated GFR (Cockcroft-Gault) 67.8 Glucose Level 117 mg/dL (70-99) Calcium Level 8.4 mg/dL (8.5-10.1) Troponin I Quantitative < 0.017 ng/mL (0.000-0.055) Glucose (Fingerstick) 97 mg/dL (70-99) 78 mg/dL (70-99) 110 mg/dL (70-99) Test 05/13/19 18:14 05/13/19 21:33 05/14/19 09:09 D-Dimer ([place]) 1.57 ug/mlFEU (0.00-0.50) Glucose (Fingerstick) 106 mg/dL (70-99) 65 mg/dL (70-99) Laboratory Tests Test 05/13/19 12:10 05/13/19 16:46 05/13/19 18:14 05/13/19 21:33 Glucose (Fingerstick) 78 mg/dL (70-99) 110 mg/dL (70-99) 106 mg/dL (70-99) D-Dimer ([place]) 1.57 ug/mlFEU (0.00-0.50) Test 05/14/19 09:09 Glucose (Fingerstick) 65 mg/dL (70-99) Medications Active Scripts Medications Dose Route/Sig Max Daily Dose Days Date Category Oxybutynin Chloride 5 Mg Tablet 10 Mg PO HS 05/13/19 Reported Loratadine 10 Mg Tablet 10 Mg PO DAILY 05/13/19 Reported Furosemide 20 Mg Tablet 20 Mg PO DAILY 05/13/19 Reported Fluphenazine Hcl 5 Mg Tablet 2.5 Mg PO BID 05/13/19 Reported Amlodipine Besylate 10 Mg Tablet 10 Mg PO DAILY 05/13/19 Reported Zofran Odt (Ondansetron) 4 Mg Tab.rapdis 1 Tab SL PRN Q6HRS PRN 10/29/17 Reported Vitamin D3 (Cholecalciferol (Vitamin D3)) 5,000 Unit Tablet 1 Tab PO DAILY 10/29/17 Reported Tylenol Extra Strength (Acetaminophen) 500 Mg Tablet 1,000 Mg PO PRN Q6HRS PRN 10/29/17 Reported Levothyroxine Sodium 150 Mcg Tablet 100 Mcg PO DAILYAC 10/29/17 Reported Protonix (Pantoprazole Sodium) 20 Mg Tablet.dr 40 Mg PO DAILY 10/29/17 Reported Miralax (Polyethylene Glycol 3350) 17 Gm Powd.pack 1 Packet PO PRN DAILY PRN 10/29/17 Reported Milk Of Magnesia (Magnesium Hydroxide) 400 Mg/5 Ml Oral.susp 400 Mg PO PRN DAILY PRN 10/29/17 Reported Meloxicam 15 Mg Tablet 15 Mg PO DAILY 10/29/17 Reported Maalox Maximum Strength Susp (Mag Hydrox/Al Hydrox/Simeth) 355 Ml Oral.susp 15 Ml PO PRN Q4HRS PRN 10/29/17 Reported Gabapentin (Gabapentin) 100 Mg Capsule 300 Mg PO HS 10/29/17 Reported Flonase Allergy Relief (Fluticasone Propionate) 9.9 Ml [place].susp 2 Sprays NS DAILY 10/29/17 Reported Duoneb 0.5-3(2.5) Mg/3 Ml (Albuterol/Ipratropium) 3 Ml Ampul.neb 3 Ml NEB PRN Q4HRS PRN 10/29/17 Reported Dulcolax (Bisacodyl) 10 Mg Supp.rect 10 Mg RC PRN DAILY PRN 10/29/17 Reported Docusate Sodium 100 Mg Capsule 100 Mg PO BID 10/29/17 Reported Depakote Er (Divalproex Sodium) 250 Mg Tab.er.24h 1,250 Mg PO HS 10/29/17 Reported Cymbalta (Duloxetine Hcl) 30 Mg Capsule.dr 20 Mg PO DAILY 10/29/17 Reported Impression . IMPRESSION: 1. Acute hypoxemic respiratory failure. 2. Cardiomyopathy, ejection fraction of 45%. 3. Echo revealing right ventricular function to be reduced. 4. Cardiomegaly. 5. Morbid obesity. 6. Acute exacerbation of chronic obstructive pulmonary disease. IMPRESSION: 1. No pulmonary embolism. 3. LEFT ventricular hypertrophy. Plan . 1. We will continue current treatment for acute exacerbation of chronic obstructive pulmonary disease. GUILLAUME ZAMBRANO MD May 14, 2019 10:50
[2019-05-14 11:00] VITALS: BP 128/78
[2019-05-14] MEDS ORDERED: LEVO500T59 PO (12:58)
--- NOTE | 2019-05-14 13:01 | SNU/HH DC ---
DISCHARGE ORDERS DISCHARGE INFORMATION: DISCHARGE DATE: May 14, 2019 FINAL DIAGNOSIS 1. Acute hypoxemic respiratory failure. 2. Cardiomyopathy, ejection fraction of 45%. 3. secondary pulmonary hypertension 4. Cardiomegaly. 5. Morbid obesity. BMI 46 6. Acute exacerbation of chronic obstructive pulmonary disease. 7. Bipolar disorder, anxiety and depression, on disability 8. weakness and debility Problems Medical Problems: (1) Anxiety and depression Status: Chronic (2) Asthma with COPD Status: Acute (3) CAD (coronary artery disease) Status: Chronic (4) Diabetes mellitus, type II Status: Chronic (5) Dysuria Status: Acute (6) GERD (gastroesophageal reflux disease) Status: Acute (7) High cholesterol Status: Chronic (8) Hypertension Status: Chronic (9) Hypothyroidism Status: Chronic (10) Hypoxemia Status: Acute (11) Hypoxia Status: Acute (12) IBS (irritable bowel syndrome) Status: Chronic (13) Neuropathy Status: Chronic (14) Overactive bladder Status: Chronic (15) Schizophrenia Status: Chronic CONDITION ON DISCHARGE: Stable CODE STATUS: Code Status: Full ASSISTED: SNF STAY <30 DAYS: Yes POST DISCHARGE ORDERS: ACTIVITY ORDERS: Activity as tolerated WEIGHT BEARING STATUS: As tolerated BATHING ORDERS: Shower-keep dressing dry WOUND/INCISION CARE: Ice to area for comfort CHECKS AFTER DISCHARGE: CHECKS AFTER DISCHARGE: Check blood press - daily, Check your Temp as needed TREATMENT/EQUIPMENT ORDERS: ADAPTIVE EQUIPMENT NEEDED: None Physical Therapy For: Evalulation/Treatment Occupational Therapy For: Evaluation/Treatment DISCHARGE MEDICATIONS: Home Meds Active Scripts Levofloxacin (LEVAQUIN) 500 Mg Tablet, 1 TAB PO DAILY for UTI for 3 Days, #3 TAB 0 Refills Prov:KERWIN REZA MD 05/14/19 Reported Medications Oxybutynin Chloride (OXYBUTYNIN CHLORIDE) 5 Mg Tablet, 10 MG PO HS for overactive bladder, TAB 05/13/19 Loratadine (LORATADINE) 10 Mg Tablet, 10 MG PO DAILY for allergies, TAB 05/13/19 Furosemide (FUROSEMIDE) 20 Mg Tablet, 20 MG PO DAILY for diuresis, TAB 05/13/19 Fluphenazine Hcl (FLUPHENAZINE HCL) 5 Mg Tablet, 2.5 MG PO BID for schizophrenia, TAB 05/13/19 Amlodipine Besylate (AMLODIPINE BESYLATE) 10 Mg Tablet, 10 MG PO DAILY for htn, TAB 05/13/19 Ondansetron (ZOFRAN ODT) 4 Mg Tab.rapdis, 1 TAB SL PRN Q6HRS PRN for NAUSEA, TAB 10/29/17 Cholecalciferol (Vitamin D3) (VITAMIN D3) 5,000 Unit Tablet, 1 TAB PO DAILY for supplement, TAB 10/29/17 Acetaminophen (TYLENOL EXTRA STRENGTH) 500 Mg Tablet, 1000 MG PO PRN Q6HRS PRN for MILD PAIN / TEMP, TAB 10/29/17 Levothyroxine Sodium (LEVOTHYROXINE SODIUM) 150 Mcg Tablet, 100 MCG PO DAILYAC for low thyroid, TAB 10/29/17 Pantoprazole Sodium (PROTONIX) 20 Mg Tablet.dr, 40 MG PO DAILY, TAB 10/29/17 Polyethylene Glycol 3350 (MIRALAX) 17 Gm Powd.pack, 1 PACKET PO PRN DAILY PRN for CONSTIPATION, #30 PACKET 3 Refills 10/29/17 Magnesium Hydroxide (MILK OF MAGNESIA) 400 Mg/5 Ml Oral.susp, 400 MG PO PRN DAILY PRN for CONSTIPATION, MISC 10/29/17 Meloxicam (MELOXICAM) 15 Mg Tablet, 15 MG PO DAILY for inflammation, TAB 10/29/17 Mag Hydrox/Al Hydrox/Simeth (MAALOX MAXIMUM STRENGTH SUSP) 355 Ml Oral.susp, 15 ML PO PRN Q4HRS PRN for DYSPEPSIA, MISC 10/29/17 Gabapentin (GABAPENTIN ) 100 Mg Capsule, 300 MG PO HS for neuropathy, CAP 10/29/17 Fluticasone Propionate (Flonase Allergy Relief) 9.9 Ml [place].susp, 2 SPRAYS NS DAILY, BOTTLE 10/29/17 Ipratropium/Albuterol Sulfate (DUONEB 0.5-3(2.5) MG/3 ML) 3 Ml Ampul.neb, 3 ML NEB PRN Q4HRS PRN for SHORTNESS OF BREATH, EACH 10/29/17 Bisacodyl (DULCOLAX) 10 Mg Supp.rect, 10 MG RC PRN DAILY PRN for CONSTIPATION, SUPP.RECT 0 Refills 10/29/17 Docusate Sodium (DOCUSATE SODIUM) 100 Mg Capsule, 100 MG PO BID for constipation, CAP 10/29/17 Divalproex Sodium (DEPAKOTE ER) 250 Mg Tab.er.24h, 1250 MG PO HS for seizures, TAB.SR 10/29/17 Duloxetine Hcl (CYMBALTA) 30 Mg Capsule.dr, 20 MG PO DAILY for depression, CAP 10/29/17 KERWIN REZA MD May 14, 2019 13:00
--- NOTE | 2019-05-14 14:03 | NUR ---
Orders faxed to [facility]. Awaiting on transport time.
[2019-05-14 15:00] VITALS: BP 153/82
--- NOTE | 2019-05-14 17:36 | NUR ---
Discharge Note: [facility] Discharge instructions and discharge home medications reviewed with Other facility and a copy given. All questions have been answered and understanding verbalized. The following instructions and handouts were given: patient visit report, medication information, education. Discontinued lines and drains: peripheral IV, tip intact. Patient discharged to terminal operations supervisor care with [facility] via transportation service. Patient left unit awake, in stable condition with all personal belongings. Report called to ADDISON Jean at [facility].
[2019-05-19] MEDS ORDERED: ERGOCALCIFEROL (VITAMIN D2) 50,000 UNIT CAPSULE. PO SCH (09:00)
== END 2019-05-14 16:50 | disposition home or self-care (01) | DRG 189 ==
LOC: ER 12:36 → 6 SOUTH 14:45
PROVIDERS: ADMIT Internal Medicine; ATTEND Internal Medicine
DX: J96.01 Acute respiratory failure with hypoxia (principal); J44.1 Chronic obstructive pulmonary disease with (acute) exacerbation; F20.0 Paranoid schizophrenia; Z68.42 Body mass index [BMI] 45.0-49.9, adult; I42.9 Cardiomyopathy, unspecified; E11.40 Type 2 diabetes mellitus with diabetic neuropathy, unspecified; E03.9 Hypothyroidism, unspecified; K58.9 Irritable bowel syndrome, unspecified; K21.9 Gastro-esophageal reflux disease without esophagitis; I10 Essential (primary) hypertension; E78.00 Pure hypercholesterolemia, unspecified; I25.10 Atherosclerotic heart disease of native coronary artery without angina pectoris; F41.8 Other specified anxiety disorders; E78.5 Hyperlipidemia, unspecified; E66.01 Morbid (severe) obesity due to excess calories; I27.20 Pulmonary hypertension, unspecified; Z96.659 Presence of unspecified artificial knee joint; R26.9 Unspecified abnormalities of gait and mobility; F70 Mild intellectual disabilities; K59.09 Other constipation; F41.9 Anxiety disorder, unspecified; F32.9 Major depressive disorder, single episode, unspecified; N32.81 Overactive bladder; Z90.710 Acquired absence of both cervix and uterus; Z88.0 Allergy status to penicillin; Z88.2 Allergy status to sulfonamides; Z88.8 Allergy status to other drugs, medicaments and biological substances; Z88.6 Allergy status to analgesic agent; Z86.73 Personal history of transient ischemic attack (TIA), and cerebral infarction without residual deficits; Z88.1 Allergy status to other antibiotic agents; Z91.040 Latex allergy status; Z98.51 Tubal ligation status; Z83.3 Family history of diabetes mellitus; I25.2 Old myocardial infarction; Z82.49 Family history of ischemic heart disease and other diseases of the circulatory system; Z82.3 Family history of stroke; Z82.61 Family history of arthritis
CPT/HCPCS: 36415; 71045; 71275; 76770; 80048; 80053; 81001; 82962; 83735; 84484; 85025; 85379; 87086; 87641; 93005; 93306; 93971; 94640; J0696; J0744; J1650; J7030; J7613; Q9967; 97116; 97530; 99285-25; G0378

== ENCOUNTER → 2019-07-11 | Outpatient (CLI) | payer OTHER ==
[~2019-07-11] MED LIST changes: +AMLO10TA8 PO; +FLUP5TAB3 PO; +LEVO500T59 PO; +LORA10TA3 PO; +ONDA-84 PO; -ONDA4TAB11 PO; -OXYB10TA2 PO; +OXYB10TA26 PO; +OXYB5TAB10 PO
--- NOTE | 2019-07-11 14:56 | RAD ---
DATE: 07/11/2019 EXAM: DIGITAL SCREEN BILAT W/CAD HISTORY: Routine screening COMPARISON: 07/09/2008, 10/15/2014, 10/19/2015, 05/22/2018 mammographic exams This study was interpreted with the benefit of Computerized Aided Detection (CAD). Breast Density: SCATTERED The breast parenchyma shows scattered fibroglandular densities. Breast parenchyma level B. FINDINGS: No suspicious calcific lesion or distortion. Small asymmetry at the right outer breast is present is present 8.3 cm from nipple. This may been present on previous exams although it is somewhat more evident on the current exam. This may be due to differences in positioning. IMPRESSION: Right outer breast asymmetry BI-RADS CATEGORY: 0 INCOMPLETE: NEEDS ADDITIONAL IMAGING EVALUATION AND/OR PRIOR MAMMOGRAMS FOR COMPARISON. RECOMMENDED FOLLOW-UP: ADD ADDITIONAL IMAGING. Spot impression imaging of the right outer breast recommended. Ultrasound may be needed. . PQRS compliance statement: Patient information was entered into a reminder system with a target due date for the next mammogram. Mammography is a sensitive method for finding small breast cancers, but it does not detect them all and is not a substitute for careful clinical examination. A negative mammogram does not negate a clinically suspicious finding and should not result in delay in biopsying a clinically suspicious abnormality. "Our facility is accredited by the [employer] Mammography Program."
== END | disposition home or self-care (01) ==
LOC: MAMMO 13:42
PROVIDERS: ATTEND Family Medicine
DX: Z12.31 Encounter for screening mammogram for malignant neoplasm of breast (principal)
CPT/HCPCS: 77067

== ENCOUNTER → 2019-08-01 | Outpatient (CLI) | payer OTHER ==
--- NOTE | 2019-08-01 13:39 | RAD ---
DATE: 08/01/2019 EXAM: DIGITAL DIAGNOSTIC RT HISTORY: Abnormal mammogram COMPARISON: 07/11/2019 This study was interpreted with the benefit of Computerized Aided Detection (CAD). Breast Density: SCATTERED The breast parenchyma shows scattered fibroglandular densities. Breast parenchyma level B. FINDINGS: Spot compression imaging of the right outer breast was performed in the CC projection. No persistent asymmetry. IMPRESSION: Unremarkable BI-RADS CATEGORY: 1 NEGATIVE RECOMMENDED FOLLOW-UP: 12M 12 MONTH FOLLOW-UP PQRS compliance statement: Patient information was entered into a reminder system with a target due date for the next mammogram. Mammography is a sensitive method for finding small breast cancers, but it does not detect them all and is not a substitute for careful clinical examination. A negative mammogram does not negate a clinically suspicious finding and should not result in delay in biopsying a clinically suspicious abnormality. "Our facility is accredited by the [employer] Mammography Program."
== END | disposition home or self-care (01) ==
LOC: MAMMO 12:47
PROVIDERS: ATTEND Family Medicine
DX: R92.8 Other abnormal and inconclusive findings on diagnostic imaging of breast (principal)
CPT/HCPCS: 77065

== ENCOUNTER 2020-06-06 18:01 | Emergency (ER) | payer OTHER ==
[~2020-06-06] VITALS: Ht 157.5 cm; Wt 100.0 kg
[~2020-06-06 18:01] MED LIST changes: +AMLO-187 PO; -AMLO10TA8 PO; +MELA3TAB4 PO; -MELA3TAB56 PO; +MULT-445 PO; -MULT1TAB52 PO; -RISP0.5T3 PO; +RISP0.5T62 PO; -ROPI1TAB2 PO; +ROPI1TAB4 PO; -SIME125C76 PO; +SIME125C85 PO
--- NOTE | 2020-06-06 18:55 | PHYS DOC ---
Past Medical History Past Medical History: Anxiety, Asthma, COPD, CVA, Depression, Diabetes-Type II, Diverticulitis, GERD, High Cholesterol, Hypertension, IBS, CO, Schizophrenia, Other Additional Past Medical Histor: CATARCTS, NEUROPATHY, colitis, overactive bladder Past Surgical History: Hysterectomy, Knee Replacement, Tonsillectomy, Other Additional Past Surgical Histo: CARPAL TUNNEL, HERNIA, neck, back, L knee Smoking Status: Never Smoker Alcohol Use: None Drug Use: None General Adult EDM: Chief Complaint: MECHANICAL FALL HPI: HPI: Patient is a 64 year old female who presents with a fall that occurred around noon. [place] and [place] ambulance. Pt states she did hit her head but had no loss of consciousness. Pt admits balance issues. She did feel dizzy and lightheaded after and "saw stars" in her vision. Pt has no new numbness or tingling. Pt complains of 10/10 neck pain as well. Pt states that it hurts to move around. Review of Systems: Review of Systems: Constitutional: Denies fever or chills Eyes: Denies redness or eye pain HENT: Denies nasal congestion or sore throat Respiratory: Denies cough or shortness of breath Cardiovascular: Denies chest pain or palpitations GI: Denies abdominal pain, nausea, or vomiting : Denies dysuria or hematuria Musculoskeletal: Denies joint pain, endorses neck pain Integument: Denies rash or skin lesions Neurologic: Denies headache, focal weakness or sensory changes Complete systems were reviewed and found to be within normal limits, except as documented in this note. Current Medications: Current Medications Medications (Trade) Dose Ordered Sig/[facility] Start Time Stop Time Status Last Admin Dose Admin Orphenadrine Citrate (Norflex) 60 mg 1X ONCE 06/06/20 19:00 06/06/20 19:01 Allergies: Allergies: Allergies Coded Allergies Type Severity Reaction Last Updated Verified Sulfa (Sulfonamide Antibiotics) Allergy Intermediate UNKNOWN REACTION 02/02/17 Yes adhesive tape Allergy Intermediate RASH 02/01/17 Yes latex Allergy Intermediate LATEX GLOVES CAUSE A RASH 02/01/17 Yes I S O L A T I O N *CONTACT* Allergy Unknown 02/01/17 Yes Penicillins Adverse Reaction Severe DIARRHEA 06/11/15 Yes atorvastatin Adverse Reaction Severe MYALGIA 06/11/15 Yes haloperidol Adverse Reaction Severe "I get stiff as a board" 06/11/15 Yes CLAIRE Inhibitors Adverse Reaction Intermediate BAD COUGH 06/11/15 Yes amoxicillin trihydrate Adverse Reaction Intermediate diarrhea 06/11/15 Yes aspirin Adverse Reaction Intermediate "Black tarry stools" 06/11/15 Yes Physical Exam: PE: Constitutional: Well developed, well nourished, no acute distress, non-toxic appearance HENT: Normocephalic, atraumatic Eyes: PERRL, EOMI, conjunctiva normal, no discharge Neck: Tenderness to palpation on midline and spinous processes, supple Lungs & Thorax: No respiratory distress, equal chest rise and fall Abdomen: Soft, no tenderness; pelvis stable and nontender Skin: Warm, dry, no erythema, no rash Back: No tenderness, no CVA tenderness Extremities: No tenderness, ROM intact, no edema Neurologic: Alert and oriented X 3, normal motor function, normal sensory function, no focal deficits noted Psychologic: Affect normal, schizophrenic EKG: EKG: HR: 80bpm, normal sinus rhythm, No St changes, multiple PVCs, QRS: 90ms, QT/QTc: 336/391ms Radiology/Procedures: Radiology/Procedures: PROCEDURE: CT HEAD AND CERVICAL SPINE WO CT scan of the head without contrast 06/06/2020 Clinical History: Head injury post fall. Technique: Unenhanced, contiguous, 5 mm axial sections were obtained through the head. One or more of the following individualized dose reduction techniques were utilized for this study: 1. Automated exposure control. 2. Adjustment of the mA and/or kV according to patient size. 3. Use of iterative reconstruction technique. Findings: There is generalized parenchymal atrophy. Areas of decreased attenuation are seen within the periventricular and subcortical white matter of both cerebral hemispheres consistent with areas of small vessel ischemic disease. No acute parenchymal abnormality is seen. No extra-axial fluid collection is noted. No skull fracture is seen. Impression: No acute intracranial abnormality is seen. CT scan of the cervical spine without contrast 06/06/2020 Clinical history: Fall with neck injury. Technique: Unenhanced, contiguous, 0.625 mm axial sections were obtained through the cervical spine. Axial, coronal and sagittal reconstructed images were obtained. One or more of the following individualized dose reduction techniques were utilized for this study: 1. Automated exposure control. 2. Adjustment of the mA and/or kV according to patient size. 3. Use of iterative reconstruction technique. Findings: Sagittal and coronal reconstructed images demonstrate reversal of the normal cervical lordosis. The Patient is post laminectomy and posterolateral fusion using pedicle screws and stabilizing rods extending from C3 to C7. Flowing ossification of the anterior longitudinal ligament is seen throughout the cervical spine which likely reflects DISH. Degenerative changes consisting of varying degrees of disc space narrowing, vertebral endplate sclerosis is seen throughout the cervical disc spaces. No fracture or subluxation of the cervical vertebrae is seen. Degenerative changes are seen involving the uncovertebral and facet joints throughout the cervical disc spaces. Impression: No fracture or subluxation of the cervical vertebra is identified. Electronically signed by: Chris Robles MD (06/06/2020 7:14 PM) [id number] Course & Med Decision Making: Course & Med Decision Making Pertinent Labs and Imaging studies reviewed. (See chart for details) 64 yo female presents after fall in bathroom. Pt did hit her head but had no loss of consciousness. Labs obtained and posted. CT head obtained and demonstrated no acute findings. Symptomatic treatment provided. Patient stable for discharge with outpatient follow-up with PCP. Discussed findings and plan with patient, who acknowledges understanding and agreement. Dragon Disclaimer: Netzoptiker Disclaimer: This electronic medical record was generated, in whole or in part, using a voice recognition dictation system. Departure Departure Impression: Primary Impression: Fall Qualified Codes: W19.XXXA - Unspecified fall, initial encounter Additional Impression: Cervical muscle strain Qualified Codes: S16.1XXA - Strain of muscle, fascia and tendon at neck level, initial encounter Disposition: 01 DC HOME SELF CARE/HOMELESS Condition: STABLE Referrals: ZAIDA VALDEZ MD (PCP) BLANCA YBARRA MD Patient Instructions: Cervical Strain and Sprain with Rehab-SportsMed, Fall Prevention and Home Safety, [id number] Scripts Orphenadrine Citrate (ORPHENADRINE CITRATE) 100 Mg Tablet.er 100 MG PO BID PRN for PAIN, #14 TAB Prov: ZAIDA TOUSSAINT DO 06/06/20 ZAIDA TOUSSAINT DO Jun 06, 2020 18:54
[2020-06-06] MEDS ORDERED: ORPHENADRINE CITRATE 60 MG/2 ML VIAL. IV ONE (19:00)
--- NOTE | 2020-06-06 19:17 | RAD ---
CT scan of the head without contrast 06/06/2020 Clinical History: Head injury post fall. Technique: Unenhanced, contiguous, 5 mm axial sections were obtained through the head. One or more of the following individualized dose reduction techniques were utilized for this study: 1. Automated exposure control. 2. Adjustment of the mA and/or kV according to patient size. 3. Use of iterative reconstruction technique. Findings: There is generalized parenchymal atrophy. Areas of decreased attenuation are seen within the periventricular and subcortical white matter of both cerebral hemispheres consistent with areas of small vessel ischemic disease. No acute parenchymal abnormality is seen. No extra-axial fluid collection is noted. No skull fracture is seen. Impression: No acute intracranial abnormality is seen. CT scan of the cervical spine without contrast 06/06/2020 Clinical history: Fall with neck injury. Technique: Unenhanced, contiguous, 0.625 mm axial sections were obtained through the cervical spine. Axial, coronal and sagittal reconstructed images were obtained. One or more of the following individualized dose reduction techniques were utilized for this study: 1. Automated exposure control. 2. Adjustment of the mA and/or kV according to patient size. 3. Use of iterative reconstruction technique. Findings: Sagittal and coronal reconstructed images demonstrate reversal of the normal cervical lordosis. The Patient is post laminectomy and posterolateral fusion using pedicle screws and stabilizing rods extending from C3 to C7. Flowing ossification of the anterior longitudinal ligament is seen throughout the cervical spine which likely reflects DISH. Degenerative changes consisting of varying degrees of disc space narrowing, vertebral endplate sclerosis is seen throughout the cervical disc spaces. No fracture or subluxation of the cervical vertebrae is seen. Degenerative changes are seen involving the uncovertebral and facet joints throughout the cervical disc spaces. Impression: No fracture or subluxation of the cervical vertebra is identified. Electronically signed by: Chris Robles MD (06/06/2020 7:14 PM) [id number]
[2020-06-06 19:54] LABS: BILIRUBIN,URINE NEGATIVE (NEG); CLARITY,URINE CLEAR; COLOR,URINE YELLOW; NITRITE,URINE NEGATIVE (NEG); PROTEIN,URINE NEGATIVE (NEG-TRACE)
[2020-06-06 19:58] LABS: BASO # 0.1 x10^3/uL (0.0-0.2); BASO % 1 % (0-3); EOS % 0 % (0-3); HEMATOCRIT 39.2 % (36.0-47.0); HEMOGLOBIN 12.7 g/dL (12.0-15.5); LYMPH # 2.4 x10^3/uL (1.0-4.8); LYMPH % 25 % (24-48); MEAN CORPUSCULAR HEMOGLOBIN 30 pg (25-35); MEAN CORPUSCULAR HGB CONC 32 g/dL (31-37); MEAN CORPUSCULAR VOLUME 94 fL (79-100); MONO # 0.9 x10^3/uL (0.0-1.1); MONO % 9 % (0-9); NEUT # 6.3 x10^3/uL (1.8-7.7); NEUT % 65 % (31-73); PLATELET COUNT 213 x10^3/uL (140-400); RED CELL DISTRIBUTION WIDTH 13.9 % (11.5-14.5); WHITE BLOOD COUNT 9.7 x10^3/uL (4.0-11.0)
[2020-06-06] MEDS ORDERED: ORPHENADRINE CITRATE 60 MG/2 ML VIAL. IM ONE (20:00)
[2020-06-06 20:02] LABS: AMORPHOUS SEDIMENT,UR PRESENT /HPF; BACTERIA,URINE 0 /HPF (0-FEW); RBC,URINE 0 /HPF (0-2); WBC,URINE RARE /HPF (0-4)
[2020-06-06 20:11] LABS: CALCIUM 8.9 mg/dL (8.5-10.1); GFR 67.5; POTASSIUM 3.4 mmol/L (3.5-5.1)
[2020-06-06 20:15] LABS: VAL ACID 69 mcg/mL (50-100)
[2020-06-06 20:16] LABS: ALBUMIN 3.4 g/dL (3.4-5.0); ALBUMIN/GLOBULIN RATIO 0.9 (1.0-1.7); MAGNESIUM 2.3 mg/dL (1.8-2.4); TOTAL BILIRUBIN 0.1 mg/dL (0.2-1.0); TOTAL PROTEIN 7.2 g/dL (6.4-8.2)
[2020-06-06] MEDS ORDERED: ORPH100T PO (21:32)
[2020-06-06 22:16] VITALS: BP 139/64
--- NOTE | 2020-06-08 08:00 | EKG ---
[facility] [address] [place] [address] Test Date: 2020-06-06 Test Time: 18:49:17 Pat Name: NOREEN GUTIERREZ Department: Room: Gender: F [employer]: : 1955 Requested By: ZAIDA TOUSSAINT Order Number: [id number] Reading MD: Henrique Sepulveda Measurements Intervals [place] Rate: 80 P: 13 [place]: 164 QRS: 12 QRSD: 90 T: 70 QT: 336 QTc: 391 Interpretive Statements SINUS RHYTHM VENTRICULAR PREMATURE COMPLEX(ES) ABNORMAL ECG Electronically Signed On 06-09-2020 10:50:40 SITE SUPERVISOR by Henrique Sepulveda
== END 2020-06-06 22:38 | disposition home or self-care (01) ==
LOC: ER 18:01
DX: S16.1XXA Strain of muscle, fascia and tendon at neck level, initial encounter (principal); R42 Dizziness and giddiness; J44.9 Chronic obstructive pulmonary disease, unspecified; K21.9 Gastro-esophageal reflux disease without esophagitis; E11.40 Type 2 diabetes mellitus with diabetic neuropathy, unspecified; F20.9 Schizophrenia, unspecified; K58.9 Irritable bowel syndrome, unspecified; Z86.73 Personal history of transient ischemic attack (TIA), and cerebral infarction without residual deficits; E78.00 Pure hypercholesterolemia, unspecified; I25.2 Old myocardial infarction; Z90.710 Acquired absence of both cervix and uterus; W18.39XA Other fall on same level, initial encounter; Y93.89 Activity, other specified; Y92.89 Other specified places as the place of occurrence of the external cause; Y99.8 Other external cause status
CPT/HCPCS: 36415; 70450; 72125; 80053; 80164; 81001; 82553; 83735; 84484; 85025; 93005; 96372; 99285; J2360

== ENCOUNTER → 2020-09-07 | Outpatient (CLI) | payer OTHER ==
[~2020-09-07] MED LIST changes: +MIRA25TA PO; -MIRA50TA PO; +ORPH100T PO
--- NOTE | 2020-09-08 13:00 | RAD ---
DATE: 09/07/2020 2:39 PM EXAM: DIGITAL SCREEN BILAT W/CAD HISTORY: Screening COMPARISON: 07/11/2019, 05/22/2018 Bilateral full field craniocaudal and mediolateral oblique images were obtained using digital technique. This study was interpreted with the benefit of Computerized Aided Detection (CAD). FINDINGS: Breast Density: SCATTERED The breast parenchyma shows scattered fibroglandular densities. Breast parenchyma level B No suspicious masses, microcalcifications or architectural distortion is present to suggest malignancy in either breast. The visualized axillae are unremarkable. IMPRESSION: No mammographic evidence of malignancy. BI-RADS CATEGORY: 1 NEGATIVE RECOMMENDED FOLLOW-UP: 12M 12 MONTH FOLLOW-UP Annual screening mammography is recommended, unless clinically indicated sooner based on symptoms or change in physical exam. PQRS compliance statement: Patient information was entered into a reminder system with a target due date for the next mammogram. Mammography is a sensitive method for finding small breast cancers, but it does not detect them all and is not a substitute for careful clinical examination. A negative mammogram does not negate a clinically suspicious finding and should not result in delay in biopsying a clinically suspicious abnormality. "Our facility is accredited by the [employer] Mammography [employer]."
== END ==
LOC: MAMMO 14:32
PROVIDERS: ATTEND Family Medicine
DX: Z12.31 Encounter for screening mammogram for malignant neoplasm of breast (principal)
CPT/HCPCS: 77067